=== PATIENT | female | born 1985 | race Caucasian/White ===

== ENCOUNTER 2018-10-30 08:59 | Inpatient (IN) | payer OTHER ==
[2018-10-30 09:50] VITALS: BMI 32.4
--- NOTE | 2018-10-30 13:25 | HP ---
CIWA Score Nausea/Vomitin-Mild Nausea/No Vomiting Muscle Tremors: 1-None Visible, but [place] Anxiety: 2 Agitation: 1-Slight > Activity Paroxysmal Sweats: 3 Orientation: 0-Oriented Tacttile Disturbances: 1-Very Mild Itch/Numbness Auditory Disturbances: 0-None Visual Disturbances: 0-None Headache: 1-Very Mild CIWA-Ar Total Score: 10 - Admission Criteria OASAS Guidelines: Admission for Medically Managed Detox: Requires at least one of the followin. CIWA greater than 12 2. Seizures within the past 24 hours 3. Delirium tremens within the past 24 hours 4. Hallucinations within the past 24 hours 5. Acute intervention needed for co occurring medical disorder 6. Acute intervention needed for co occurring psychiatric disorder 7. Severe withdrawal that cannot be handled at a lower level of care (continued vomiting, continued diarrhea, abnormal vital signs) requiring intravenous medication and/or fluids 8. Patient presents the following: Seizures, delirium tremens or hallucinations in the past 12 hours Admission Criteria Met: Admission criteria met Admission ROS S - [facility] Chief Complaint: I came to detox , i dont want to keep using drugs Allergies/Adverse Reactions: Allergies Allergy/AdvReac Type Severity Reaction Status Date / Time No Known Drug Allergies Allergy Verified 01/27/17 16:17 fish Allergy Severe Difficulty Uncoded 01/27/17 10:37 Breathing History of Present Illness: 33 y/o f pt with h/o polysubstance abuse/dependency since age 17.Pt has undergone multiple detoxs/ rehab and terminal supervisor programs . Now pt is seeking detox from benzos, alcohol . Pt is on OTP getting methadone 20mg /d but continue to use heroin 2 bags iv /day. Exam Limitations: No Limitations - Ebola screening Have you traveled outside of the country in the last 21 days: No Have you had contact with anyone from an Ebola affected area: No Do you have a fever: No - Review of Systems Constitutional: Night Sweats, Changes in sleep EENT: reports: Dental Problems (few missing teeth) Respiratory: reports: No Symptoms reported Cardiac: reports: No Symptoms Reported GI: reports: Constipated, Abdominal cramping : reports: Other (difficulty voiding) Musculoskeletal: reports: No Symptoms Reported Integumentary: reports: Rash (on abdomen) Neuro: reports: Headache (h/o migraines - last 2 months ago), Seizure Endocrine: reports: No Symptoms Reported Hematology: reports: No Symptoms Reported Psychiatric: reports: Agitated, Anxious, Depressed Other Systems: Reviewed and Negative Patient History - Patient Medical History Hx Anemia: No Hx Asthma: No Hx Chronic Obstructive Pulmonary Disease (COPD): No Hx Cancer: No Hx Cardiac Disorders: No Hx Congestive Heart Failure: No Hx Hypertension: Yes (catapres) Hx Hypercholesterolemia: No Hx Pacemaker: No HX Cerebrovascular Accident: No Hx Seizures: Yes (last 2011) Hx Dementia: No Hx Diabetes: No Hx Gastrointestinal Disorders: No Hx Liver Disease: No Hx Genitourinary Disorders: No Hx Sexually Transmitted Disorders: No Hx Renal Disease (ESRD): No Hx Thyroid Disease: No Hx Human Immunodeficiency Virus (HIV): No (negative test 6 months ago. ) Hx Hepatitis C: Yes (dx'ed 2017, no tx ) Hx Depression: Yes Hx Suicide Attempt: Yes (2007- pill OD with xanax , percocet ) Hx Bipolar Disorder: Yes Hx Schizophrenia: Yes (schizoeffecive d/o ) - Patient Surgical History Past Surgical History: No Hx Neurologic Surgery: No Hx Cataract Extraction: No Hx Cardiac Surgery: No Hx Lung Surgery: No Hx Breast Surgery: No Hx Breast Biopsy: No Hx Abdominal Surgery: No Hx Appendectomy: No Hx Cholecystectomy: No Hx Genitourinary Surgery: No Hx Section: No Hx Orthopedic Surgery: No Hx Hysterectomy: No Anesthesia Reaction: No - PPD History Documented Results: Negative w/o proof PPD to be Administered?: No - Reproductive History Patient is a Female of Child Bearing Age (11 -55 yrs old): Yes Last Menstrual Period: 10/30/18 LMP comment: previous lmp 08/2018 Patient : No - Smoking Cessation Smoking history: Current every day smoker Have you smoked in the past 12 months: Yes Aproximately how many cigarettes per day: 20 Hx Chewing Tobacco Use: No Initiated information on smoking cessation: Yes 'Breaking Loose' booklet given: 10/30/18 - Substance & Tx. History Hx Alcohol Use: Yes Hx Substance Use: Yes Substance Use Type: Alcohol, Tranquilizers Hx Substance Use Treatment: Yes (multiple @ [facility] OTP. ) - Substances abused Alprazolam (Xanax) Substance route: Oral Frequency: Daily Amount used: 2-2 mg/day Age of first use: 21 Date of last use: 10/24/18 Alcohol Substance route: Oral Frequency: Daily Amount used: [id number]/day or vodka 1 pt /day Age of first use: 16 Date of last use: 10/30/18 Benzodiazepine (Klonopin) Substance route: Oral Frequency: Daily Amount used: 2mg bid Age of first use: 21 Date of last use: 10/30/18 Family Disease History - Family Disease History Family History: Unable to Obtain Other Family History: no family members Admission Physical Exam [facility] - Vital Signs Vital Signs: Vital Signs - 24 hr 10/30/18 09:17 Temperature 97.9 F Pulse Rate 88 Respiratory 18 Rate Blood Pressure 142/84 33 y/o obese f pt in nad appearing tired , cooperative with exam . - Physical General Appearance: Yes: Obese, Sweating, Anxious HEENTM: Yes: EOMI, Normocephalic, JAMIE, Muffled/Hoarse Voice Respiratory: Yes: Chest Non-Tender, Lungs Clear, Normal Breath Sounds, No Respiratory Distress Neck: Yes: Supple, Trachea in good position Breast: Yes: Breast Exam Deferred Cardiology: Yes: Regular Rhythm, Regular Rate, S1, S2 Abdominal: Yes: Non Tender, Soft, Increased Bowel Sounds, Protuberent Genitourinary: Yes: Hesitency Back: Yes: Decreased Range of Motion Musculoskeletal: Yes: Back pain Neurological: Yes: worship leader II-XII NML intact, Fully Oriented, Alert, Depressed Affect Integumentary: Yes: Moist, Track [place] (left > rt), Other (multiple tattos) Lymphatic: Yes: Within Normal Limits - Diagnostic (1) Alcohol dependence with uncomplicated withdrawal Current Visit: Yes Status: Chronic (2) Nicotine dependence Current Visit: Yes Status: Chronic (3) Opioid dependence on agonist therapy Current Visit: Yes Status: Chronic (4) Schizoaffective disorder Current Visit: Yes Status: Chronic (5) Migraines Current Visit: No Status: Chronic Cleared for Admission [facility] - Detox or Rehab [facility] Level of Care: Medically Managed Detox Regimen/Protocol: Valium Breathalyzer - Breathalyzer Breathalyzer: 0 Urine Drug Screen - Test Device Lot number: [id number] Expiration date: 08/08/20 - Control Is test valid?: Yes - Results Drug screen NEGATIVE: No Urine drug screen results: THC-Marijuana, FEN-Fentanyl, MOP-Opiates, OXY- Oxycodone, MTD-Methadone Inpatient Rehab Admission - Rehab Decision to Admit Inpatient rehab admission?: No - Initial Determination Are CD services needed?: Yes Free of communicable disease: Yes Not in need of hospitalization: No - Rehab Admission Criteria Previous failed treatment: Yes Poor recovery environment: Yes Comorbidities: No Lacks judgement: Yes Patient is meeting Inpatient Rehab admission criteria:: Yes
[2018-10-30] MEDS ORDERED: IBUPROFEN 400 MG TABLET (FP) PO PRN (13:50)
[2018-10-30] MEDS ORDERED: NICOTINE POLACRILEX 4 MG GUM BUC PRN (13:50)
[2018-10-30] MEDS ORDERED: ACETAMINOPHEN 325 MG TABLET (FP) PO PRN ×2 (13:50)
[2018-10-30] MEDS ORDERED: MENTHOL/PHENOL 1 EACH UD MM PRN (13:50)
[2018-10-30] MEDS ORDERED: MAG HYDROX/AL HYDROX/SIMETH 30 ML UNIT-DOSE CUP PO PRN (13:50)
[2018-10-30] MEDS ORDERED: hydrOXYzine HCL 25 MG TABLET (FP) PO PRN (13:50)
[2018-10-30] MEDS ORDERED: diazePAM 5 MG TABLET PO PRN (13:50)
[2018-10-30] MEDS ORDERED: MAGNESIUM CITRATE 300 ML BOTTLE PO PRN (13:50)
[2018-10-30] MEDS ORDERED: BISMUTH SUBSALICYLATE 262 MG/15 ML BTL PO PRN (13:50)
[2018-10-30] MEDS ORDERED: ONDANSETRON *ODT* 4 MG TABLET SL PRN (13:50)
[2018-10-30] MEDS ORDERED: guaiFENesin 200 MG/10 ML 10 ML UNIT-DOSE CUPS PO PRN (13:50)
[2018-10-30] MEDS ORDERED: MAGNESIUM HYDROX 2400MG/30ML ORAL SUSPENSION 30 ML CUP PO PRN (13:50)
[2018-10-30] MEDS: diazePAM 5 MG TABLET PO SCH ×2 (15:10→22:39)
[2018-10-30] MEDS: MELATONIN 5 MG TABLETS PO PRN (22:39)
[2018-10-30] MEDS: THIAMINE HCL 100 MG TABLET (FP) PO SCH (22:39)
[2018-10-30] MEDS: CLOTRIMAZOLE/BETAMET DIPROP 15 GM TUBE TP SCH (22:41)
[2018-10-30] MEDS: cloNIDine HCL 0.1 MG TABLET PO SCH (23:30)
[2018-10-31] MEDS: METHADONE HCL 40 MG DISPERSABLE TABLET PO SCH (06:06)
[2018-10-31] MEDS: diazePAM 5 MG TABLET PO SCH ×3 (06:06→22:15)
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
[2018-10-31] MEDS: CLOTRIMAZOLE/BETAMET DIPROP 15 GM TUBE TP SCH ×2 (10:50→22:16)
[2018-10-31] MEDS: cloNIDine HCL 0.1 MG TABLET PO SCH ×2 (10:50→22:15)
[2018-10-31] MEDS: NICOTINE 21 MG/24 HOURS TOPICAL PATCH TD SCH (10:50)
[2018-10-31] MEDS: PRENATAL VITAMINS W/ FOLIC ACID TABLET (FP) PO SCH (10:50)
--- NOTE | 2018-10-31 11:47 | PN ---
S CIWA - CIWA Score Nausea/Vomitin-No Nausea/No Vomiting Muscle Tremors: 3 Anxiety: 3 Agitation: 3 Paroxysmal Sweats: 3 Orientation: 0-Oriented Tacttile Disturbances: 0-None Auditory Disturbances: 0-None Visual Disturbances: 0-None Headache: 0-None Present CIWA-Ar Total Score: 12 [facility] Progress Note (SOAP) Subjective: headache sweats shakes interrupted sleep tired restless agitation Objective: 10/31/18 11:46 Vital Signs Temperature 97.9 F 10/31/18 10:01 Pulse Rate 66 10/31/18 10:01 Respiratory Rate 16 10/31/18 10:01 Blood Pressure 111/70 10/31/18 10:01 O2 Sat by Pulse Oximetry (%) Laboratory Tests 10/30/18 13:10 POC Urine HCG, Qual Negative rest of labs pending aaox3 ambulating no acute distress Assessment: 10/31/18 11:47 withdrawal sx Plan: continue detox increase fluids motrin/tylenol prn
[2018-10-31 12:23] LABS: ALBUMIN 3.8 g/dl (3.4-5.0); BILIRUBIN,TOTAL 0.4 mg/dL (0.2-1); BLOOD UREA NITROGEN 9.9 mg/dL (7-18); CALCIUM 9.3 mg/dL (8.5-10.1); CREATININE 1.2 mg/dL (0.55-1.3); POTASSIUM 3.7 mmol/L (3.5-5.1); TOT PROT 7.8 g/dl (6.4-8.2)
[2018-10-31 12:25] LABS: BASO % 0.4 % (0-2.0); EOS % 3.9 % (0-4.5); HEMATOCRIT 43.5 % (32.4-45.2); HEMOGLOBIN 14.9 GM/dL (10.7-15.3); LYMPH % 41.5 % (8-40); MCH 30.7 pg (25.7-33.7); MCHC 34.1 g/dl (32.0-36.0); MEAN CELL VOLUME 89.9 fl (80-96); MONO % 6.5 % (3.8-10.2); NEUT % 47.7 % (42.8-82.8); PLATELET COUNT 223 K/MM3 (134-434); RBC 4.84 M/mm3 (3.60-5.2); RDW 13.8 % (11.6-15.6); WHITE BLOOD COUNT 6.3 K/mm3 (4.0-10.0)
[2018-10-31] MEDS ORDERED: SUVOREXANT 10 MG TABLET PO PRN (22:00)
[2018-10-31] MEDS ORDERED: PRAZOSIN HCL 1 MG CAPSULE PO SCH (22:00)
[2018-10-31] MEDS: QUEtiapine FUMARATE 400 MG TABLET PO SCH (22:14)
[2018-10-31] MEDS: THIAMINE HCL 100 MG TABLET (FP) PO SCH (22:15)
[2018-11-01] MEDS: METHADONE HCL 40 MG DISPERSABLE TABLET PO SCH (05:54)
[2018-11-01] MEDS: diazePAM 5 MG TABLET PO SCH ×2 (05:55→17:14)
[2018-11-01] MEDS: PRENATAL VITAMINS W/ FOLIC ACID TABLET (FP) PO SCH (10:20)
[2018-11-01] MEDS: cloNIDine HCL 0.1 MG TABLET PO SCH ×2 (10:20→22:14)
[2018-11-01] MEDS: NICOTINE 21 MG/24 HOURS TOPICAL PATCH TD SCH (10:22)
[2018-11-01] MEDS: CLOTRIMAZOLE/BETAMET DIPROP 15 GM TUBE TP SCH ×2 (10:22→22:20)
--- NOTE | 2018-11-01 12:52 | PN ---
S CIWA - CIWA Score Nausea/Vomitin-No Nausea/No Vomiting Muscle Tremors: 3 Anxiety: 2 Agitation: 2 Paroxysmal Sweats: 1-Minimal Palms Moist Orientation: 0-Oriented Tacttile Disturbances: 0-None Auditory Disturbances: 0-None Visual Disturbances: 0-None Headache: 0-None Present CIWA-Ar Total Score: 8 B[facility] Progress Note (SOAP) Subjective: sweats I want my methadone scheduled for 7am not 6am. the timing is too early for me Objective: 11/01/18 12:50 Vital Signs Temperature 97.7 F 11/01/18 09:24 Pulse Rate 87 11/01/18 09:24 Respiratory Rate 16 11/01/18 09:24 Blood Pressure 109/58 L 11/01/18 09:24 O2 Sat by Pulse Oximetry (%) Laboratory Tests 10/30/18 10/31/18 10/31/18 13:10 07:00 07:00 WBC RBC Hgb Hct MCV MCH MCHC RDW Plt Count MPV Absolute Neuts (auto) Neutrophils % Lymphocytes % Monocytes % Eosinophils % Basophils % Nucleated RBC % Sodium 138 Potassium 3.7 Chloride 104 Carbon Dioxide 28 Anion Gap 7 L BUN 9.9 Creatinine 1.2 Est GFR (CKD-EPI)AfAm 69.25 Est GFR (CKD-EPI)NonAf 59.75 Random Glucose 145 H Calcium 9.3 Total Bilirubin 0.4 AST 25 ALT 42 Alkaline Phosphatase 85 Total Protein 7.8 Albumin 3.8 POC Urine HCG, Qual Negative RPR Titer Nonreactive 10/31/18 07:00 WBC 6.3 RBC 4.84 Hgb 14.9 Hct 43.5 MCV 89.9 MCH 30.7 MCHC 34.1 RDW 13.8 Plt Count 223 MPV 11.0 Absolute Neuts (auto) 3.0 Neutrophils % 47.7 Lymphocytes % 41.5 H Monocytes % 6.5 Eosinophils % 3.9 Basophils % 0.4 Nucleated RBC % 0 Sodium Potassium Chloride Carbon Dioxide Anion Gap BUN Creatinine Est GFR (CKD-EPI)AfAm Est GFR (CKD-EPI)NonAf Random Glucose Calcium Total Bilirubin AST ALT Alkaline Phosphatase Total Protein Albumin POC Urine HCG, Qual RPR Titer labs noted aaox3 ambulating no acute distress Assessment: 11/01/18 12:51 mild withdrawal sx Plan: continue detox increase fluids methadone timing if for 7am as per pt request d/c in am
[2018-11-01] MEDS: METHOCARBAMOL 500 MG TABLET PO PRN (17:13)
[2018-11-01] MEDS: THIAMINE HCL 100 MG TABLET (FP) PO SCH (22:14)
[2018-11-01] MEDS: QUEtiapine FUMARATE 400 MG TABLET PO SCH (22:14)
[2018-11-01] MEDS: MELATONIN 5 MG TABLETS PO PRN (22:17)
[2018-11-02] MEDS ORDERED: diazePAM 5 MG TABLET PO ONE (06:00)
[2018-11-02] MEDS: METHOCARBAMOL 500 MG TABLET PO PRN (06:46)
[2018-11-02] MEDS ORDERED: METHADONE HCL 40 MG DISPERSABLE TABLET PO SCH (07:00)
--- NOTE | 2018-11-02 08:52 | DS ---
[facility] Detox Discharge Summary Admission Date: 10/30/18 Discharge Date: 11/02/18 - History Present History: Alcohol Dependence, Sedative Dependence - Physical Exam Results Vital Signs: Vital Signs Temperature 96.8 F L 11/02/18 06:44 Pulse Rate 88 11/02/18 06:44 Respiratory Rate 16 11/02/18 06:44 Blood Pressure 124/74 11/02/18 06:44 O2 Sat by Pulse Oximetry (%) Pertinent Admission Physical Exam Findings: pt arrived in withdrawal sx Laboratory Tests 10/30/18 10/31/18 10/31/18 13:10 07:00 07:00 WBC RBC Hgb Hct MCV MCH MCHC RDW Plt Count MPV Absolute Neuts (auto) Neutrophils % Lymphocytes % Monocytes % Eosinophils % Basophils % Nucleated RBC % Sodium 138 Potassium 3.7 Chloride 104 Carbon Dioxide 28 Anion Gap 7 L BUN 9.9 Creatinine 1.2 Est GFR (CKD-EPI)AfAm 69.25 Est GFR (CKD-EPI)NonAf 59.75 Random Glucose 145 H Calcium 9.3 Total Bilirubin 0.4 AST 25 ALT 42 Alkaline Phosphatase 85 Total Protein 7.8 Albumin 3.8 POC Urine HCG, Qual Negative RPR Titer Nonreactive 10/31/18 07:00 WBC 6.3 RBC 4.84 Hgb 14.9 Hct 43.5 MCV 89.9 MCH 30.7 MCHC 34.1 RDW 13.8 Plt Count 223 MPV 11.0 Absolute Neuts (auto) 3.0 Neutrophils % 47.7 Lymphocytes % 41.5 H Monocytes % 6.5 Eosinophils % 3.9 Basophils % 0.4 Nucleated RBC % 0 Sodium Potassium Chloride Carbon Dioxide Anion Gap BUN Creatinine Est GFR (CKD-EPI)AfAm Est GFR (CKD-EPI)NonAf Random Glucose Calcium Total Bilirubin AST ALT Alkaline Phosphatase Total Protein Albumin POC Urine HCG, Qual RPR Titer today pt is aaox3 ambulating no acute distress no s/s of withdrawals - Treatment Hospital Course: Detox Protocol Followed, Detoxed Safely, Responded well, Discharged Condition Good, Rehab Referral Accepted Patient has Accepted a [facility] - Medication Discharge Medications: Ambulatory Orders Methadone [Dolophine -] 120 mg PO DAILY 01/27/17 Quetiapine Fumarate [Seroquel -] 800 mg PO HS 01/27/17 cloNIDine HCL [Catapres -] 0.2 mg PO BID 01/27/17 Ziprasidone HCl [Geodon] 80 mg PO DAILY 10/30/18 - Diagnosis (1) Alcohol dependence with uncomplicated withdrawal Current Visit: Yes Status: Chronic (2) Sedative, hypnotic or anxiolytic dependence, uncomplicated Current Visit: Yes Status: Chronic (3) Substance induced mood disorder Current Visit: Yes Status: Acute (4) Substance-induced sleep disorder Current Visit: Yes Status: Acute (5) Bipolar disorder Current Visit: Yes Status: Chronic (6) HTN (hypertension) Current Visit: Yes Status: Chronic Qualifiers: Hypertension type: essential hypertension Qualified Code(s): I10 - Essential (primary) hypertension (7) Hepatitis-C Current Visit: Yes Status: Chronic (8) Nicotine dependence Current Visit: Yes Status: Chronic Qualifiers: Nicotine product type: cigarettes Substance use status: uncomplicated Qualified Code(s): F17.210 - Nicotine dependence, cigarettes, uncomplicated (9) Opioid dependence on agonist therapy Current Visit: Yes Status: Chronic (10) PTSD (post-traumatic stress disorder) Current Visit: Yes Status: Chronic (11) Schizoaffective disorder Current Visit: Yes Status: Chronic (12) Chronic pain of left ankle Current Visit: No Status: Chronic (13) Migraines Current Visit: No Status: Chronic - AMA Did Patient Leave Against Medical Advice: No (pt referred to [facility] inpatient rehab)
[2018-11-02] MEDS: cloNIDine HCL 0.1 MG TABLET PO SCH (09:17)
[2018-11-02] MEDS: PRENATAL VITAMINS W/ FOLIC ACID TABLET (FP) PO SCH (09:17)
[2018-11-02] MEDS: CLOTRIMAZOLE/BETAMET DIPROP 15 GM TUBE TP SCH (09:17)
[2018-11-02] MEDS: NICOTINE 21 MG/24 HOURS TOPICAL PATCH TD SCH (09:18)
[2018-11-02 09:37] VITALS: BP 153/76; PULSE 108; TEMP 97.7
== END 2018-11-02 12:15 | disposition home or self-care (01) | DRG 897 ==
LOC: YASAS 08:59 → Y6N 13:56
PROVIDERS: ADMIT Surgery; ATTEND Surgery
PROC: HZ2ZZZZ Detoxification Services for Substance Abuse Treatment (ICD-10-PCS; principal; 2018-10-30)
DX: F10.230 Alcohol dependence with withdrawal, uncomplicated (principal); F11.20 Opioid dependence, uncomplicated; F19.282 Other psychoactive substance dependence with psychoactive substance-induced sleep disorder; F13.230 Sedative, hypnotic or anxiolytic dependence with withdrawal, uncomplicated; F17.210 Nicotine dependence, cigarettes, uncomplicated; F19.24 Other psychoactive substance dependence with psychoactive substance-induced mood disorder; F31.9 Bipolar disorder, unspecified; F43.10 Post-traumatic stress disorder, unspecified; F25.9 Schizoaffective disorder, unspecified; I10 Essential (primary) hypertension; B18.2 Chronic viral hepatitis C; M25.572 Pain in left ankle and joints of left foot; G89.29 Other chronic pain; E66.9 Obesity, unspecified; Z68.32 Body mass index [BMI] 32.0-32.9, adult; Z86.69 Personal history of other diseases of the nervous system and sense organs; Z91.013 Allergy to seafood; Z91.5 Personal history of self-harm
CPT/HCPCS: 36415; 80053; 81025; 85025; 86593; J0735

== ENCOUNTER 2019-02-13 12:03 | Inpatient (IN) | payer OTHER ==
[2019-02-13 13:45] VITALS: BMI 30.9
--- NOTE | 2019-02-13 16:33 | HP ---
CIWA Score Nausea/Vomitin-No Nausea/No Vomiting Muscle Tremors: 4-Moderate,w/Arms Extend Anxiety: 3 Agitation: 1-Slight > Activity Paroxysmal Sweats: 2 Orientation: 0-Oriented Tacttile Disturbances: 0-None Auditory Disturbances: 0-None Visual Disturbances: 0-None Headache: 2-Mild CIWA-Ar Total Score: 12 - Admission Criteria OASAS Guidelines: Admission for Medically Managed Detox: Requires at least one of the followin. CIWA greater than 12 2. Seizures within the past 24 hours 3. Delirium tremens within the past 24 hours 4. Hallucinations within the past 24 hours 5. Acute intervention needed for co occurring medical disorder 6. Acute intervention needed for co occurring psychiatric disorder 7. Severe withdrawal that cannot be handled at a lower level of care (continued vomiting, continued diarrhea, abnormal vital signs) requiring intravenous medication and/or fluids 8. Admitting History and Physical - Admission Chief Complaint: alcohol abuse History Source: Patient Limitations to Obtaining History: No Limitations - Past Medical History Cardiovascular: Yes: HTN ...LMP: 10/30/18 Psych: Yes: Bipolar, Panic, Other (schizoaffective) - Past Surgical History Past Surgical History: Yes: None - Smoking History Smoking history: Current every day smoker Have you smoked in the past 12 months: Yes Aproximately how many cigarettes per day: 20 - Alcohol/Substance Use Hx Alcohol Use: Yes History of Substance Use: reports: Cocaine, Heroin, Marijuana, Prescription - Social History Usual Living Arrangement: Yes: Other (homeless) Admission [facility] Allergies/Adverse Reactions: Allergies Allergy/AdvReac Type Severity Reaction Status Date / Time No Known Drug Allergies Allergy Verified 02/13/19 13:20 fish Allergy Severe Difficulty Uncoded 02/13/19 13:20 Breathing History of Present Illness: 33 y.o. F PMH bipolar, schizophrenia, panic attacks, HTN. Patient is in methadone program at [address] EtOH: Daily use. Drinks beer, varies on the day. Has passed out from drinking, never fell and hit her head. Last drank 1 beer this morning. Has had 1 seizure many years ago from not drinking. Heroin: daily use, 2 bags. Injects, last use 2 bags this morning. Has been using since age 19. Was clean x 4 years, was in a residential program which helped her. Started using again once she moved back home. Xanax: daily use, 1 stick (2mg) per day. last used this morning. Crack cocaine: used 2 yrs ago mostly, recently had 1 hit but hasnt used consistently in about 1 year Marijuana: occasional Cigarettes: 1 pack/ day since age 17 PSH: none Social hx: homeless currently. Gets SSI. All: NKDA. Food: Fish. Meds: Seroquel, ambien, catapres, gabapentin. Her dr recently d/c'd klonopin 1 month ago Nurse reported patient BP 80/60; I rechecked BP manually, 110/90. Patient has hx of HTN and took her medications as prescribed this morning. Exam Limitations: No Limitations - Ebola screening Have you traveled outside of the country in the last 21 days: No Have you had contact with anyone from an Ebola affected area: No Do you have a fever: No - Review of Systems Constitutional: Diaphoresis, Weakness EENT: reports: No Symptoms Reported Respiratory: reports: No Symptoms reported Cardiac: reports: No Symptoms Reported GI: reports: Abdominal cramping : reports: No Symptoms Reported Musculoskeletal: reports: No Symptoms Reported Integumentary: reports: Bruising Neuro: reports: Headache, Tremors Endocrine: reports: No Symptoms Reported Hematology: reports: No Symptoms Reported Psychiatric: reports: Orientated x3, Anxious Patient History - Patient Medical History Hx Anemia: No Hx Asthma: No Hx Chronic Obstructive Pulmonary Disease (COPD): No Hx Cancer: No Hx Cardiac Disorders: No Hx Congestive Heart Failure: No Hx Hypertension: Yes (catapres) Hx Hypercholesterolemia: No Hx Pacemaker: No HX Cerebrovascular Accident: No Hx Seizures: Yes (last 2011) Hx Dementia: No Hx Diabetes: No Hx Gastrointestinal Disorders: No Hx Liver Disease: No Hx Genitourinary Disorders: No Hx Sexually Transmitted Disorders: No Hx Renal Disease (ESRD): No Hx Thyroid Disease: No Hx Human Immunodeficiency Virus (HIV): No (negative test 6 months ago. ) Hx Hepatitis C: Yes (dx'ed 2017, no tx ) Hx Depression: Yes Hx Suicide Attempt: Yes (2008- pill OD with xanax , percocet ) Hx Bipolar Disorder: Yes Hx Schizophrenia: Yes (schizoeffecive d/o ) - Patient Surgical History Past Surgical History: No Hx Neurologic Surgery: No Hx Cataract Extraction: No Hx Cardiac Surgery: No Hx Lung Surgery: No Hx Breast Surgery: No Hx Breast Biopsy: No Hx Abdominal Surgery: No Hx Appendectomy: No Hx Cholecystectomy: No Hx Genitourinary Surgery: No Hx Section: No Hx Orthopedic Surgery: No Hx Hysterectomy: No Anesthesia Reaction: No - Reproductive History Last Menstrual Period: 10/30/18 - Smoking Cessation Smoking history: Current every day smoker Have you smoked in the past 12 months: Yes Aproximately how many cigarettes per day: 20 Hx Chewing Tobacco Use: No Initiated information on smoking cessation: Yes 'Breaking Loose' booklet given: 02/13/19 - Substance & Tx. History Hx Alcohol Use: Yes Hx Substance Use: Yes Substance Use Type: Alcohol, Cocaine, Heroin, Marijuana, Opiates, Prescribed - Substances abused Alprazolam (Xanax) Substance route: Oral Frequency: Daily Amount used: 2 mg/day Age of first use: 32 Date of last use: 02/11/19 Alcohol Substance route: Oral Frequency: Daily Amount used: beer varying aounts daily Age of first use: 16 Date of last use: 02/13/19 Benzodiazepine (Klonopin) Substance route: Oral Frequency: Daily Amount used: 2mg bid Age of first use: 21 Date of last use: 10/30/18 Heroin Substance route: Injection Frequency: Daily Amount used: 2 BAGS Age of first use: 19 Date of last use: 02/13/19 Admission Physical Exam S - Vital Signs Vital Signs: Vital Signs - 24 hr 02/13/19 13:03 Temperature 97.6 F Pulse Rate 60 Respiratory 18 Rate Blood Pressure 80/60 L - Physical General Appearance: Yes: Mild Distress, Tremorous, Irritable, Anxious HEENTM: Yes: EOMI, Hearing grossly Normal, Normal ENT Inspection, Normocephalic , Normal Voice, JAMIE Respiratory: Yes: Lungs Clear, Normal Breath Sounds Neck: Yes: Within Normal Limits Cardiology: Yes: Regular Rhythm, Regular Rate, S1, S2 Abdominal: Yes: Normal Bowel Sounds, Non Tender, Soft Back: Yes: Normal Inspection Musculoskeletal: Yes: full range of Motion, Gait Steady Extremities: Yes: Normal Range of Motion, Non-Tender Neurological: Yes: rental salesperson II-XII NML intact, Fully Oriented, Alert, Normal Mood/ Affect Integumentary: Yes: Track [place]ridge (b/l UE's), Other (Patient has b/l UE healed scars from past self injurious behaviors) Lymphatic: Yes: Within Normal Limits - Diagnostic (1) Alcohol abuse Current Visit: Yes Status: Chronic (2) Bipolar disorder Current Visit: No Status: Chronic (3) HTN (hypertension) Current Visit: No Status: Chronic Qualifiers: Hypertension type: essential hypertension Qualified Code(s): I10 - Essential (primary) hypertension (4) Nicotine dependence Current Visit: No Status: Chronic Qualifiers: Nicotine product type: cigarettes Substance use status: uncomplicated Qualified Code(s): F17.210 - Nicotine dependence, cigarettes, uncomplicated (5) Schizoaffective disorder Current Visit: No Status: Chronic (6) Sedative, hypnotic or anxiolytic dependence, uncomplicated Current Visit: No Status: Chronic Cleared for Admission S - Detox or Rehab [facility] Level of Care: Medically Supervised Breathalyzer - Breathalyzer Breathalyzer: 0 POC Urine test - Result Urine Test Results: Negative - NO line present Urine Drug Screen - Test Device Lot number: [id number] Expiration date: 10/08/20 - Control Is test valid?: Yes - Results Drug screen NEGATIVE: No Urine drug screen results: MOP-Opiates, OXY-Oxycodone, MTD-Methadone, BZO- Benzodiazepines Inpatient Rehab Admission - Rehab Decision to Admit Inpatient rehab admission?: No
[2019-02-13] MEDS ORDERED: MELATONIN 5 MG TABLETS PO PRN (17:59)
[2019-02-13] MEDS ORDERED: MENTHOL/PHENOL 1 EACH UD MM PRN (17:59)
[2019-02-13] MEDS ORDERED: BISMUTH SUBSALICYLATE 524 MG/30 ML UD PO PRN (17:59)
[2019-02-13] MEDS ORDERED: MAGNESIUM CITRATE 300 ML BOTTLE PO PRN (17:59)
[2019-02-13] MEDS ORDERED: ACETAMINOPHEN 325 MG TABLET (FP) PO PRN ×2 (17:59)
[2019-02-13] MEDS ORDERED: hydrOXYzine PAMOATE 25 MG CAPSULE (FP) PO PRN (17:59)
[2019-02-13] MEDS ORDERED: IBUPROFEN 400 MG TABLET (FP) PO PRN (17:59)
[2019-02-13] MEDS ORDERED: MAGNESIUM HYDROX 2400MG/30ML ORAL SUSPENSION 30 ML CUP PO PRN (17:59)
--- NOTE | 2019-02-13 18:06 | PN ---
Teaching Attending Note Name of Resident: Meg Betts ATTENDING PHYSICIAN STATEMENT I saw and evaluated the patient. I reviewed the resident's note and discussed the case with the resident. I agree with the resident's findings and plan as documented. SUBJECTIVE:[age] y.o. Ffemale pt here requesting detox from benzo use, reports illicit use 2mg xanax / day since she no longer has rx , etoh - 1 beer/day in the mornings " for my anxiety " , denies blackouts, tremors, + seizure x once after completing residential rehab , denies use at that time . [facility] 120 mg, highest dose 150 mg in 2007 , latest dose today . states program is not aware of her etoh use . heroin 2 bags iv in UE cocaine - sporadic use . cannabis -occasional tobacco : 1 ppd PMH bipolar, schizophrenia, panic attacks, HTN. Patient is in methadone program at [facility] 120mg. PSH: none Social hx: homeless , SSI. OBJECTIVE: wnwd This report was requested by: Sherron Gupta | Reference #: [id number] Others' Prescriptions Patient Name: Clementine Mckee Date: 1985 Address: [address] [place] [address] Sex: Female Rx Written Rx Dispensed Drug Quantity Days Supply Prescriber Name 01/05/2019 01/05/2019 zolpidem tartrate 10 mg tablet 30 30 Blake Yanes (SOLID WASTE TECHNICIAN) 12/07/2018 12/07/2018 zolpidem tartrate 10 mg tablet 30 30 Pratima Jiang 10/11/2018 10/13/2018 zolpidem tartrate 10 mg tablet 30 30 Blake Yanes (SOLID WASTE TECHNICIAN) 09/14/2018 09/16/2018 zolpidem tartrate 10 mg tablet 30 30 TigenoBlake reyes (SOLID WASTE TECHNICIAN) 08/17/2018 08/22/2018 zolpidem tartrate 10 mg tablet 30 30 Blake Yanes (SOLID WASTE TECHNICIAN) 07/21/2018 07/22/2018 zolpidem tartrate 10 mg tablet 30 30 TigBlake kumar (SOLID WASTE TECHNICIAN) 06/21/2018 06/21/2018 clonazepam 0.5 mg tablet 30 30 TigBlake kumar (SOLID WASTE TECHNICIAN) 05/24/2018 05/24/2018 clonazepam 0.5 mg tablet 60 30 JoaquínBlake (SOLID WASTE TECHNICIAN) 05/24/2018 05/24/2018 zolpidem tartrate 10 mg tablet 30 30 JoaquínBlake (SOLID WASTE TECHNICIAN) 04/17/2018 04/25/2018 clonazepam 0.5 mg tablet 60 30 Ana MmamieamyBlake (SOLID WASTE TECHNICIAN) 03/21/2018 03/31/2018 zolpidem tartrate 10 mg tablet 30 30 Ana MmamieamyBlake (SOLID WASTE TECHNICIAN) 03/21/2018 03/27/2018 clonazepam 0.5 mg tablet 30 15 Ana MmamieamyBlake (SOLID WASTE TECHNICIAN) 02/27/2018 03/01/2018 zolpidem tartrate 10 mg tablet 30 30 JoaquínBlake (SOLID WASTE TECHNICIAN) 02/27/2018 02/27/2018 clonazepam 0.5 mg tablet 60 30 Ana MmameiamyBlake (SOLID WASTE TECHNICIAN) Vital Signs - 24 hr 02/13/19 13:03 Temperature 97.6 F Pulse Rate 60 Respiratory 18 Rate Blood Pressure 80/60 L ASSESSMENT AND PLAN: Opiate dependence on agonist therapy Sedative dependence - Valium detox Alcohol use, episodic nicotine dependence- smoking cessation counseling
[2019-02-13] MEDS: diazePAM 5 MG TABLET PO PRN (18:56)
[2019-02-13] MEDS: diazePAM 5 MG TABLET PO SCH (22:44)
[2019-02-13] MEDS: METHOCARBAMOL 500 MG TABLET PO PRN (22:44)
[2019-02-13] MEDS: THIAMINE HCL 100 MG TABLET (FP) PO SCH (22:45)
[2019-02-14] MEDS: NICOTINE 14 MG/24 HOURS TOPICAL PATCH TD SCH ×2 (00:46→10:09)
[2019-02-14] MEDS: diazePAM 5 MG TABLET PO SCH ×3 (05:31→22:22)
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
[2019-02-14] MEDS: METHADONE HCL 40 MG DISPERSABLE TABLET PO SCH (10:09)
[2019-02-14] MEDS: PRENATAL VITAMINS W/ FOLIC ACID TABLET (FP) PO SCH (10:09)
[2019-02-14] MEDS: cloNIDine HCL 0.1 MG TABLET PO SCH ×2 (15:09→22:22)
[2019-02-14] MEDS: GABAPENTIN 300 MG CAPSULE (FP) PO SCH ×2 (15:09→22:22)
--- NOTE | 2019-02-14 15:38 | PN ---
[facility] CIWA - CIWA Score Nausea/Vomitin Muscle Tremors: 2 Anxiety: 2 Agitation: 2 Paroxysmal Sweats: No Perspiration Orientation: 0-Oriented Tacttile Disturbances: 1-Very Mild Itch/Numbness Auditory Disturbances: 0-None Visual Disturbances: 0-None Headache: 1-Very Mild CIWA-Ar Total Score: 10 [facility] Progress Note (SOAP) Subjective: alert,irritable,anxious,interrupted sleep,pain in the body Objective: 02/14/19 15:36 Vital Signs Temperature 97.3 F L 02/14/19 13:37 Pulse Rate 84 02/14/19 13:37 Respiratory Rate 18 02/14/19 13:37 Blood Pressure 129/77 02/14/19 13:37 O2 Sat by Pulse Oximetry (%) Laboratory Last Values POC Urine HCG, Qual Negative 02/13/19 15:05 02/14/19 15:37 labs pending Assessment: 02/14/19 15:37 withdrawal symptom Plan: continue detox patient would like valium regimen
[2019-02-14] MEDS ORDERED: SUVOREXANT 10 MG TABLET PO PRN (22:00)
[2019-02-14] MEDS: QUEtiapine FUMARATE 400 MG TABLET PO SCH (22:22)
[2019-02-14] MEDS: THIAMINE HCL 100 MG TABLET (FP) PO SCH (22:22)
[2019-02-14] MEDS: ONDANSETRON *ODT* 4 MG TABLET SL PRN (23:22)
[2019-02-15] MEDS: METHADONE HCL 40 MG DISPERSABLE TABLET PO SCH (06:12)
[2019-02-15] MEDS: diazePAM 5 MG TABLET PO SCH ×2 (06:13→17:28)
[2019-02-15] MEDS: GABAPENTIN 300 MG CAPSULE (FP) PO SCH ×3 (06:13→21:39)
[2019-02-15] MEDS ORDERED: NAPHAZOLINE 0.1% OPHTHALMIC SOLUTION 15 ML BOTTLE OD PRN (07:43)
[2019-02-15 09:44] LABS: HEMATOCRIT 43.2 % (32.4-45.2); HEMOGLOBIN 14.8 GM/dL (10.7-15.3); MCH 31.5 pg (25.7-33.7); MCHC 34.3 g/dl (32.0-36.0); MEAN CELL VOLUME 91.9 fl (80-96); MEAN PLT VOLUME 9.2 fl (7.5-11.1); PLATELET COUNT 242 K/MM3 (134-434); RBC 4.71 M/mm3 (3.60-5.2); RDW 13.6 % (11.6-15.6)
[2019-02-15 09:58] LABS: ALBUMIN 4.1 g/dl (3.4-5.0); BILIRUBIN,TOTAL 0.3 mg/dL (0.2-1); BLOOD UREA NITROGEN 11.3 mg/dL (7-18); CREATININE 1.1 mg/dL (0.55-1.3); POTASSIUM 4.2 mmol/L (3.5-5.1); TOT PROT 8.1 g/dl (6.4-8.2)
[2019-02-15] MEDS: PRENATAL VITAMINS W/ FOLIC ACID TABLET (FP) PO SCH (10:37)
[2019-02-15] MEDS: cloNIDine HCL 0.1 MG TABLET PO SCH ×2 (10:37→21:39)
[2019-02-15] MEDS: NICOTINE 14 MG/24 HOURS TOPICAL PATCH TD SCH (10:37)
[2019-02-15] MEDS: diazePAM 5 MG TABLET PO PRN ×2 (10:41→20:30)
--- NOTE | 2019-02-15 11:01 | PN ---
[facility] Progress Note Note: Patient approached marine underwriter and requests to be ordered Elavil 100 mg/hs. This is confirmed by [phone] [facility] at [address] [place] [address]. As per pharmacy staff, script for 30 days supply of Elavil 100 mg/hs was filled on 01/11/19 paty refills for same medication was due on 02/14/19
[2019-02-15] MEDS: TETRAHYDROZOLINE HCL EYE DROPS OS PRN ×2 (11:33→17:29)
--- NOTE | 2019-02-15 12:34 | PN ---
[facility] CIWA - CIWA Score Nausea/Vomitin-No Nausea/No Vomiting Muscle Tremors: 3 Anxiety: 2 Agitation: 2 Paroxysmal Sweats: 2 Orientation: 0-Oriented Tacttile Disturbances: 0-None Auditory Disturbances: 0-None Visual Disturbances: 0-None Headache: 0-None Present CIWA-Ar Total Score: 9 [facility] Progress Note (SOAP) Subjective: dry eyes body aches interrupted sleep agitation Objective: 02/15/19 12:33 Vital Signs Temperature 97.7 F 02/15/19 10:34 Pulse Rate 95 H 02/15/19 10:34 Respiratory Rate 18 02/15/19 10:34 Blood Pressure 118/95 02/15/19 10:34 O2 Sat by Pulse Oximetry (%) Laboratory Tests 02/13/19 02/15/19 02/15/19 15:05 08:00 08:00 WBC RBC Hgb Hct MCV MCH MCHC RDW Plt Count MPV Sodium 135 L Potassium 4.2 Chloride 100 Carbon Dioxide 28 Anion Gap 8 BUN 11.3 Creatinine 1.1 Est GFR (CKD-EPI)AfAm 76.93 Est GFR (CKD-EPI)NonAf 66.38 Random Glucose 224 H Calcium 10.0 Total Bilirubin 0.3 AST 21 ALT 32 Alkaline Phosphatase 75 Total Protein 8.1 Albumin 4.1 POC Urine HCG, Qual Negative RPR Titer Nonreactive 02/15/19 08:00 WBC 8.0 RBC 4.71 Hgb 14.8 Hct 43.2 MCV 91.9 MCH 31.5 MCHC 34.3 RDW 13.6 Plt Count 242 MPV 9.2 D Sodium Potassium Chloride Carbon Dioxide Anion Gap BUN Creatinine Est GFR (CKD-EPI)AfAm Est GFR (CKD-EPI)NonAf Random Glucose Calcium Total Bilirubin AST ALT Alkaline Phosphatase Total Protein Albumin POC Urine HCG, Qual RPR Titer labs noted aaox3 ambulating no acute distress Assessment: 02/15/19 12:33 withdrawal sx Plan: continue detox increase fluids visine prn
[2019-02-15] MEDS: ONDANSETRON *ODT* 4 MG TABLET SL PRN (12:51)
[2019-02-15] MEDS: QUEtiapine FUMARATE 400 MG TABLET PO SCH (21:39)
[2019-02-15] MEDS: THIAMINE HCL 100 MG TABLET (FP) PO SCH (21:39)
[2019-02-15] MEDS: AMITRIPTYLINE HCL 100 MG TABLET PO SCH (21:39)
[2019-02-16] MEDS: METHADONE HCL 40 MG DISPERSABLE TABLET PO SCH (05:55)
[2019-02-16] MEDS: GABAPENTIN 300 MG CAPSULE (FP) PO SCH ×3 (05:55→21:39)
[2019-02-16] MEDS ORDERED: diazePAM 5 MG TABLET PO ONE (06:00)
[2019-02-16] MEDS: cloNIDine HCL 0.1 MG TABLET PO SCH ×3 (09:43→21:40)
[2019-02-16] MEDS: PRENATAL VITAMINS W/ FOLIC ACID TABLET (FP) PO SCH (09:43)
[2019-02-16] MEDS: NICOTINE 14 MG/24 HOURS TOPICAL PATCH TD SCH (09:43)
[2019-02-16] MEDS: NICOTINE POLACRILEX 2 MG GUM BUC PRN ×2 (09:44→18:26)
--- NOTE | 2019-02-16 09:51 | PN ---
[facility] CIWA - CIWA Score Nausea/Vomitin-No Nausea/No Vomiting Muscle Tremors: 1-None Visible, but [place] Anxiety: 1-Mildly Anxious Agitation: 1-Slight > Activity Paroxysmal Sweats: No Perspiration Orientation: 0-Oriented Tacttile Disturbances: 1-Very Mild Itch/Numbness Auditory Disturbances: 0-None Visual Disturbances: 0-None Headache: 1-Very Mild CIWA-Ar Total Score: 5 [facility] Progress Note (SOAP) Subjective: alert,irritable,anxious Objective: 02/16/19 09:50 Vital Signs Temperature 96.7 F L 02/16/19 09:18 Pulse Rate 92 H 02/16/19 09:18 Respiratory Rate 18 02/16/19 09:18 Blood Pressure 125/52 L 02/16/19 09:18 O2 Sat by Pulse Oximetry (%) Assessment: 02/16/19 09:50 detox completed Plan: [facility] level of care continuation
--- NOTE | 2019-02-16 13:35 | HP ---
[facility] Rehab Assess/Revision - Vital signs Vital Signs: Vital Signs Period Temp Pulse Resp BP Sys/Gannon Pulse Ox Last 24 Hr 96.7 F-98.0 F 70-92 18-20 84-156/48-86 Inpatient Rehab Admission - Rehab Decision to Admit Inpatient rehab admission?: Yes - Initial Determination Are CD services needed?: Yes Free of communicable disease: Yes Not in need of hospitalization: Yes - Rehab Admission Criteria Previous failed treatment: Yes Poor recovery environment: Yes Comorbidities: Yes Lacks judgement: No Patient is meeting Inpatient Rehab admission criteria:: Yes
--- NOTE | 2019-02-16 18:08 | PN ---
Psychiatric Progress Note Vital Signs: Vital Signs Period Temp Pulse Resp BP Sys/Gannon Pulse Ox Last 24 Hr 96.7 F-97.3 F 71-92 18-20 89-156/48-86 Date of Session: 02/16/19 Chief Complaint:: " I have anxiety and wake up throughout the night." HPI: Patient admitted to for treatment of alcohol, opioid and benzodiazepine dependence. Patient currently c/o anxiety throughout the day and difficulty sleeping through the night. ROS: Patient is coherent, alert + oriented X3. Current Medications: Active Medications Generic Name Dose Route Start Last Admin Trade Name Freq PRN Reason Stop Dose Admin Acetaminophen 650 mg 02/13/19 17:59 Tylenol - PO Q6H PRN PAIN LEVEL 4 - 6 Acetaminophen 650 mg 02/13/19 17:59 Tylenol - PO Q6H PRN FEVER Al Hydroxide/Mg Hydroxide 30 ml 02/13/19 17:59 Mylanta Oral Suspension - PO Q6H PRN DYSPEPSIA Amitriptyline HCl 100 mg 02/15/19 22:00 02/15/19 21:39 Elavil - PO 100 mg HS JOSIE Administration Amitriptyline HCl 25 mg 02/17/19 10:00 Elavil - PO DAILY@1000,1600 JOSIE Bismuth Subsalicylate 524 mg 02/13/19 17:59 Pepto-Bismol - PO Q1H PRN DIARRHEA Clonidine 0.2 mg 02/16/19 10:00 02/16/19 10:44 Catapres - PO Not Given BID JOSIE Eucalyptus/Menthol/Phenol/Sorbitol 1 each 02/13/19 17:59 Cepastat Lozenge - MM 02/19/19 17:59 Q4H PRN SORE THROAT Gabapentin 300 mg 02/14/19 14:00 02/16/19 14:53 Neurontin - PO 300 mg TID JOSIE Administration Hydroxyzine Pamoate 25 mg 02/13/19 17:59 Vistaril - PO 02/19/19 17:59 Q6H PRN For Anxiety Ibuprofen 400 mg 02/13/19 17:59 Motrin - PO Q6H PRN PAIN LEVEL 1 - 3 Magnesium Citrate 300 ml 02/13/19 17:59 Citroma - PO Q48H PRN CONSTIPATION Magnesium Hydroxide 30 ml 02/13/19 17:59 Milk Of Magnesia - PO PRN PRN CONSTIPATION Methadone HCl 120 mg 02/14/19 08:45 02/16/19 05:55 Dolophine - PO 02/21/19 08:44 120 mg DAILY@0600 JOSIE Administration Methocarbamol 500 mg 02/13/19 17:59 02/13/19 22:44 Robaxin - PO 02/19/19 17:59 500 mg Q6H PRN Administration MUSCLE SPASMS Nicotine 14 mg 02/13/19 19:00 02/16/19 09:43 Nicoderm Patch - TD 14 mg DAILY JOSIE Administration Nicotine Polacrilex 2 mg 02/13/19 17:59 02/16/19 09:44 Nicorette Gum - BUC 2 mg Q2H PRN Administration NICOTINE REPLACEMENT RX Ondansetron HCl 8 mg 02/14/19 23:10 02/15/19 12:51 Zofran Odt - SL 8 mg Q6H PRN Administration NAUSEA AND/OR VOMITING Multivit/Folic Acid/Iron 1 tab 02/14/19 10:00 02/16/19 09:43 Vitamins (Sjr) - PO Not Given DAILY JOSIE Quetiapine Fumarate 800 mg 02/14/19 22:00 02/15/19 21:39 Seroquel - PO 800 mg HS JOSIE Administration Suvorexant 10 mg 02/14/19 22:00 Belsomra PO 02/17/19 21:59 HS PRN INSOMNIA Tetrahydrozoline HCl 1 drop 02/15/19 10:37 02/15/19 17:29 Visine - OS 1 drop QID PRN Administration DRY EYES Thiamine HCl 100 mg 02/13/19 22:00 02/15/19 21:39 Vitamin B1 - PO 100 mg HS JOSIE Administration Medication(s) Change(s): Yes. Current Side Effect: No Lab tests ordered: No Lab tests reviewed: Yes Provider note:: Patient seen by Dr. Byrne. Dr. Byrne's note read and appreciated. Patient with a history of schizoaffective and is currently treated with Seroquel 800mg HS + Gabapentin 300mg TID + Elavil 100mg HS. States that she is prescribed klonopin 2mg BID by her psychiatrist although did not receive a script last month. States that she would be satisified with valium but was informed that benzodiazepines will not be prescribed in Rehab. Patient given a one time dose of valium 5mg on 02/16/19 @0600. Patient informed commercial loan underwriter that vistaril is not effective and is requesting if additional doses of elavil can be prescribed as it is more effective then increasing the gabapentin dose. Medications reviewed. Will d/c Vistaril 25mg Q6H and Belsomra 10mg HS. Will order Elavil 25mg @1000,1600 + Belsomra 15mg HS. Patient informed that she will not be receiving a prescription of the additional elavil doses given to her at 1000 +1600. Benefits and side effects discussed. Verbal consent given. Total face to face time:: 25 Mental Status Exam - Mental Status Exam Alert and Oriented to: Time, Place, Person Cognitive Function: Good Patient Appearance: Well Groomed Mood: Euthymic Affect: Mood Congruent Patient Behavior: Appropriate, Cooperative Speech Pattern: Clear, Appropriate Voice Loudness: Normal Thought Process: Goal Oriented Thought Disorder: Not Present Hallucinations: Denies Suicidal Ideation: Denies Homicidal Ideation: Denies Insight/Judgement: Poor Sleep: Poorly Appetite: Fair Muscle strength/Tone: Normal Gait/Station: Normal Psychiatric Treatment Plan - Problem List (1) Alcohol use disorder Current Visit: Yes (2) Sedative, hypnotic or anxiolytic dependence, uncomplicated Current Visit: Yes (3) Opioid dependence on agonist therapy Current Visit: Yes (4) Schizoaffective disorder Current Visit: Yes (5) Substance-induced sleep disorder Current Visit: Yes
[2019-02-16] MEDS: QUEtiapine FUMARATE 400 MG TABLET PO SCH (21:38)
[2019-02-16] MEDS: AMITRIPTYLINE HCL 100 MG TABLET PO SCH (21:38)
[2019-02-16] MEDS: THIAMINE HCL 100 MG TABLET (FP) PO SCH (21:39)
[2019-02-16] MEDS ORDERED: SUVOREXANT 15 MG TABLET PO PRN (22:00)
[2019-02-17] MEDS: GABAPENTIN 300 MG CAPSULE (FP) PO SCH ×3 (06:44→21:21)
[2019-02-17] MEDS: METHADONE HCL 40 MG DISPERSABLE TABLET PO SCH (06:44)
[2019-02-17] MEDS ORDERED: PT OWN MED DRAWER 7, Y5N ONE ×2 (09:06→21:24)
[2019-02-17] MEDS: NICOTINE 14 MG/24 HOURS TOPICAL PATCH TD SCH (10:20)
[2019-02-17] MEDS: AMITRIPTYLINE HCL 25 MG TABLET (FP) PO SCH ×2 (10:21→17:54)
[2019-02-17] MEDS: cloNIDine HCL 0.1 MG TABLET PO SCH ×2 (10:21→21:21)
[2019-02-17] MEDS: PRENATAL VITAMINS W/ FOLIC ACID TABLET (FP) PO SCH (10:21)
[2019-02-17] MEDS: THIAMINE HCL 100 MG TABLET (FP) PO SCH (21:21)
[2019-02-17] MEDS: METHOCARBAMOL 500 MG TABLET PO PRN (21:21)
[2019-02-17] MEDS: QUEtiapine FUMARATE 400 MG TABLET PO SCH (21:22)
[2019-02-17] MEDS: AMITRIPTYLINE HCL 100 MG TABLET PO SCH (21:24)
[2019-02-18] MEDS: METHADONE HCL 40 MG DISPERSABLE TABLET PO SCH (06:22)
[2019-02-18] MEDS: GABAPENTIN 300 MG CAPSULE (FP) PO SCH ×3 (06:22→21:29)
[2019-02-18] MEDS: NICOTINE 14 MG/24 HOURS TOPICAL PATCH TD SCH (09:57)
[2019-02-18] MEDS: PRENATAL VITAMINS W/ FOLIC ACID TABLET (FP) PO SCH (09:57)
[2019-02-18] MEDS: cloNIDine HCL 0.1 MG TABLET PO SCH ×2 (09:58→21:29)
[2019-02-18] MEDS: AMITRIPTYLINE HCL 25 MG TABLET (FP) PO SCH ×2 (09:58→17:45)
[2019-02-18 10:25] LABS: ALBUMIN 4.2 g/dl (3.4-5.0); BILIRUBIN,TOTAL 0.3 mg/dL (0.2-1); BLOOD UREA NITROGEN 12.8 mg/dL (7-18); HEMOGLOBIN 14.4 GM/dL (10.7-15.3); MCH 31.4 pg (25.7-33.7); MCHC 34.3 g/dl (32.0-36.0); MEAN CELL VOLUME 91.7 fl (80-96); MEAN PLT VOLUME 9.8 fl (7.5-11.1); PLATELET COUNT 196 K/MM3 (134-434); POTASSIUM 4.3 mmol/L (3.5-5.1); RBC 4.58 M/mm3 (3.60-5.2); RDW 13.8 % (11.6-15.6); WHITE BLOOD COUNT 6.3 K/mm3 (4.0-10.0)
[2019-02-18 14:15] LABS: URINE APPEARANCE CLEAR; URINE BILIRUBIN NEGATIVE (NEGATIVE); URINE COLOR YELLOW; URINE GLUCOSE (UA) NEGATIVE (NEGATIVE); URINE KETONE NEGATIVE (NEGATIVE); URINE LEUK ESTERASE NEGATIVE (NEGATIVE); URINE NITRITE NEGATIVE (NEGATIVE); URINE PROTEIN NEGATIVE (NEGATIVE)
[2019-02-18] MEDS: THIAMINE HCL 100 MG TABLET (FP) PO SCH (21:29)
[2019-02-18] MEDS: AMITRIPTYLINE HCL 100 MG TABLET PO SCH (21:30)
[2019-02-18] MEDS ORDERED: PT OWN MED DRAWER 7, Y5N ONE (21:30)
[2019-02-18] MEDS: QUEtiapine FUMARATE 400 MG TABLET PO SCH (21:30)
[2019-02-19] MEDS: GABAPENTIN 300 MG CAPSULE (FP) PO SCH ×3 (06:37→21:31)
[2019-02-19] MEDS: METHADONE HCL 40 MG DISPERSABLE TABLET PO SCH (06:38)
[2019-02-19] MEDS: NICOTINE POLACRILEX 2 MG GUM BUC PRN (06:55)
[2019-02-19] MEDS: cloNIDine HCL 0.1 MG TABLET PO SCH ×2 (09:52→21:31)
[2019-02-19] MEDS: AMITRIPTYLINE HCL 25 MG TABLET (FP) PO SCH ×2 (09:53→16:59)
[2019-02-19] MEDS: NICOTINE 14 MG/24 HOURS TOPICAL PATCH TD SCH (09:53)
[2019-02-19] MEDS: PRENATAL VITAMINS W/ FOLIC ACID TABLET (FP) PO SCH (09:53)
--- NOTE | 2019-02-19 12:27 | PN ---
[facility] Progress Note Note: Nurse reports pt c/o "follicular redness/scab infection midline scalp". pt is a 33 y/o female admitted to rehab for BRIAN. 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 Vital Signs - 24 hr 02/18/19 02/19/19 02/19/19 20:40 00:30 03:30 Temperature Pulse Rate 101 H Respiratory 16 16 Rate Blood Pressure 120/81 02/19/19 02/19/19 07:25 10:00 Temperature 97.9 F Pulse Rate 99 H 80 Respiratory 18 Rate Blood Pressure 118/72 138/76 Laboratory Tests 02/13/19 02/15/19 02/15/19 15:05 08:00 08:00 WBC RBC Hgb Hct MCV MCH MCHC RDW Plt Count MPV Sodium 135 L Potassium 4.2 Chloride 100 Carbon Dioxide 28 Anion Gap 8 BUN 11.3 Creatinine 1.1 Est GFR (CKD-EPI)AfAm 76.93 Est GFR (CKD-EPI)NonAf 66.38 Random Glucose 224 H Calcium 10.0 Total Bilirubin 0.3 AST 21 ALT 32 Alkaline Phosphatase 75 Total Protein 8.1 Albumin 4.1 Urine Color Urine Appearance Urine pH Ur Specific [place] Urine Protein Urine Glucose (UA) Urine Ketones Urine Blood Urine Nitrite Urine Bilirubin Urine Urobilinogen Ur Leukocyte Esterase POC Urine HCG, Qual Negative RPR Titer Nonreactive 02/15/19 02/18/19 02/18/19 08:00 07:40 07:40 WBC 8.0 6.3 RBC 4.71 4.58 Hgb 14.8 14.4 Hct 43.2 42.0 MCV 91.9 91.7 MCH 31.5 31.4 MCHC 34.3 34.3 RDW 13.6 13.8 Plt Count 242 196 MPV 9.2 D 9.8 Sodium 136 Potassium 4.3 Chloride 98 Carbon Dioxide 31 Anion Gap 6 L BUN 12.8 Creatinine 1.0 Est GFR (CKD-EPI)AfAm 86.33 Est GFR (CKD-EPI)NonAf 74.49 Random Glucose 103 Calcium 10.0 Total Bilirubin 0.3 AST 29 ALT 42 Alkaline Phosphatase 74 Total Protein 8.0 Albumin 4.2 Urine Color Urine Appearance Urine pH Ur Specific [place] Urine Protein Urine Glucose (UA) Urine Ketones Urine Blood Urine Nitrite Urine Bilirubin Urine Urobilinogen Ur Leukocyte Esterase POC Urine HCG, Qual RPR Titer 02/18/19 09:00 WBC RBC Hgb Hct MCV MCH MCHC RDW Plt Count MPV Sodium Potassium Chloride Carbon Dioxide Anion Gap BUN Creatinine Est GFR (CKD-EPI)AfAm Est GFR (CKD-EPI)NonAf Random Glucose Calcium Total Bilirubin AST ALT Alkaline Phosphatase Total Protein Albumin Urine Color Yellow Urine Appearance Clear Urine pH 7.0 Ur Specific [place] 1.011 Urine Protein Negative Urine Glucose (UA) Negative Urine Ketones Negative Urine Blood Negative Urine Nitrite Negative Urine Bilirubin Negative Urine Urobilinogen 1.0 Ur Leukocyte Esterase Negative POC Urine HCG, Qual RPR Titer Head:Normocephalic, Small area of red scratched abrasion on back of neck above hairline. A/P Head Lesion/abrasion Bacitracin ointment appy as directed. D/W pt may consider loosening braid.
[2019-02-19] MEDS: BACITRACIN 15 GM TUBE TOPICAL OINTMENT TP SCH ×2 (13:30→21:32)
[2019-02-19] MEDS: ONDANSETRON *ODT* 4 MG TABLET SL PRN (14:57)
[2019-02-19] MEDS ORDERED: PT OWN MED DRAWER 7, Y5N ONE (21:33)
[2019-02-19] MEDS: QUEtiapine FUMARATE 400 MG TABLET PO SCH (21:33)
[2019-02-19] MEDS: THIAMINE HCL 100 MG TABLET (FP) PO SCH (21:34)
[2019-02-19] MEDS: AMITRIPTYLINE HCL 100 MG TABLET PO SCH (22:03)
[2019-02-20] MEDS: METHADONE HCL 40 MG DISPERSABLE TABLET PO SCH (06:27)
[2019-02-20] MEDS: GABAPENTIN 300 MG CAPSULE (FP) PO SCH ×3 (06:28→21:37)
[2019-02-20] MEDS: PRENATAL VITAMINS W/ FOLIC ACID TABLET (FP) PO SCH (09:55)
[2019-02-20] MEDS: AMITRIPTYLINE HCL 25 MG TABLET (FP) PO SCH ×2 (09:55→17:12)
[2019-02-20] MEDS: cloNIDine HCL 0.1 MG TABLET PO SCH ×2 (09:55→21:37)
[2019-02-20] MEDS: BACITRACIN 15 GM TUBE TOPICAL OINTMENT TP SCH ×2 (09:55→21:39)
[2019-02-20] MEDS: NICOTINE 14 MG/24 HOURS TOPICAL PATCH TD SCH (09:55)
[2019-02-20] MEDS: NICOTINE POLACRILEX 2 MG GUM BUC PRN (09:56)
[2019-02-20] MEDS ORDERED: PT OWN MED DRAWER 7, Y5N ONE ×2 (19:39→21:39)
[2019-02-20] MEDS: QUEtiapine FUMARATE 400 MG TABLET PO SCH (21:37)
[2019-02-20] MEDS: THIAMINE HCL 100 MG TABLET (FP) PO SCH (21:37)
[2019-02-20] MEDS: AMITRIPTYLINE HCL 100 MG TABLET PO SCH (21:38)
[2019-02-21] MEDS: METHADONE HCL 40 MG DISPERSABLE TABLET PO SCH (06:29)
[2019-02-21] MEDS: GABAPENTIN 300 MG CAPSULE (FP) PO SCH ×3 (06:30→21:30)
[2019-02-21] MEDS: AMITRIPTYLINE HCL 25 MG TABLET (FP) PO SCH ×2 (09:39→16:45)
[2019-02-21] MEDS: PRENATAL VITAMINS W/ FOLIC ACID TABLET (FP) PO SCH (09:39)
[2019-02-21] MEDS: BACITRACIN 15 GM TUBE TOPICAL OINTMENT TP SCH ×2 (09:39→21:30)
[2019-02-21] MEDS: cloNIDine HCL 0.1 MG TABLET PO SCH ×2 (09:39→21:30)
[2019-02-21] MEDS: NICOTINE 14 MG/24 HOURS TOPICAL PATCH TD SCH (09:40)
--- NOTE | 2019-02-21 17:40 | PN ---
Psychiatric Progress Note Vital Signs: Vital Signs Period Temp Pulse Resp BP Sys/Gannon Pulse Ox Last 24 Hr 97.2 F 99-116 18-18 130-136/71-90 Date of Session: 02/21/19 Chief Complaint:: " I wanted to talk to someone." HPI: Day 9 of rehabilitative care at [address] for this 33 y/o femal addressing BRIAN issues (heroin, nicotine, alcohol, benzodiazepine) co-morbid with Schizoaffective Disorder + PTSD. Unremarkable hospital course. Patient indicates to this rewriter that " sometimes I feel sad ". She reports that " my medications are working but from time to time I like to talk to a therapist." ROS: Unremarkable. Patient is ambulatory. Cognitively intact. No specific somatic complaints. Current Medications: Active Medications Generic Name Dose Route Start Last Admin Trade Name Freq PRN Reason Stop Dose Admin Acetaminophen 650 mg 02/13/19 17:59 Tylenol - PO Q6H PRN PAIN LEVEL 4 - 6 Acetaminophen 650 mg 02/13/19 17:59 Tylenol - PO Q6H PRN FEVER Al Hydroxide/Mg Hydroxide 30 ml 02/13/19 17:59 Mylanta Oral Suspension - PO Q6H PRN DYSPEPSIA Amitriptyline HCl 100 mg 02/15/19 22:00 02/20/19 21:38 Elavil - PO 100 mg HS JOSIE Administration Amitriptyline HCl 25 mg 02/17/19 10:00 02/21/19 09:39 Elavil - PO 25 mg BID@1000,1600 JOSIE Administration Bacitracin 1 applic 02/19/19 12:30 02/21/19 09:39 Bacitracin - TP Not Given BID JOSIE Bismuth Subsalicylate 524 mg 02/13/19 17:59 Pepto-Bismol - PO Q1H PRN DIARRHEA Clonidine 0.2 mg 02/16/19 10:00 02/21/19 09:39 Catapres - PO 0.2 mg BID JOSIE Administration Gabapentin 300 mg 02/14/19 14:00 02/21/19 13:48 Neurontin - PO 300 mg TID JOSIE Administration Ibuprofen 400 mg 02/13/19 17:59 Motrin - PO Q6H PRN PAIN LEVEL 1 - 3 Magnesium Citrate 300 ml 02/13/19 17:59 Citroma - PO Q48H PRN CONSTIPATION Magnesium Hydroxide 30 ml 02/13/19 17:59 Milk Of Magnesia - PO PRN PRN CONSTIPATION Methadone HCl 120 mg 02/22/19 06:00 Dolophine - PO 02/28/19 05:59 DAILY@0600 JOSIE Nicotine 14 mg 02/13/19 19:00 02/21/19 09:40 Nicoderm Patch - TD 14 mg DAILY JOSIE Administration Nicotine Polacrilex 2 mg 02/13/19 17:59 02/20/19 09:56 Nicorette Gum - BUC 2 mg Q2H PRN Administration NICOTINE REPLACEMENT RX Ondansetron HCl 8 mg 02/14/19 23:10 02/19/19 14:57 Zofran Odt - SL 8 mg Q6H PRN Administration NAUSEA AND/OR VOMITING Multivit/Folic Acid/Iron 1 tab 02/14/19 10:00 02/21/19 09:39 Vitamins (Sjr) - PO Not Given DAILY JOSIE Quetiapine Fumarate 800 mg 02/14/19 22:00 02/20/19 21:37 Seroquel - PO 800 mg HS JOSIE Administration Tetrahydrozoline HCl 1 drop 02/15/19 10:37 02/15/19 17:29 Visine - OS 1 drop QID PRN Administration DRY EYES Thiamine HCl 100 mg 02/13/19 22:00 02/20/19 21:37 Vitamin B1 - PO 100 mg HS JOSIE Administration Medication(s) Change(s): Medications revisited. Noted seroquel, elavil, gabapentin and MMTP = 120 mg/day. Side effects/benefits of these molecules are discussed with the patient. Ms Mckee states that she has been on this regimen for years. " They really help me a lot. " No report of adverse effects. Medications were confirmed via survey of external pharmacy activity. Current Side Effect: No Lab tests ordered: No Lab tests reviewed: Yes Provider note:: Chart reviewed. Previous medical progress notes + psychiatric consult reports (Dr Byrne + MADI Siddiqui) : read and appreciated. Patient is interviewed with consulting business developer, associate director of nursing Ana Figueroa (with patient's permission). Ms Mckee reports feeling fine except for mild, transient dysphoric symptoms. No suicidal ideation, intent or plan. Future-oriented : patient is looking forward to going for long-term rehabilitation after completion of this program. Pleasant and friendly. Appears motivated for change. Good historian. Stable mental status. See MSE report. Stable hospital course. EKG recommended. Medical staff contacted (by nurse in charge). Psychiatric Treatment Plan - Problem List (1) Alcohol dependence Current Visit: Yes Comment: . (2) Opioid dependence on agonist therapy Current Visit: Yes Comment: . (3) Sedative, hypnotic or anxiolytic dependence, uncomplicated Current Visit: Yes Comment: . (4) Nicotine dependence Current Visit: Yes Qualifiers: Nicotine product type: cigarettes Substance use status: uncomplicated Qualified Code(s): F17.210 - Nicotine dependence, cigarettes, uncomplicated Comment: . (5) Substance induced mood disorder Current Visit: Yes Comment: . (6) Schizoaffective disorder Current Visit: Yes Comment: . (7) Insomnia Current Visit: Yes Comment: .
[2019-02-21] MEDS: AMITRIPTYLINE HCL 100 MG TABLET PO SCH (21:30)
[2019-02-21] MEDS: THIAMINE HCL 100 MG TABLET (FP) PO SCH (21:30)
[2019-02-21] MEDS: QUEtiapine FUMARATE 400 MG TABLET PO SCH (21:32)
[2019-02-22] MEDS: METHADONE HCL 40 MG DISPERSABLE TABLET PO SCH (06:18)
[2019-02-22] MEDS: GABAPENTIN 300 MG CAPSULE (FP) PO SCH ×3 (06:19→21:13)
[2019-02-22] MEDS ORDERED: PT OWN MED DRAWER 7, Y5N ONE (08:18)
[2019-02-22] MEDS: NICOTINE 14 MG/24 HOURS TOPICAL PATCH TD SCH (09:31)
[2019-02-22] MEDS: BACITRACIN 15 GM TUBE TOPICAL OINTMENT TP SCH ×2 (09:31→21:14)
[2019-02-22] MEDS: cloNIDine HCL 0.1 MG TABLET PO SCH ×2 (09:31→21:13)
[2019-02-22] MEDS: AMITRIPTYLINE HCL 25 MG TABLET (FP) PO SCH ×2 (09:31→16:57)
[2019-02-22] MEDS: PRENATAL VITAMINS W/ FOLIC ACID TABLET (FP) PO SCH (09:31)
[2019-02-22] MEDS: NICOTINE POLACRILEX 2 MG GUM BUC PRN ×2 (09:33→21:15)
--- NOTE | 2019-02-22 12:42 | EKG ---
Test Reason : Blood Pressure : / mmHG Vent. Rate : 090 BPM Atrial Rate : 090 BPM P-R Int : 132 ms QRS Dur : 090 ms QT Int : 396 ms P-R-T Axes : 033 017 036 degrees QTc Int : 484 ms NORMAL SINUS RHYTHM PROLONGED QT ABNORMAL ECG NO PREVIOUS ECGS AVAILABLE Confirmed by WAQAR NIXON MD ([id number]) on 02/22/2019 12:41:42 PM Referred By: Confirmed By:WAQAR NIXON MD
--- NOTE | 2019-02-22 14:36 | PREP.REFER ---
HIV PrEP/PEP - PrEP HIV Risk Assessment When was your last HIV test?: 2 months prior to admission HIV Test offered: Refused Are you concerned about any sexual encounters past 6 months?: No Have you had a STI in the last 6 months?: No Have you shared needles or other equipment?: No Are you interested in daily medication to help prevent HIV?: No Recommendation: None at this time Comment: patient states that she is a lesbian and does not have sex with men, so she is not at risk.
[2019-02-22] MEDS: THIAMINE HCL 100 MG TABLET (FP) PO SCH (21:12)
[2019-02-22] MEDS: QUEtiapine FUMARATE 400 MG TABLET PO SCH (21:14)
[2019-02-22] MEDS: AMITRIPTYLINE HCL 100 MG TABLET PO SCH (22:05)
[2019-02-23] MEDS: METHADONE HCL 40 MG DISPERSABLE TABLET PO SCH (06:33)
[2019-02-23] MEDS: GABAPENTIN 300 MG CAPSULE (FP) PO SCH ×3 (06:33→21:12)
[2019-02-23] MEDS: AMITRIPTYLINE HCL 25 MG TABLET (FP) PO SCH ×2 (09:50→17:41)
[2019-02-23] MEDS: cloNIDine HCL 0.1 MG TABLET PO SCH ×2 (09:50→21:12)
[2019-02-23] MEDS: PRENATAL VITAMINS W/ FOLIC ACID TABLET (FP) PO SCH (09:50)
[2019-02-23] MEDS: NICOTINE 14 MG/24 HOURS TOPICAL PATCH TD SCH (09:51)
[2019-02-23] MEDS: BACITRACIN 15 GM TUBE TOPICAL OINTMENT TP SCH ×2 (09:51→21:14)
[2019-02-23] MEDS ORDERED: COLLOIDAL OATMEAL 1 BAR EACH TP PRN (10:43)
[2019-02-23] MEDS ORDERED: HYDROCORTISONE 1% TOPICAL CREAM 30 GM TUBE TP PRN (10:43)
--- NOTE | 2019-02-23 10:51 | PN ---
S Progress Note Note: Pt c/o "hot flashes", and itchy skin/rash around lower abdomen. Reports hx of dandruff and wants dandruff shampoo. Vital Signs - 24 hr 02/22/19 02/23/19 02/23/19 21:49 00:30 03:30 Temperature Pulse Rate 96 H Respiratory 17 18 Rate Blood Pressure 136/81 02/23/19 07:26 Temperature 97.4 F L Pulse Rate 99 H Respiratory 18 Rate Blood Pressure 118/83 Skin: red clothing(PJ) sharma and a few papular rashes around lower abdomen at belt level and back of neck. Sweaty and fanning herself with her hand. A/P Dandruff Itchy Dermatitis Selsun shampoo 2.5% apply as directed x 7 days Hydrocotisone cream 1% qid prn for itchy rash x7 days Increase po fluids
[2019-02-23] MEDS: SELENIUM SULFIDE 2.5% LOTION 4 OZ. TP SCH (14:30)
[2019-02-23] MEDS ORDERED: PT OWN MED DRAWER 7, Y5N ONE ×2 (21:12→21:14)
[2019-02-23] MEDS: AMITRIPTYLINE HCL 100 MG TABLET PO SCH (21:12)
[2019-02-23] MEDS: THIAMINE HCL 100 MG TABLET (FP) PO SCH (21:12)
[2019-02-23] MEDS: QUEtiapine FUMARATE 400 MG TABLET PO SCH (21:14)
[2019-02-24] MEDS: METHADONE HCL 40 MG DISPERSABLE TABLET PO SCH (06:30)
[2019-02-24] MEDS: GABAPENTIN 300 MG CAPSULE (FP) PO SCH ×3 (06:31→21:17)
[2019-02-24] MEDS ORDERED: PT OWN MED DRAWER 7, Y5N ONE ×2 (08:50→19:42)
[2019-02-24] MEDS: BACITRACIN 15 GM TUBE TOPICAL OINTMENT TP SCH ×2 (10:02→21:18)
[2019-02-24] MEDS: AMITRIPTYLINE HCL 25 MG TABLET (FP) PO SCH ×2 (10:02→16:39)
[2019-02-24] MEDS: NICOTINE 14 MG/24 HOURS TOPICAL PATCH TD SCH (10:02)
[2019-02-24] MEDS: PRENATAL VITAMINS W/ FOLIC ACID TABLET (FP) PO SCH (10:02)
[2019-02-24] MEDS: cloNIDine HCL 0.1 MG TABLET PO SCH ×2 (10:02→21:17)
[2019-02-24] MEDS: NICOTINE POLACRILEX 2 MG GUM BUC PRN (10:04)
[2019-02-24] MEDS: SELENIUM SULFIDE 2.5% LOTION 4 OZ. TP SCH (10:05)
[2019-02-24] MEDS: QUEtiapine FUMARATE 400 MG TABLET PO SCH (21:17)
[2019-02-24] MEDS: AMITRIPTYLINE HCL 100 MG TABLET PO SCH (21:17)
[2019-02-24] MEDS: THIAMINE HCL 100 MG TABLET (FP) PO SCH (21:17)
[2019-02-25] MEDS: METHADONE HCL 40 MG DISPERSABLE TABLET PO SCH (06:22)
[2019-02-25] MEDS: GABAPENTIN 300 MG CAPSULE (FP) PO SCH ×3 (06:23→21:31)
[2019-02-25] MEDS ORDERED: PT OWN MED DRAWER 7, Y5N ONE ×2 (08:14→15:57)
[2019-02-25] MEDS: cloNIDine HCL 0.1 MG TABLET PO SCH ×2 (09:50→21:31)
[2019-02-25] MEDS: AMITRIPTYLINE HCL 25 MG TABLET (FP) PO SCH ×2 (09:50→16:43)
[2019-02-25] MEDS: BACITRACIN 15 GM TUBE TOPICAL OINTMENT TP SCH ×2 (09:51→21:32)
[2019-02-25] MEDS: NICOTINE 14 MG/24 HOURS TOPICAL PATCH TD SCH (09:51)
[2019-02-25] MEDS: PRENATAL VITAMINS W/ FOLIC ACID TABLET (FP) PO SCH (09:52)
[2019-02-25] MEDS: SELENIUM SULFIDE 2.5% LOTION 4 OZ. TP SCH (09:52)
[2019-02-25] MEDS: NICOTINE POLACRILEX 2 MG GUM BUC PRN ×2 (09:52→21:33)
[2019-02-25] MEDS: THIAMINE HCL 100 MG TABLET (FP) PO SCH (21:30)
[2019-02-25] MEDS: QUEtiapine FUMARATE 400 MG TABLET PO SCH (21:31)
[2019-02-25] MEDS: AMITRIPTYLINE HCL 100 MG TABLET PO SCH (21:32)
[2019-02-26] MEDS: METHADONE HCL 40 MG DISPERSABLE TABLET PO SCH (06:30)
[2019-02-26] MEDS: GABAPENTIN 300 MG CAPSULE (FP) PO SCH ×3 (06:30→21:32)
[2019-02-26] MEDS ORDERED: PT OWN MED DRAWER 7, Y5N ONE ×2 (08:50→21:34)
[2019-02-26] MEDS: cloNIDine HCL 0.1 MG TABLET PO SCH ×2 (09:57→21:32)
[2019-02-26] MEDS: BACITRACIN 15 GM TUBE TOPICAL OINTMENT TP SCH ×2 (09:57→21:35)
[2019-02-26] MEDS: SELENIUM SULFIDE 2.5% LOTION 4 OZ. TP SCH (09:57)
[2019-02-26] MEDS: PRENATAL VITAMINS W/ FOLIC ACID TABLET (FP) PO SCH (09:57)
[2019-02-26] MEDS: AMITRIPTYLINE HCL 25 MG TABLET (FP) PO SCH ×2 (09:58→16:40)
[2019-02-26] MEDS: NICOTINE 14 MG/24 HOURS TOPICAL PATCH TD SCH (09:58)
[2019-02-26] MEDS: NICOTINE POLACRILEX 2 MG GUM BUC PRN (09:59)
[2019-02-26] MEDS: THIAMINE HCL 100 MG TABLET (FP) PO SCH (21:31)
[2019-02-26] MEDS: QUEtiapine FUMARATE 400 MG TABLET PO SCH (21:34)
[2019-02-26] MEDS: AMITRIPTYLINE HCL 100 MG TABLET PO SCH (21:35)
[2019-02-27] MEDS: GABAPENTIN 300 MG CAPSULE (FP) PO SCH ×3 (06:30→21:31)
[2019-02-27] MEDS: METHADONE HCL 40 MG DISPERSABLE TABLET PO SCH (06:30)
[2019-02-27] MEDS ORDERED: PT OWN MED DRAWER 7, Y5N ONE (08:56)
[2019-02-27] MEDS: BACITRACIN 15 GM TUBE TOPICAL OINTMENT TP SCH ×2 (09:37→21:32)
[2019-02-27] MEDS: AMITRIPTYLINE HCL 25 MG TABLET (FP) PO SCH ×2 (09:38→17:22)
[2019-02-27] MEDS: NICOTINE 14 MG/24 HOURS TOPICAL PATCH TD SCH (09:38)
[2019-02-27] MEDS: cloNIDine HCL 0.1 MG TABLET PO SCH ×2 (09:38→21:30)
[2019-02-27] MEDS: PRENATAL VITAMINS W/ FOLIC ACID TABLET (FP) PO SCH (09:39)
[2019-02-27] MEDS: SELENIUM SULFIDE 2.5% LOTION 4 OZ. TP SCH (09:39)
[2019-02-27] MEDS: NICOTINE POLACRILEX 2 MG GUM BUC PRN (09:40)
[2019-02-27] MEDS: metroNIDAZOLE 250 MG TABLET PO SCH ×2 (13:00→21:31)
[2019-02-27] MEDS: MAG HYDROX/AL HYDROX/SIMETH 30 ML UNIT-DOSE CUP PO PRN (17:22)
[2019-02-27] MEDS: THIAMINE HCL 100 MG TABLET (FP) PO SCH (21:30)
[2019-02-27] MEDS: AMITRIPTYLINE HCL 100 MG TABLET PO SCH (21:32)
[2019-02-27] MEDS: QUEtiapine FUMARATE 400 MG TABLET PO SCH (21:56)
[2019-02-28] MEDS: GABAPENTIN 300 MG CAPSULE (FP) PO SCH ×3 (06:20→21:23)
[2019-02-28] MEDS: METHADONE HCL 40 MG DISPERSABLE TABLET PO SCH (06:21)
[2019-02-28] MEDS: AMITRIPTYLINE HCL 25 MG TABLET (FP) PO SCH ×2 (10:02→17:07)
[2019-02-28] MEDS: cloNIDine HCL 0.1 MG TABLET PO SCH ×2 (10:02→21:23)
[2019-02-28] MEDS: metroNIDAZOLE 250 MG TABLET PO SCH ×2 (10:02→21:23)
[2019-02-28] MEDS: NICOTINE 14 MG/24 HOURS TOPICAL PATCH TD SCH (10:03)
[2019-02-28] MEDS: NICOTINE POLACRILEX 2 MG GUM BUC PRN (10:03)
[2019-02-28] MEDS: PRENATAL VITAMINS W/ FOLIC ACID TABLET (FP) PO SCH (10:04)
[2019-02-28] MEDS: BACITRACIN 15 GM TUBE TOPICAL OINTMENT TP SCH ×2 (10:04→21:25)
[2019-02-28] MEDS: SELENIUM SULFIDE 2.5% LOTION 4 OZ. TP SCH (10:04)
[2019-02-28] MEDS: QUEtiapine FUMARATE 400 MG TABLET PO SCH (21:23)
[2019-02-28] MEDS: AMITRIPTYLINE HCL 100 MG TABLET PO SCH (21:23)
[2019-02-28] MEDS: THIAMINE HCL 100 MG TABLET (FP) PO SCH (21:24)
[2019-03-01] MEDS: METHADONE HCL 40 MG DISPERSABLE TABLET PO SCH (06:37)
[2019-03-01] MEDS: GABAPENTIN 300 MG CAPSULE (FP) PO SCH ×3 (06:37→21:14)
[2019-03-01] MEDS ORDERED: PT OWN MED DRAWER 7, Y5N ONE ×2 (08:31→20:01)
[2019-03-01] MEDS: cloNIDine HCL 0.1 MG TABLET PO SCH ×2 (09:34→21:14)
[2019-03-01] MEDS: BACITRACIN 15 GM TUBE TOPICAL OINTMENT TP SCH ×2 (09:34→21:15)
[2019-03-01] MEDS: PRENATAL VITAMINS W/ FOLIC ACID TABLET (FP) PO SCH (09:35)
[2019-03-01] MEDS: AMITRIPTYLINE HCL 25 MG TABLET (FP) PO SCH ×2 (09:35→16:55)
[2019-03-01] MEDS: NICOTINE 14 MG/24 HOURS TOPICAL PATCH TD SCH (09:35)
[2019-03-01] MEDS: metroNIDAZOLE 250 MG TABLET PO SCH ×2 (09:35→21:14)
[2019-03-01] MEDS: SELENIUM SULFIDE 2.5% LOTION 4 OZ. TP SCH (09:37)
[2019-03-01] MEDS: NICOTINE POLACRILEX 2 MG GUM BUC PRN ×2 (09:37→21:15)
[2019-03-01] MEDS: QUEtiapine FUMARATE 400 MG TABLET PO SCH (21:15)
[2019-03-01] MEDS: AMITRIPTYLINE HCL 100 MG TABLET PO SCH (21:15)
[2019-03-01] MEDS: THIAMINE HCL 100 MG TABLET (FP) PO SCH (21:15)
[2019-03-02] MEDS: METHADONE HCL 40 MG DISPERSABLE TABLET PO SCH (06:27)
[2019-03-02] MEDS: GABAPENTIN 300 MG CAPSULE (FP) PO SCH ×3 (06:28→21:17)
[2019-03-02] MEDS ORDERED: PT OWN MED DRAWER 7, Y5N ONE (08:32)
[2019-03-02] MEDS: BACITRACIN 15 GM TUBE TOPICAL OINTMENT TP SCH ×2 (09:56→21:18)
[2019-03-02] MEDS: cloNIDine HCL 0.1 MG TABLET PO SCH ×2 (09:57→21:17)
[2019-03-02] MEDS: PRENATAL VITAMINS W/ FOLIC ACID TABLET (FP) PO SCH (09:57)
[2019-03-02] MEDS: AMITRIPTYLINE HCL 25 MG TABLET (FP) PO SCH ×2 (09:57→17:38)
[2019-03-02] MEDS: metroNIDAZOLE 250 MG TABLET PO SCH ×2 (09:57→21:17)
[2019-03-02] MEDS: SELENIUM SULFIDE 2.5% LOTION 4 OZ. TP SCH (09:58)
[2019-03-02] MEDS: NICOTINE 14 MG/24 HOURS TOPICAL PATCH TD SCH (09:58)
[2019-03-02] MEDS: NICOTINE POLACRILEX 2 MG GUM BUC PRN (09:59)
[2019-03-02] MEDS: THIAMINE HCL 100 MG TABLET (FP) PO SCH (21:17)
[2019-03-02] MEDS: AMITRIPTYLINE HCL 100 MG TABLET PO SCH (21:18)
[2019-03-02] MEDS: QUEtiapine FUMARATE 400 MG TABLET PO SCH (21:19)
[2019-03-03] MEDS: GABAPENTIN 300 MG CAPSULE (FP) PO SCH ×3 (06:43→21:33)
[2019-03-03] MEDS: METHADONE HCL 40 MG DISPERSABLE TABLET PO SCH (06:43)
[2019-03-03] MEDS: metroNIDAZOLE 250 MG TABLET PO SCH ×2 (09:59→21:33)
[2019-03-03] MEDS: AMITRIPTYLINE HCL 25 MG TABLET (FP) PO SCH ×2 (10:00→16:21)
[2019-03-03] MEDS: NICOTINE 14 MG/24 HOURS TOPICAL PATCH TD SCH (10:00)
[2019-03-03] MEDS: cloNIDine HCL 0.1 MG TABLET PO SCH ×2 (10:00→21:33)
[2019-03-03] MEDS: BACITRACIN 15 GM TUBE TOPICAL OINTMENT TP SCH ×2 (10:00→21:35)
[2019-03-03] MEDS: NICOTINE POLACRILEX 2 MG GUM BUC PRN (10:01)
[2019-03-03] MEDS: PRENATAL VITAMINS W/ FOLIC ACID TABLET (FP) PO SCH (10:02)
[2019-03-03] MEDS: THIAMINE HCL 100 MG TABLET (FP) PO SCH (21:32)
[2019-03-03] MEDS ORDERED: PT OWN MED DRAWER 7, Y5N ONE (21:34)
[2019-03-03] MEDS: AMITRIPTYLINE HCL 100 MG TABLET PO SCH (21:35)
[2019-03-03] MEDS: QUEtiapine FUMARATE 400 MG TABLET PO SCH (21:36)
[2019-03-04] MEDS: METHADONE HCL 40 MG DISPERSABLE TABLET PO SCH (06:42)
[2019-03-04] MEDS: GABAPENTIN 300 MG CAPSULE (FP) PO SCH ×3 (06:42→21:47)
[2019-03-04] MEDS: BACITRACIN 15 GM TUBE TOPICAL OINTMENT TP SCH ×2 (10:00→21:49)
[2019-03-04] MEDS: NICOTINE POLACRILEX 2 MG GUM BUC PRN (10:01)
[2019-03-04] MEDS: metroNIDAZOLE 250 MG TABLET PO SCH ×2 (10:01→21:47)
[2019-03-04] MEDS: NICOTINE 14 MG/24 HOURS TOPICAL PATCH TD SCH (10:01)
[2019-03-04] MEDS: cloNIDine HCL 0.1 MG TABLET PO SCH ×2 (10:01→21:47)
[2019-03-04] MEDS: AMITRIPTYLINE HCL 25 MG TABLET (FP) PO SCH ×2 (10:01→17:34)
[2019-03-04] MEDS: PRENATAL VITAMINS W/ FOLIC ACID TABLET (FP) PO SCH (10:03)
[2019-03-04] MEDS ORDERED: PT OWN MED DRAWER 7, Y5N ONE (17:31)
[2019-03-04] MEDS: THIAMINE HCL 100 MG TABLET (FP) PO SCH (21:47)
[2019-03-04] MEDS: AMITRIPTYLINE HCL 100 MG TABLET PO SCH (21:49)
[2019-03-04] MEDS: QUEtiapine FUMARATE 400 MG TABLET PO SCH (21:50)
[2019-03-05] MEDS ORDERED: METHADONE HCL 10 MG TABLET PO SCH (06:00)
[2019-03-05] MEDS: METHADONE HCL 40 MG DISPERSABLE TABLET PO SCH (06:17)
[2019-03-05] MEDS: GABAPENTIN 300 MG CAPSULE (FP) PO SCH ×3 (06:18→21:16)
[2019-03-05] MEDS ORDERED: PT OWN MED DRAWER 7, Y5N ONE ×2 (08:30→20:08)
[2019-03-05] MEDS: AMITRIPTYLINE HCL 25 MG TABLET (FP) PO SCH ×2 (10:01→15:49)
[2019-03-05] MEDS: cloNIDine HCL 0.1 MG TABLET PO SCH ×2 (10:01→21:16)
[2019-03-05] MEDS: metroNIDAZOLE 250 MG TABLET PO SCH ×2 (10:01→21:16)
[2019-03-05] MEDS: NICOTINE 14 MG/24 HOURS TOPICAL PATCH TD SCH (10:01)
[2019-03-05] MEDS: BACITRACIN 15 GM TUBE TOPICAL OINTMENT TP SCH ×2 (10:03→21:18)
[2019-03-05] MEDS: NICOTINE POLACRILEX 2 MG GUM BUC PRN (10:03)
[2019-03-05] MEDS: PRENATAL VITAMINS W/ FOLIC ACID TABLET (FP) PO SCH (10:03)
[2019-03-05] MEDS ORDERED: P-EPHED 60MG/TRIPROLIDI 2.5MG TABLET PO PRN (13:32)
[2019-03-05] MEDS: MAG HYDROX/AL HYDROX/SIMETH 30 ML UNIT-DOSE CUP PO PRN (16:58)
[2019-03-05] MEDS: QUEtiapine FUMARATE 400 MG TABLET PO SCH (21:16)
[2019-03-05] MEDS: AMITRIPTYLINE HCL 100 MG TABLET PO SCH (21:17)
[2019-03-05] MEDS: THIAMINE HCL 100 MG TABLET (FP) PO SCH (21:17)
[2019-03-06] MEDS: METHADONE HCL 40 MG DISPERSABLE TABLET PO SCH (06:25)
[2019-03-06] MEDS: GABAPENTIN 300 MG CAPSULE (FP) PO SCH ×3 (06:25→21:28)
[2019-03-06] MEDS: cloNIDine HCL 0.1 MG TABLET PO SCH ×2 (10:19→21:29)
[2019-03-06] MEDS: NICOTINE 14 MG/24 HOURS TOPICAL PATCH TD SCH (10:19)
[2019-03-06] MEDS: metroNIDAZOLE 250 MG TABLET PO SCH (10:19)
[2019-03-06] MEDS: PRENATAL VITAMINS W/ FOLIC ACID TABLET (FP) PO SCH (10:19)
[2019-03-06] MEDS: NICOTINE POLACRILEX 2 MG GUM BUC PRN (10:20)
[2019-03-06] MEDS: AMITRIPTYLINE HCL 25 MG TABLET (FP) PO SCH ×2 (10:20→17:26)
[2019-03-06] MEDS: BACITRACIN 15 GM TUBE TOPICAL OINTMENT TP SCH ×2 (10:21→21:30)
[2019-03-06] MEDS ORDERED: PT OWN MED DRAWER 7, Y5N ONE (18:46)
[2019-03-06] MEDS: THIAMINE HCL 100 MG TABLET (FP) PO SCH (21:28)
[2019-03-06] MEDS: QUEtiapine FUMARATE 400 MG TABLET PO SCH (21:29)
[2019-03-06] MEDS: AMITRIPTYLINE HCL 100 MG TABLET PO SCH (21:29)
[2019-03-07] MEDS: METHADONE HCL 40 MG DISPERSABLE TABLET PO SCH (06:32)
[2019-03-07] MEDS: GABAPENTIN 300 MG CAPSULE (FP) PO SCH ×3 (06:33→21:12)
[2019-03-07] MEDS: NICOTINE 14 MG/24 HOURS TOPICAL PATCH TD SCH (10:01)
[2019-03-07] MEDS: PRENATAL VITAMINS W/ FOLIC ACID TABLET (FP) PO SCH (10:02)
[2019-03-07] MEDS: AMITRIPTYLINE HCL 25 MG TABLET (FP) PO SCH ×2 (10:02→15:50)
[2019-03-07] MEDS: BACITRACIN 15 GM TUBE TOPICAL OINTMENT TP SCH ×2 (10:02→21:55)
[2019-03-07] MEDS: cloNIDine HCL 0.1 MG TABLET PO SCH ×2 (10:02→21:14)
[2019-03-07] MEDS: QUEtiapine FUMARATE 400 MG TABLET PO SCH (21:16)
[2019-03-07] MEDS: AMITRIPTYLINE HCL 100 MG TABLET PO SCH (21:16)
[2019-03-07] MEDS: NICOTINE POLACRILEX 2 MG GUM BUC PRN (21:18)
[2019-03-07] MEDS: THIAMINE HCL 100 MG TABLET (FP) PO SCH (21:56)
[2019-03-08] MEDS: METHADONE HCL 40 MG DISPERSABLE TABLET PO SCH (06:37)
[2019-03-08] MEDS: GABAPENTIN 300 MG CAPSULE (FP) PO SCH ×3 (06:38→21:26)
[2019-03-08] MEDS: PRENATAL VITAMINS W/ FOLIC ACID TABLET (FP) PO SCH (10:03)
[2019-03-08] MEDS: cloNIDine HCL 0.1 MG TABLET PO SCH ×2 (10:03→21:26)
[2019-03-08] MEDS: NICOTINE 14 MG/24 HOURS TOPICAL PATCH TD SCH (10:03)
[2019-03-08] MEDS: BACITRACIN 15 GM TUBE TOPICAL OINTMENT TP SCH ×2 (10:03→21:29)
[2019-03-08] MEDS: AMITRIPTYLINE HCL 25 MG TABLET (FP) PO SCH ×2 (10:03→16:54)
[2019-03-08] MEDS: NICOTINE POLACRILEX 2 MG GUM BUC PRN ×2 (10:05→16:55)
[2019-03-08] MEDS ORDERED: PT OWN MED DRAWER 7, Y5N ONE ×2 (20:24→21:29)
[2019-03-08] MEDS: THIAMINE HCL 100 MG TABLET (FP) PO SCH (21:26)
[2019-03-08] MEDS: QUEtiapine FUMARATE 400 MG TABLET PO SCH (21:27)
[2019-03-08] MEDS: AMITRIPTYLINE HCL 100 MG TABLET PO SCH (21:27)
[2019-03-09] MEDS: METHADONE HCL 40 MG DISPERSABLE TABLET PO SCH (06:00)
[2019-03-09] MEDS: GABAPENTIN 300 MG CAPSULE (FP) PO SCH ×3 (06:00→21:16)
[2019-03-09] MEDS ORDERED: PT OWN MED DRAWER 7, Y5N ONE (08:59)
[2019-03-09] MEDS: NICOTINE POLACRILEX 2 MG GUM BUC PRN ×2 (09:38→21:18)
[2019-03-09] MEDS: NICOTINE 14 MG/24 HOURS TOPICAL PATCH TD SCH (09:38)
[2019-03-09] MEDS: AMITRIPTYLINE HCL 25 MG TABLET (FP) PO SCH ×2 (09:38→16:58)
[2019-03-09] MEDS: PRENATAL VITAMINS W/ FOLIC ACID TABLET (FP) PO SCH (09:38)
[2019-03-09] MEDS: BACITRACIN 15 GM TUBE TOPICAL OINTMENT TP SCH ×2 (09:39→21:16)
[2019-03-09] MEDS: cloNIDine HCL 0.1 MG TABLET PO SCH ×2 (09:39→21:16)
[2019-03-09] MEDS: AMITRIPTYLINE HCL 100 MG TABLET PO SCH (21:16)
[2019-03-09] MEDS: THIAMINE HCL 100 MG TABLET (FP) PO SCH (21:17)
[2019-03-09] MEDS: QUEtiapine FUMARATE 400 MG TABLET PO SCH (21:17)
[2019-03-10] MEDS: METHADONE HCL 40 MG DISPERSABLE TABLET PO SCH (06:44)
[2019-03-10] MEDS: GABAPENTIN 300 MG CAPSULE (FP) PO SCH ×3 (06:45→21:08)
[2019-03-10] MEDS: ONDANSETRON *ODT* 4 MG TABLET SL PRN (07:23)
[2019-03-10] MEDS ORDERED: PT OWN MED DRAWER 7, Y5N ONE (08:38)
[2019-03-10] MEDS: cloNIDine HCL 0.1 MG TABLET PO SCH ×2 (09:42→21:08)
[2019-03-10] MEDS: AMITRIPTYLINE HCL 25 MG TABLET (FP) PO SCH ×2 (09:42→16:56)
[2019-03-10] MEDS: NICOTINE 14 MG/24 HOURS TOPICAL PATCH TD SCH (09:42)
[2019-03-10] MEDS: PRENATAL VITAMINS W/ FOLIC ACID TABLET (FP) PO SCH (09:44)
[2019-03-10] MEDS: BACITRACIN 15 GM TUBE TOPICAL OINTMENT TP SCH ×2 (09:44→21:10)
[2019-03-10] MEDS: NICOTINE POLACRILEX 2 MG GUM BUC PRN (09:44)
[2019-03-10] MEDS: QUEtiapine FUMARATE 400 MG TABLET PO SCH (21:08)
[2019-03-10] MEDS: AMITRIPTYLINE HCL 100 MG TABLET PO SCH (21:09)
[2019-03-10] MEDS: THIAMINE HCL 100 MG TABLET (FP) PO SCH (21:09)
[2019-03-11] MEDS: GABAPENTIN 300 MG CAPSULE (FP) PO SCH ×3 (06:41→21:54)
[2019-03-11] MEDS: METHADONE HCL 40 MG DISPERSABLE TABLET PO SCH (06:41)
[2019-03-11] MEDS ORDERED: PT OWN MED DRAWER 7, Y5N ONE ×2 (08:32→20:08)
[2019-03-11] MEDS: cloNIDine HCL 0.1 MG TABLET PO SCH ×2 (09:47→21:54)
[2019-03-11] MEDS: NICOTINE 14 MG/24 HOURS TOPICAL PATCH TD SCH (09:48)
[2019-03-11] MEDS: BACITRACIN 15 GM TUBE TOPICAL OINTMENT TP SCH ×2 (09:49→21:54)
[2019-03-11] MEDS: AMITRIPTYLINE HCL 25 MG TABLET (FP) PO SCH ×2 (09:49→16:03)
[2019-03-11] MEDS: NICOTINE POLACRILEX 2 MG GUM BUC PRN (09:50)
[2019-03-11] MEDS: PRENATAL VITAMINS W/ FOLIC ACID TABLET (FP) PO SCH (09:50)
[2019-03-11] MEDS: AMITRIPTYLINE HCL 100 MG TABLET PO SCH (21:54)
[2019-03-11] MEDS: THIAMINE HCL 100 MG TABLET (FP) PO SCH (21:54)
[2019-03-11] MEDS: QUEtiapine FUMARATE 400 MG TABLET PO SCH (21:54)
[2019-03-11] MEDS: MAG HYDROX/AL HYDROX/SIMETH 30 ML UNIT-DOSE CUP PO PRN (23:02)
[2019-03-12] MEDS: METHADONE HCL 40 MG DISPERSABLE TABLET PO SCH (06:41)
[2019-03-12] MEDS: GABAPENTIN 300 MG CAPSULE (FP) PO SCH ×3 (06:41→21:06)
[2019-03-12] MEDS: NICOTINE 14 MG/24 HOURS TOPICAL PATCH TD SCH (10:01)
[2019-03-12] MEDS: cloNIDine HCL 0.1 MG TABLET PO SCH ×2 (10:01→21:06)
[2019-03-12] MEDS: NICOTINE POLACRILEX 2 MG GUM BUC PRN (10:01)
[2019-03-12] MEDS: AMITRIPTYLINE HCL 25 MG TABLET (FP) PO SCH ×2 (10:01→16:02)
[2019-03-12] MEDS: PRENATAL VITAMINS W/ FOLIC ACID TABLET (FP) PO SCH (10:01)
[2019-03-12] MEDS ORDERED: PT OWN MED DRAWER 7, Y5N ONE ×3 (10:02→21:08)
[2019-03-12] MEDS: BACITRACIN 15 GM TUBE TOPICAL OINTMENT TP SCH ×2 (10:03→21:06)
[2019-03-12] MEDS: QUEtiapine FUMARATE 400 MG TABLET PO SCH (21:06)
[2019-03-12] MEDS: AMITRIPTYLINE HCL 100 MG TABLET PO SCH (21:06)
[2019-03-12] MEDS: THIAMINE HCL 100 MG TABLET (FP) PO SCH (21:06)
[2019-03-13] MEDS: GABAPENTIN 300 MG CAPSULE (FP) PO SCH ×3 (06:39→21:52)
[2019-03-13] MEDS: METHADONE HCL 40 MG DISPERSABLE TABLET PO SCH (06:39)
[2019-03-13] MEDS ORDERED: PT OWN MED DRAWER 7, Y5N ONE (08:21)
[2019-03-13] MEDS: NICOTINE POLACRILEX 2 MG GUM BUC PRN (09:56)
[2019-03-13] MEDS: cloNIDine HCL 0.1 MG TABLET PO SCH ×2 (09:56→21:52)
[2019-03-13] MEDS: AMITRIPTYLINE HCL 25 MG TABLET (FP) PO SCH ×2 (09:56→15:30)
[2019-03-13] MEDS: PRENATAL VITAMINS W/ FOLIC ACID TABLET (FP) PO SCH (09:56)
[2019-03-13] MEDS: BACITRACIN 15 GM TUBE TOPICAL OINTMENT TP SCH ×2 (09:56→21:53)
[2019-03-13] MEDS: NICOTINE 14 MG/24 HOURS TOPICAL PATCH TD SCH (09:56)
--- NOTE | 2019-03-13 12:09 | DS ---
[facility] Rehab Discharge Summary - [facility] Rehab Discharge Summary Admission Date: 02/13/19 Discharge Date: 03/14/19 - History Additional Comments: Pt is a 33 y/o female with a hx of BRIAN admitted to rehab and scheduled to discharge on 03/14/19. Pt has a primary care provider Dr. Blake Yanes for medical management. Pertinent Past History: HTN Hep C Migraines Bipolar Disorder - Discharge Physical Exam Vital Signs: Vital Signs Temperature 97.6 F 03/13/19 07:18 Pulse Rate 109 H 03/13/19 09:17 Respiratory Rate 18 03/13/19 07:18 Blood Pressure 119/72 03/13/19 09:17 O2 Sat by Pulse Oximetry (%) Alert o x 3 nad oob ambulating with steady gait cardiac:s1 s2,rrr lungs:cta,gomez. abdomen:soft,+bs,nt,nd extremities/skin:no edema,full ROM/weight bearing;skin intact Pertinent Admission Physical Exam Findings: Laboratory Tests 02/13/19 02/15/19 02/15/19 15:05 08:00 08:00 WBC RBC Hgb Hct MCV MCH MCHC RDW Plt Count MPV Sodium 135 L Potassium 4.2 Chloride 100 Carbon Dioxide 28 Anion Gap 8 BUN 11.3 Creatinine 1.1 Est GFR (CKD-EPI)AfAm 76.93 Est GFR (CKD-EPI)NonAf 66.38 Random Glucose 224 H Calcium 10.0 Total Bilirubin 0.3 AST 21 ALT 32 Alkaline Phosphatase 75 Total Protein 8.1 Albumin 4.1 Urine Color Urine Appearance Urine pH Ur Specific [place] Urine Protein Urine Glucose (UA) Urine Ketones Urine Blood Urine Nitrite Urine Bilirubin Urine Urobilinogen Ur Leukocyte Esterase POC Urine HCG, Qual Negative Amitriptyline Nortriptyline RPR Titer Nonreactive 02/15/19 02/18/19 02/18/19 08:00 07:40 07:40 WBC 8.0 6.3 RBC 4.71 4.58 Hgb 14.8 14.4 Hct 43.2 42.0 MCV 91.9 91.7 MCH 31.5 31.4 MCHC 34.3 34.3 RDW 13.6 13.8 Plt Count 242 196 MPV 9.2 D 9.8 Sodium 136 Potassium 4.3 Chloride 98 Carbon Dioxide 31 Anion Gap 6 L BUN 12.8 Creatinine 1.0 Est GFR (CKD-EPI)AfAm 86.33 Est GFR (CKD-EPI)NonAf 74.49 Random Glucose 103 Calcium 10.0 Total Bilirubin 0.3 AST 29 ALT 42 Alkaline Phosphatase 74 Total Protein 8.0 Albumin 4.2 Urine Color Urine Appearance Urine pH Ur Specific [place] Urine Protein Urine Glucose (UA) Urine Ketones Urine Blood Urine Nitrite Urine Bilirubin Urine Urobilinogen Ur Leukocyte Esterase POC Urine HCG, Qual Amitriptyline Nortriptyline RPR Titer 02/18/19 02/24/19 09:00 09:45 WBC RBC Hgb Hct MCV MCH MCHC RDW Plt Count MPV Sodium Potassium Chloride Carbon Dioxide Anion Gap BUN Creatinine Est GFR (CKD-EPI)AfAm Est GFR (CKD-EPI)NonAf Random Glucose Calcium Total Bilirubin AST ALT Alkaline Phosphatase Total Protein Albumin Urine Color Yellow Urine Appearance Clear Urine pH 7.0 Ur Specific [place] 1.011 Urine Protein Negative Urine Glucose (UA) Negative Urine Ketones Negative Urine Blood Negative Urine Nitrite Negative Urine Bilirubin Negative Urine Urobilinogen 1.0 Ur Leukocyte Esterase Negative POC Urine HCG, Qual Amitriptyline 58 Nortriptyline 146 RPR Titer - Treatment Discharge Condition: Discharge condition good Hospital Course: rehabilitated safely cd aftercare referral accepted - Medication Discharge Medications: Ambulatory Orders Methadone [Dolophine -] 120 mg PO DAILY 01/27/17 cloNIDine HCL [Catapres -] 0.2 mg PO BID 01/27/17 Clonidine HCl 0.3 mg PO BID 02/13/19 Gabapentin 300 mg PO QID 02/13/19 Amitriptyline HCl [Elavil -] 25 mg PO BID@1000,1600 #60 tablet 03/13/19 Amitriptyline HCl [Elavil -] 100 mg PO HS #30 tablet 03/13/19 Gabapentin [Neurontin -] 300 mg PO TID #90 capsule 03/13/19 Quetiapine Fumarate [Seroquel -] 800 mg PO HS #60 tablet 03/13/19 - Medication-Assisted Treatment (MAT) Medication-Assisted Treatment (MAT): No - Discharge Instructions Diet, activity, other medical instructions: Diet:aliyah Activity:oob ad joanna Other medical instructions:follow up with CD aftercare referral as recommended and scheduled. Follow up with primary care provider within 1 week after discharge. - Diagnosis (1) Alcohol dependence Current Visit: Yes Status: Chronic Qualifiers: Substance use status: uncomplicated Qualified Code(s): F10.20 - Alcohol dependence, uncomplicated (2) Nicotine dependence Current Visit: Yes Status: Chronic Qualifiers: Nicotine product type: cigarettes Substance use status: uncomplicated Qualified Code(s): F17.210 - Nicotine dependence, cigarettes, uncomplicated (3) Chronic pain of left ankle Current Visit: Yes Status: Chronic (4) HTN (hypertension) Current Visit: Yes Status: Chronic Qualifiers: Hypertension type: essential hypertension Qualified Code(s): I10 - Essential (primary) hypertension (5) Hepatitis-C Current Visit: Yes Status: Chronic Qualifiers: Viral hepatitis chronicity: unspecified (6) Migraines Current Visit: No Status: Chronic - Follow-up Referral Minutes to complete discharge: 20 - AMA Did Patient Leave Against Medical Advice: No Additional Comments: Pt has refill from her primary care doctor as confirmed from her home pharmacy by this software writer. Pt has been instructed to picker feeder his Clonidine Rx refill from her pharmacy after discharge.
--- NOTE | 2019-03-13 15:06 | PN ---
[facility] Progress Note Note: Patient is scheduled for discharge tomorrow. Scripts for 30 days supply of medications(Seroquel 800 mg/hs, Gabapentin 300 mg/tid, Elavil 25 mg/bid & 100 mg /hs) will be electronically transmitted to [facility] at [address] [place] [id number]
[2019-03-13] MEDS: THIAMINE HCL 100 MG TABLET (FP) PO SCH (21:51)
[2019-03-13] MEDS: QUEtiapine FUMARATE 400 MG TABLET PO SCH (21:52)
[2019-03-13] MEDS: AMITRIPTYLINE HCL 100 MG TABLET PO SCH (21:52)
[2019-03-14] MEDS: METHADONE HCL 40 MG DISPERSABLE TABLET PO SCH (06:46)
[2019-03-14] MEDS: GABAPENTIN 300 MG CAPSULE (FP) PO SCH (06:46)
[2019-03-14 07:49] VITALS: TEMP 97.4
[2019-03-14 09:03] VITALS: BP 125/84; PULSE 114
[2019-03-14] MEDS: NICOTINE 14 MG/24 HOURS TOPICAL PATCH TD SCH (09:05)
[2019-03-14] MEDS: PRENATAL VITAMINS W/ FOLIC ACID TABLET (FP) PO SCH (09:05)
[2019-03-14] MEDS: cloNIDine HCL 0.1 MG TABLET PO SCH (09:05)
[2019-03-14] MEDS: BACITRACIN 15 GM TUBE TOPICAL OINTMENT TP SCH (09:05)
[2019-03-14] MEDS: AMITRIPTYLINE HCL 25 MG TABLET (FP) PO SCH (09:05)
== END 2019-03-14 09:10 | disposition home or self-care (01) | DRG 895 ==
LOC: YASAS 12:03 → Y6N 18:22 → Y3N 02-15 11:46 → Y3E 02-16 12:33
PROVIDERS: ADMIT Allergy & Immunology; ATTEND Neuromusculoskeletal Medicine & OMM
PROC: HZ2ZZZZ Detoxification Services for Substance Abuse Treatment (ICD-10-PCS; 2019-02-13)
PROC: HZ42ZZZ Group Counseling for Substance Abuse Treatment, Cognitive-Behavioral (ICD-10-PCS; principal; 2019-02-16)
DX: F10.20 Alcohol dependence, uncomplicated (principal); F11.20 Opioid dependence, uncomplicated; F13.20 Sedative, hypnotic or anxiolytic dependence, uncomplicated; F19.282 Other psychoactive substance dependence with psychoactive substance-induced sleep disorder; F17.210 Nicotine dependence, cigarettes, uncomplicated; F25.9 Schizoaffective disorder, unspecified; F19.24 Other psychoactive substance dependence with psychoactive substance-induced mood disorder; F43.10 Post-traumatic stress disorder, unspecified; F41.0 Panic disorder [episodic paroxysmal anxiety]; F31.9 Bipolar disorder, unspecified; G47.00 Insomnia, unspecified; I10 Essential (primary) hypertension; L30.9 Dermatitis, unspecified; L21.0 Seborrhea capitis; L98.8 Other specified disorders of the skin and subcutaneous tissue; B18.2 Chronic viral hepatitis C; Z86.69 Personal history of other diseases of the nervous system and sense organs; Z91.5 Personal history of self-harm; Z91.013 Allergy to seafood
CPT/HCPCS: 36415; 80053; 81003; 81025; 85027; 86593; 93005; 93010; G0480; J0735; Q0162

== ENCOUNTER 2019-12-19 10:26 | Inpatient (IN) | payer OTHER ==
--- NOTE | 2019-12-19 11:26 | BHS.RME ---
Substance Use & Tx History - Substance Use History Alcohol Substance amount: 2 beers Frequency of use: Daily Substance route: Oral Date of Last Use: 12/18/19 Heroin Substance amount: 1 bundle Frequency of use: Daily Substance route: Injection (ex: intravenous or skin popping) Date of Last Use: 12/19/19 Xanax Substance amount: 2 mg 1 tab Frequency of use: Daily Substance route: Oral Date of Last Use: 12/17/19 Klonopin Substance amount: 1 mg - 2tabs Date of Last Use: 12/18/19 CIWA Nausea/Vomitin-Mild Nausea/No Vomiting Muscle Tremors: 2 Anxiety: 2 Agitation: 2 Paroxysmal Sweats: 2 Orientation: 0-Oriented Tacttile Disturbances: 0-None Auditory Disturbances: 0-None Visual Disturbances: 0-None Headache: 1-Very Mild CIWA-Ar Total Score: 10
--- NOTE | 2019-12-19 13:12 | HP ---
CIWA Score Nausea/Vomitin-Mild Nausea/No Vomiting Muscle Tremors: 2 Anxiety: 2 Agitation: 2 Paroxysmal Sweats: 2 Orientation: 0-Oriented Tacttile Disturbances: 0-None Auditory Disturbances: 0-None Visual Disturbances: 0-None Headache: 1-Very Mild CIWA-Ar Total Score: 10 - Admission Criteria OASAS Guidelines: Admission for Medically Managed Detox: Requires at least one of the followin. CIWA greater than 12 2. Seizures within the past 24 hours 3. Delirium tremens within the past 24 hours 4. Hallucinations within the past 24 hours 5. Acute intervention needed for co occurring medical disorder 6. Acute intervention needed for co occurring psychiatric disorder 7. Severe withdrawal that cannot be handled at a lower level of care (continued vomiting, continued diarrhea, abnormal vital signs) requiring intravenous medication and/or fluids 8. Patient has prior hx of seizure, poor living conditions and is at high risk of relapse. Patient may not be in full withdrawal of heroin. Admitting History and Physical - Admission History of Present Illness: 34 y.o. F PMHx HTN, seizures presenting to [facility] for detox. Patient was examined in the room in no acute distress. Patient drug use consists of heroin 10 bags a day, 5 overdoses most recent 2 years ago, alcohol 2 beers a day, Xanax 2mg a day klonopin 1mg a day( benzos last taken 3 days ago), 1 pack of cigarettes a day. Substance Use History Alcohol Substance amount: 2 beers Frequency of use: Daily Substance route: Oral Date of Last Use: 12/18/19 Heroin Substance amount: 1 bundle Frequency of use: Daily Substance route: Injection (ex: intravenous or skin popping) Date of Last Use: 12/19/19 Xanax Substance amount: 2 mg 1 tab Frequency of use: Daily Substance route: Oral Date of Last Use: 12/17/19 Klonopin Substance amount: 1 mg - 2tabs Date of Last Use: 12/18/19 History Source: Patient Limitations to Obtaining History: No Limitations - Past Medical History SILK SPOOLER: Yes: Seizure Cardiovascular: Yes: HTN Pulmonary: No: Asthma Gastrointestinal: No: GERD Hepatobiliary: No: Hepatitis C ...LMP: 10/30/18 Psych: Yes: Bipolar, Panic, Other (schizoaffective) - Past Surgical History Past Surgical History: Yes: None - Smoking History Smoking history: Current every day smoker Have you smoked in the past 12 months: Yes Aproximately how many cigarettes per day: 20 - Alcohol/Substance Use Hx Alcohol Use: Yes History of Substance Use: reports: Cocaine, Heroin, Marijuana, Prescription - Social History Usual Living Arrangement: Yes: Alone ADL: Independent Occupation: unemployed History of Recent Travel: No [facility] Allergies/Adverse Reactions: Allergies Allergy/AdvReac Type Severity Reaction Status Date / Time Fish Containing Products Allergy Severe Difficulty Verified 08/28/19 10:28 Breathing No Known Drug Allergies Allergy Verified 08/29/19 10:18 fish Allergy Severe Difficulty Uncoded 08/28/19 10:28 Breathing History of Present Illness: 34 y.o. F PMHx HTN, seizures presenting to [facility] for detox. Patient was examined in the room in no acute distress. Patient drug use consists of heroin 10 bags a day, 5 overdoses most recent 2 years ago, alcohol 2 beers a day, Xanax 2mg a day klonopin 1mg a day (last benzo use 3 days ago), 1 pack of cigarettes a day. Substance Use History Alcohol Substance amount: 2 beers Frequency of use: Daily Substance route: Oral Date of Last Use: 12/18/19 Heroin Substance amount: 1 bundle Frequency of use: Daily Substance route: Injection (ex: intravenous or skin popping) Date of Last Use: 12/19/19 Xanax Substance amount: 2 mg 1 tab Frequency of use: Daily Substance route: Oral Date of Last Use: 12/17/19 Klonopin Substance amount: 1 mg - 2tabs Date of Last Use: 12/18/19 Exam Limitations: No Limitations - Ebola screening Have you traveled outside of the country in the last 21 days: No Have you had contact with anyone from an Ebola affected area: No Have you been sick,other than usual withdrawal symptoms: No Do you have a fever: No - Review of Systems Constitutional: No Symptoms Reported EENT: denies: Blurred Vision, Double Vision Respiratory: denies: Cough, Shortness of Breath Cardiac: denies: Chest Pain, Lightheadedness GI: denies: Constipated, Diarrhea, Nausea, Vomiting : reports: Burning, Dysuria Musculoskeletal: denies: Muscle Pain, Muscle Weakness Integumentary: denies: Bruising Neuro: reports: Numbness (R lateral LE). denies: Headache Hematology: denies: Easy Bleeding Psychiatric: reports: No Sypmtoms Reported, Judgement Intact, Mood/Affect Appropiate, Orientated x3 Patient History - Patient Medical History Hx Anemia: No Hx Asthma: No Hx Chronic Obstructive Pulmonary Disease (COPD): No Hx Cancer: No Hx Cardiac Disorders: No Hx Congestive Heart Failure: No Hx Hypertension: No Hx Hypercholesterolemia: No Hx Pacemaker: No HX Cerebrovascular Accident: No Hx Seizures: No Hx Dementia: No Hx Diabetes: No Hx Gastrointestinal Disorders: No Hx Liver Disease: No Hx Genitourinary Disorders: No Hx Sexually Transmitted Disorders: No Hx Renal Disease (ESRD): No Hx Thyroid Disease: No Hx Human Immunodeficiency Virus (HIV): No (negative test 6 months ago. ) Hx Hepatitis C: Yes (dx'ed 2017, no tx ) Hx Depression: Yes Hx Suicide Attempt: Yes Hx Bipolar Disorder: Yes Hx Schizophrenia: No - Patient Surgical History Past Surgical History: No Hx Neurologic Surgery: No Hx Cataract Extraction: No Hx Cardiac Surgery: No Hx Lung Surgery: No Hx Breast Surgery: No Hx Breast Biopsy: No Hx Abdominal Surgery: No Hx Appendectomy: No Hx Cholecystectomy: No Hx Genitourinary Surgery: No Hx Section: No Hx Orthopedic Surgery: No Hx Hysterectomy: No Anesthesia Reaction: No - PPD History Previous Implant?: Yes Documented Results: Negative w/proof Date: 08/30/19 Results: 0 mm - Reproductive History Last Menstrual Period: 10/30/18 - Smoking Cessation Smoking history: Current every day smoker Have you smoked in the past 12 months: Yes Aproximately how many cigarettes per day: 20 Hx Chewing Tobacco Use: No Initiated information on smoking cessation: Yes 'Breaking Loose' booklet given: 12/19/19 Admission Physical Exam S - Physical General Appearance: Yes: Within Normal Limits, No Apparent Distress, Nourished, Appropriately Dressed Respiratory: Yes: Within Normal Limits, Chest Non-Tender, Lungs Clear, Normal Breath Sounds, No Respiratory Distress, No Accessory Muscle Use Cardiology: Yes: Within Normal Limits, Regular Rhythm, Regular Rate Abdominal: Yes: Within Normal Limits, Normal Bowel Sounds, Non Tender, Flat, Soft Back: Yes: Within Normal Limits, Normal Inspection. No: CVA Tenderness Musculoskeletal: Yes: Within Normal Limits, full range of Motion, Gait Steady Extremities: Yes: Within Normal Limits, Normal Inspection, Non-Tender Neurological: Yes: Within Normal Limits, Fully Oriented, Alert, Normal Mood/Affect, Normal Response, Numbness (L LE) Integumentary: Yes: Within Normal Limits, Normal Color, Warm - Diagnostic (1) Alcohol dependence with uncomplicated withdrawal Current Visit: No Status: Acute (2) Elevated alanine aminotransferase (ALT) level Current Visit: No Status: Acute (3) Elevated aspartate aminotransferase level Current Visit: No Status: Acute (4) Sedative, hypnotic or anxiolytic dependence, uncomplicated Current Visit: No Status: Acute Comment: . (5) Substance induced mood disorder Current Visit: No Status: Acute Comment: . (6) Alcohol abuse Current Visit: No Status: Chronic (7) Alcohol dependence Current Visit: No Status: Chronic Qualifiers: Substance use status: uncomplicated Qualified Code(s): F10.20 - Alcohol dependence, uncomplicated Comment: . (8) Bipolar disorder Current Visit: No Status: Chronic (9) HTN (hypertension) Current Visit: No Status: Chronic Qualifiers: Hypertension type: essential hypertension Qualified Code(s): I10 - Essential (primary) hypertension (10) Migraines Current Visit: No Status: Chronic (11) Nicotine dependence Current Visit: No Status: Chronic Qualifiers: Nicotine product type: cigarettes Substance use status: uncomplicated Qualified Code(s): F17.210 - Nicotine dependence, cigarettes, uncomplicated Comment: . (12) PTSD (post-traumatic stress disorder) Current Visit: No Status: Chronic Comment: . (13) Sedative dependence Current Visit: No Status: Chronic Cleared for Admission S - Detox or Rehab [facility] Level of Care: Medically Managed Detox Regimen/Protocol: Methadone Breathalyzer - Breathalyzer Breathalyzer: 0 Vital Signs - Vital Signs Vital signs refused: No Temperature: 96.8 F Pulse Rate: 66 Respiratory Rate: 18 Blood Pressure: 70/47 BP Location: Left Arm Blood Pressure position: Sitting - Height Height: 1.63 m - Weight Weight: 75.296 kg - BMI Body Mass Index (BMI): 28.5 Urine Drug Screen - Test Device Lot number: [id number] Expiration date: 07/17/21 - Control Is test valid?: Yes - Results Drug screen NEGATIVE: No Urine drug screen results: FEN-Fentanyl, MOP-Opiates, MTD-Methadone Inpatient Rehab Admission - Rehab Decision to Admit Inpatient rehab admission?: No
[2019-12-19 13:19] VITALS: BMI 28.5
[2019-12-19] MEDS ORDERED: cloNIDine HCL 0.1 MG TABLET PO PRN (13:19)
[2019-12-19] MEDS ORDERED: ACETAMINOPHEN 325 MG TABLET (FP) PO PRN (13:19)
[2019-12-19] MEDS ORDERED: ONDANSETRON *ODT* 4 MG TABLET SL PRN (13:19)
[2019-12-19] MEDS ORDERED: MAGNESIUM HYDROX 2400MG/30ML ORAL SUSPENSION 30 ML CUP PO PRN (13:19)
[2019-12-19] MEDS ORDERED: MAGNESIUM CITRATE 300 ML BOTTLE PO PRN (13:19)
[2019-12-19] MEDS ORDERED: MENTHOL/PHENOL 1 EACH UD MM PRN (13:19)
[2019-12-19] MEDS ORDERED: IBUPROFEN 400 MG TABLET (FP) PO PRN (13:19)
[2019-12-19] MEDS ORDERED: MAG HYDROX/AL HYDROX/SIMETH 30 ML UNIT-DOSE CUP PO PRN (13:19)
[2019-12-19] MEDS ORDERED: BISMUTH SUBSALICYLATE 524 MG/30 ML UD PO PRN (13:19)
[2019-12-19] MEDS ORDERED: METHADONE HCL 10 MG TABLET (FOR DETOX USE ONLY) PO ONE (13:45)
[2019-12-19] MEDS: hydrOXYzine PAMOATE 25 MG CAPSULE (FP) PO SCH ×3 (14:40→22:17)
--- NOTE | 2019-12-19 14:43 | PN ---
Teaching Attending Note Name of Resident: Nimesh Grace ATTENDING PHYSICIAN STATEMENT I saw and evaluated the patient. I reviewed the resident's note and discussed the case with the resident. I agree with the resident's findings and plan as documented. SUBJECTIVE: OBJECTIVE: ASSESSMENT AND PLAN: 1. Sedative use disorder, meets criteria for admission due to poor recovery environment, high risk relapse Plan 1. Valium detox protocol 2. continue methadone maintenence
--- NOTE | 2019-12-19 15:53 | PN ---
S Progress Note Note: Psychiatric nurse practitoner note: Patient reports feeling too tired to speak today. Psychiatric consultation deferred for tomorrow.
[2019-12-19 17:42] LABS: HEMATOCRIT 37.4 % (32.4-45.2); HEMOGLOBIN 12.5 GM/dL (10.7-15.3); MCH 30.9 pg (25.7-33.7); MCHC 33.4 g/dl (32.0-36.0); MEAN CELL VOLUME 92.7 fl (80-96); MEAN PLT VOLUME 9.1 fl (7.5-11.1); PLATELET COUNT 233 K/MM3 (134-434); RBC 4.04 M/mm3 (3.60-5.2); RDW 13.6 % (11.6-15.6); WHITE BLOOD COUNT 7.8 K/mm3 (4.0-10.0)
[2019-12-19 17:54] LABS: ALBUMIN 3.7 g/dl (3.4-5.0); BILIRUBIN,TOTAL 0.3 mg/dL (0.2-1); BLOOD UREA NITROGEN 15.8 mg/dL (7-18); CALCIUM 8.8 mg/dL (8.5-10.1); CREATININE 1.8 mg/dL (0.55-1.3); POTASSIUM 4.4 mmol/L (3.5-5.1); TOT PROT 7.8 g/dl (6.4-8.2)
[2019-12-19] MEDS: diazePAM 5 MG TABLET PO SCH ×2 (18:22→22:17)
[2019-12-19] MEDS: THIAMINE HCL 100 MG TABLET (FP) PO SCH (22:17)
[2019-12-19] MEDS: MELATONIN 5 MG TABLETS PO SCH (22:17)
[2019-12-19] MEDS: METHOCARBAMOL 500 MG TABLET PO PRN (22:18)
[2019-12-20] MEDS ORDERED: METHADONE HCL 5 MG TABLET ONE (04:23)
[2019-12-20] MEDS ORDERED: METHADONE HCL 40 MG DISPERSABLE TABLET ONE (04:23)
[2019-12-20] MEDS ORDERED: METHADONE HCL 10 MG TABLET PO SCH (06:00)
[2019-12-20] MEDS: METHADONE 120 MG, METHADONE 5 MG PO SCH (06:24)
[2019-12-20] MEDS: diazePAM 5 MG TABLET PO SCH ×4 (06:25→22:15)
[2019-12-20] MEDS: hydrOXYzine PAMOATE 25 MG CAPSULE (FP) PO SCH ×5 (06:25→22:14)
[2019-12-20] MEDS ORDERED: METHADONE (DETOX) 20 MG, METHADONE (DETOX) 5 MG PO ONE (10:00)
[2019-12-20] MEDS: SULFAMETHOXAZOLE/TRIMETHOPRIM 800MG/160MG D.S. TABLET PO SCH ×2 (10:10→22:15)
[2019-12-20] MEDS: NICOTINE 7 MG/24 HOURS TOPICAL PATCH TD SCH (10:10)
[2019-12-20] MEDS: PRENATAL VITAMINS W/ FOLIC ACID TABLET (FP) PO SCH (10:10)
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
--- NOTE | 2019-12-20 14:14 | PN ---
[facility] CIWA - CIWA Score Nausea/Vomitin-No Nausea/No Vomiting Muscle Tremors: 3 Anxiety: 3 Agitation: 3 Paroxysmal Sweats: 3 Orientation: 0-Oriented Tacttile Disturbances: 0-None Auditory Disturbances: 0-None Visual Disturbances: 0-None Headache: 0-None Present CIWA-Ar Total Score: 12 S Progress Note (SOAP) Subjective: foul smelling order and burning when i use the bathroom to urinate sweats shakes my neuropathy is acting up interrupted sleep agitation Objective: 12/20/19 14:13 Vital Signs Temperature 96.4 F L 12/20/19 10:44 Pulse Rate 88 12/20/19 10:44 Respiratory Rate 16 12/20/19 10:44 Blood Pressure 119/57 L 12/20/19 10:44 O2 Sat by Pulse Oximetry (%) 100 12/20/19 10:44 Laboratory Tests 12/19/19 12/19/19 12/19/19 11:46 12:50 12:50 WBC 7.8 RBC 4.04 Hgb 12.5 Hct 37.4 MCV 92.7 MCH 30.9 MCHC 33.4 RDW 13.6 Plt Count 233 D MPV 9.1 Sodium Potassium Chloride Carbon Dioxide Anion Gap BUN Creatinine Est GFR (CKD-EPI)AfAm Est GFR (CKD-EPI)NonAf Random Glucose Calcium Total Bilirubin AST ALT Alkaline Phosphatase Total Protein Albumin POC Urine HCG, Qual Negative Syphilis Serology COVID-19 (NAHID) HIV Ag/Ab Combo Qual Negative 12/19/19 12/19/19 12/19/19 12:50 12:50 14:00 WBC RBC Hgb Hct MCV MCH MCHC RDW Plt Count MPV Sodium 137 Potassium 4.4 Chloride 104 Carbon Dioxide 26 Anion Gap 7 L BUN 15.8 Creatinine 1.8 H Est GFR (CKD-EPI)AfAm 42.12 Est GFR (CKD-EPI)NonAf 36.34 Random Glucose 90 Calcium 8.8 Total Bilirubin 0.3 AST 57 H ALT 84 H Alkaline Phosphatase 96 Total Protein 7.8 Albumin 3.7 POC Urine HCG, Qual Syphilis Serology Non-reactive COVID-19 (NAHID) Not detected HIV Ag/Ab Combo Qual labs noted aaox3 ambulating no acute distress u/a ordered Assessment: 12/20/19 14:13 withdrawals Plan: continue detox increase fluids u/a ordered bactrim ds bid x 7 days gabapentin ordered
[2019-12-20] MEDS: diazePAM 5 MG TABLET PO PRN (14:43)
[2019-12-20] MEDS: QUEtiapine FUMARATE 400 MG TABLET PO SCH (22:14)
[2019-12-20] MEDS: THIAMINE HCL 100 MG TABLET (FP) PO SCH (22:14)
[2019-12-20] MEDS: GABAPENTIN 300 MG CAPSULE PO SCH (22:14)
[2019-12-20] MEDS: AMITRIPTYLINE HCL 25 MG TABLET PO SCH (22:14)
[2019-12-20] MEDS: MELATONIN 5 MG TABLETS PO SCH (22:15)
[2019-12-20] MEDS: SUVOREXANT 10 MG TABLET PO PRN (22:15)
[2019-12-21] MEDS ORDERED: METHADONE HCL 40 MG DISPERSABLE TABLET ONE (04:45)
[2019-12-21] MEDS ORDERED: METHADONE HCL 5 MG TABLET ONE (04:46)
[2019-12-21] MEDS: GABAPENTIN 300 MG CAPSULE PO SCH ×3 (06:28→22:35)
[2019-12-21] MEDS: diazePAM 5 MG TABLET PO SCH ×3 (06:28→22:35)
[2019-12-21] MEDS: METHADONE 120 MG, METHADONE 5 MG PO SCH (06:28)
[2019-12-21] MEDS: hydrOXYzine PAMOATE 25 MG CAPSULE (FP) PO SCH ×4 (06:28→17:15)
[2019-12-21] MEDS ORDERED: METHADONE HCL 10 MG TABLET (FOR DETOX USE ONLY) PO ONE (10:00)
[2019-12-21] MEDS: NICOTINE 7 MG/24 HOURS TOPICAL PATCH TD SCH (10:41)
[2019-12-21] MEDS: SULFAMETHOXAZOLE/TRIMETHOPRIM 800MG/160MG D.S. TABLET PO SCH ×2 (10:42→22:35)
[2019-12-21] MEDS: PRENATAL VITAMINS W/ FOLIC ACID TABLET (FP) PO SCH (10:42)
--- NOTE | 2019-12-21 11:42 | PN ---
S CIWA - CIWA Score Nausea/Vomitin-No Nausea/No Vomiting Muscle Tremors: 2 Anxiety: 2 Agitation: 2 Paroxysmal Sweats: 2 Orientation: 0-Oriented Tacttile Disturbances: 0-None Auditory Disturbances: 0-None Visual Disturbances: 0-None Headache: 0-None Present CIWA-Ar Total Score: 8 BHS Progress Note (SOAP) Subjective: sweats shakes interrupted sleep anxiety Objective: 12/21/19 11:42 Vital Signs Temperature 97.8 F 12/21/19 09:31 Pulse Rate 108 H 12/21/19 09:31 Respiratory Rate 18 12/21/19 09:31 Blood Pressure 131/74 12/21/19 09:31 O2 Sat by Pulse Oximetry (%) 99 12/21/19 09:31 Laboratory Tests 12/19/19 12/19/19 12/19/19 11:46 12:50 12:50 WBC 7.8 RBC 4.04 Hgb 12.5 Hct 37.4 MCV 92.7 MCH 30.9 MCHC 33.4 RDW 13.6 Plt Count 233 D MPV 9.1 Sodium Potassium Chloride Carbon Dioxide Anion Gap BUN Creatinine Est GFR (CKD-EPI)AfAm Est GFR (CKD-EPI)NonAf Random Glucose Calcium Total Bilirubin AST ALT Alkaline Phosphatase Total Protein Albumin POC Urine HCG, Qual Negative Syphilis Serology COVID-19 (NAHID) HIV Ag/Ab Combo Qual Negative 12/19/19 12/19/19 12/19/19 12:50 12:50 14:00 WBC RBC Hgb Hct MCV MCH MCHC RDW Plt Count MPV Sodium 137 Potassium 4.4 Chloride 104 Carbon Dioxide 26 Anion Gap 7 L BUN 15.8 Creatinine 1.8 H Est GFR (CKD-EPI)AfAm 42.12 Est GFR (CKD-EPI)NonAf 36.34 Random Glucose 90 Calcium 8.8 Total Bilirubin 0.3 AST 57 H ALT 84 H Alkaline Phosphatase 96 Total Protein 7.8 Albumin 3.7 POC Urine HCG, Qual Syphilis Serology Non-reactive COVID-19 (NAHID) Not detected HIV Ag/Ab Combo Qual labs noted aaox3 ambulating no acute distress Assessment: 12/21/19 11:42 withdrawals Plan: continue detox
[2019-12-21] MEDS: NICOTINE POLACRILEX 2 MG GUM BUC PRN (15:35)
[2019-12-21] MEDS: AMITRIPTYLINE HCL 25 MG TABLET PO SCH (22:35)
[2019-12-21] MEDS: QUEtiapine FUMARATE 400 MG TABLET PO SCH (22:35)
[2019-12-21] MEDS: THIAMINE HCL 100 MG TABLET (FP) PO SCH (22:35)
[2019-12-21] MEDS: SUVOREXANT 10 MG TABLET PO PRN (22:36)
[2019-12-22] MEDS: hydrOXYzine PAMOATE 25 MG CAPSULE (FP) PO SCH ×6 (00:18→22:02)
[2019-12-22] MEDS: MELATONIN 5 MG TABLETS PO SCH ×2 (00:18→22:02)
[2019-12-22] MEDS ORDERED: METHADONE HCL 40 MG DISPERSABLE TABLET ONE (05:43)
[2019-12-22] MEDS ORDERED: METHADONE HCL 5 MG TABLET ONE (05:44)
[2019-12-22] MEDS: METHADONE 120 MG, METHADONE 5 MG PO SCH (06:56)
[2019-12-22] MEDS: GABAPENTIN 300 MG CAPSULE PO SCH ×3 (06:56→22:02)
[2019-12-22] MEDS: diazePAM 5 MG TABLET PO SCH ×2 (06:56→17:17)
[2019-12-22] MEDS ORDERED: METHADONE (DETOX) 10 MG, METHADONE (DETOX) 5 MG PO ONE (10:00)
[2019-12-22] MEDS: NICOTINE 7 MG/24 HOURS TOPICAL PATCH TD SCH (10:11)
[2019-12-22] MEDS: SULFAMETHOXAZOLE/TRIMETHOPRIM 800MG/160MG D.S. TABLET PO SCH ×2 (10:11→22:02)
[2019-12-22] MEDS: PRENATAL VITAMINS W/ FOLIC ACID TABLET (FP) PO SCH (10:11)
[2019-12-22] MEDS: diazePAM 5 MG TABLET PO PRN (10:12)
[2019-12-22] MEDS: NICOTINE POLACRILEX 2 MG GUM BUC PRN (10:16)
[2019-12-22] MEDS: METHOCARBAMOL 500 MG TABLET PO PRN (14:38)
--- NOTE | 2019-12-22 16:19 | PN ---
S CIWA - CIWA Score Nausea/Vomitin-No Nausea/No Vomiting Muscle Tremors: 3 Anxiety: 3 Agitation: 1-Slight > Activity Paroxysmal Sweats: 3 Orientation: 0-Oriented Tacttile Disturbances: 0-None Auditory Disturbances: 1-Very Mild Visual Disturbances: 0-None Headache: 0-None Present CIWA-Ar Total Score: 11 BHS Progress Note (SOAP) Subjective: Tremors, Sweating, Anxious, Fatigue. Objective: Patient A & O X 3; In No Acute Distress. 12/22/19 16:20 Vital Signs Temperature 98.6 F 12/22/19 12:28 Pulse Rate 95 H 12/22/19 12:28 Respiratory Rate 18 12/22/19 12:28 Blood Pressure 114/59 L 12/22/19 12:28 O2 Sat by Pulse Oximetry (%) 97 12/22/19 12:28 Laboratory Tests 12/19/19 12/19/19 12/19/19 11:46 12:50 12:50 WBC 7.8 RBC 4.04 Hgb 12.5 Hct 37.4 MCV 92.7 MCH 30.9 MCHC 33.4 RDW 13.6 Plt Count 233 D MPV 9.1 Sodium Potassium Chloride Carbon Dioxide Anion Gap BUN Creatinine Est GFR (CKD-EPI)AfAm Est GFR (CKD-EPI)NonAf Random Glucose Calcium Total Bilirubin AST ALT Alkaline Phosphatase Total Protein Albumin POC Urine HCG, Qual Negative Syphilis Serology COVID-19 (NAHID) HIV Ag/Ab Combo Qual Negative 12/19/19 12/19/19 12/19/19 12:50 12:50 14:00 WBC RBC Hgb Hct MCV MCH MCHC RDW Plt Count MPV Sodium 137 Potassium 4.4 Chloride 104 Carbon Dioxide 26 Anion Gap 7 L BUN 15.8 Creatinine 1.8 H Est GFR (CKD-EPI)AfAm 42.12 Est GFR (CKD-EPI)NonAf 36.34 Random Glucose 90 Calcium 8.8 Total Bilirubin 0.3 AST 57 H ALT 84 H Alkaline Phosphatase 96 Total Protein 7.8 Albumin 3.7 POC Urine HCG, Qual Syphilis Serology Non-reactive COVID-19 (NAHID) Not detected HIV Ag/Ab Combo Qual Lab Results noted. Patient denies known history of Renal Disorder. She does reports history of "bad kidney infection" in past. 12/22/19 16:22 Assessment: 12/22/19 16:21 WITHDRAWAL SYMPTOMS. AZOTEMIA ELEVATED AST LEVEL ELEVATED ALT LEVEL Plan: Continue Detox. Patient advised to follow-up with ASSISTANT LOAN PROCESSOR after Discharge from Detox for general medical assessment and for abnormal renal lab results noted on detox admission laboratory assessment. Patient verbalized understanding of recommendation. Copies of results of all labs drawn while admitted for detox given to patient at time of discharge from detox unit.
[2019-12-22] MEDS: QUEtiapine FUMARATE 400 MG TABLET PO SCH (22:02)
[2019-12-22] MEDS: AMITRIPTYLINE HCL 25 MG TABLET PO SCH (22:02)
[2019-12-22] MEDS: THIAMINE HCL 100 MG TABLET (FP) PO SCH (22:02)
[2019-12-22] MEDS: SUVOREXANT 10 MG TABLET PO PRN (22:03)
[2019-12-23] MEDS ORDERED: METHADONE HCL 40 MG DISPERSABLE TABLET ONE (04:53)
[2019-12-23] MEDS ORDERED: METHADONE HCL 5 MG TABLET ONE (04:54)
[2019-12-23] MEDS ORDERED: diazePAM 5 MG TABLET PO ONE ×2 (06:00→20:00)
[2019-12-23] MEDS: diazePAM 5 MG TABLET PO SCH ×2 (07:22→17:39)
[2019-12-23] MEDS: METHADONE 120 MG, METHADONE 5 MG PO SCH (07:22)
[2019-12-23] MEDS: GABAPENTIN 300 MG CAPSULE PO SCH ×3 (07:22→22:15)
[2019-12-23] MEDS: hydrOXYzine PAMOATE 25 MG CAPSULE (FP) PO SCH ×5 (07:27→22:15)
[2019-12-23] MEDS ORDERED: METHADONE HCL 10 MG TABLET (FOR DETOX USE ONLY) PO ONE (10:00)
[2019-12-23] MEDS: SULFAMETHOXAZOLE/TRIMETHOPRIM 800MG/160MG D.S. TABLET PO SCH ×2 (10:17→22:15)
[2019-12-23] MEDS: PRENATAL VITAMINS W/ FOLIC ACID TABLET (FP) PO SCH (10:17)
[2019-12-23] MEDS: NICOTINE 7 MG/24 HOURS TOPICAL PATCH TD SCH (10:19)
[2019-12-23] MEDS: NICOTINE POLACRILEX 2 MG GUM BUC PRN ×2 (10:21→18:57)
[2019-12-23] MEDS: BACITRACIN 0.9 GM PACKET TP SCH ×2 (14:13→22:15)
--- NOTE | 2019-12-23 19:43 | PN ---
S CIWA - CIWA Score Nausea/Vomitin-No Nausea/No Vomiting Muscle Tremors: 2 Anxiety: 1-Mildly Anxious Agitation: 1-Slight > Activity Paroxysmal Sweats: 2 Orientation: 0-Oriented Tacttile Disturbances: 0-None Auditory Disturbances: 0-None Visual Disturbances: 0-None Headache: 0-None Present CIWA-Ar Total Score: 6 BHS Progress Note (SOAP) Subjective: Sweating, interrupted sleep Objective: 12/23/19 19:39 Last Vital Signs Temp Pulse Resp BP Pulse Ox 97.3 F L 120 H 20 135/75 94 L 12/23/19 09:15 12/23/19 09:15 12/23/19 09:15 12/23/19 09:15 12/23/19 06:19 Laboratory Tests 12/19/19 12/19/19 12/19/19 11:46 12:50 12:50 WBC 7.8 RBC 4.04 Hgb 12.5 Hct 37.4 MCV 92.7 MCH 30.9 MCHC 33.4 RDW 13.6 Plt Count 233 D MPV 9.1 Sodium Potassium Chloride Carbon Dioxide Anion Gap BUN Creatinine Est GFR (CKD-EPI)AfAm Est GFR (CKD-EPI)NonAf Random Glucose Calcium Total Bilirubin AST ALT Alkaline Phosphatase Total Protein Albumin POC Urine HCG, Qual Negative Syphilis Serology COVID-19 (NAHID) HIV Ag/Ab Combo Qual Negative 12/19/19 12/19/19 12/19/19 12:50 12:50 14:00 WBC RBC Hgb Hct MCV MCH MCHC RDW Plt Count MPV Sodium 137 Potassium 4.4 Chloride 104 Carbon Dioxide 26 Anion Gap 7 L BUN 15.8 Creatinine 1.8 H Est GFR (CKD-EPI)AfAm 42.12 Est GFR (CKD-EPI)NonAf 36.34 Random Glucose 90 Calcium 8.8 Total Bilirubin 0.3 AST 57 H ALT 84 H Alkaline Phosphatase 96 Total Protein 7.8 Albumin 3.7 POC Urine HCG, Qual Syphilis Serology Non-reactive COVID-19 (NAHID) Not detected HIV Ag/Ab Combo Qual Labs reviewed: serum creatinine 1.8 (high), GFR low, AST/ALT high Assessment: 12/23/19 19:41 Withdrawal sxs Noted with SULEIMAN vs CKD, transaminitis Plan: Continue detox Encourage PO water intake Needs follow up on repeated labs in order to make discharge decision SULEIMAN: encourage to drink more water, repeat electrolytes panel Transaminitis: repeat AST, ALT
[2019-12-23] MEDS: AMITRIPTYLINE HCL 25 MG TABLET PO SCH (22:14)
[2019-12-23] MEDS: THIAMINE HCL 100 MG TABLET (FP) PO SCH (22:15)
[2019-12-23] MEDS: QUEtiapine FUMARATE 400 MG TABLET PO SCH (22:15)
[2019-12-23] MEDS: MELATONIN 5 MG TABLETS PO SCH (22:16)
[2019-12-24] MEDS ORDERED: METHADONE HCL 5 MG TABLET ONE (04:07)
[2019-12-24] MEDS ORDERED: METHADONE HCL 40 MG DISPERSABLE TABLET ONE (04:07)
[2019-12-24] MEDS ORDERED: diazePAM 5 MG TABLET PO ONE (06:00)
[2019-12-24] MEDS ORDERED: METHADONE HCL 5 MG TABLET (FOR DETOX USE ONLY) PO ONE (06:00)
[2019-12-24] MEDS: hydrOXYzine PAMOATE 25 MG CAPSULE (FP) PO SCH ×5 (06:39→21:39)
[2019-12-24] MEDS: GABAPENTIN 300 MG CAPSULE PO SCH ×3 (06:39→21:39)
[2019-12-24] MEDS: METHADONE 120 MG, METHADONE 5 MG PO SCH (06:39)
[2019-12-24] MEDS ORDERED: cloNIDine HCL 0.1 MG TABLET PO ONE (09:02)
--- NOTE | 2019-12-24 09:11 | DS ---
[facility] Detox Discharge Summary Admission Date: 12/19/19 Discharge Date: 12/24/19 - History Present History: Alcohol Dependence - Physical Exam Results Vital Signs: Vital Signs Temperature 97.9 F 12/24/19 05:47 Pulse Rate 18 L 12/24/19 05:47 Respiratory Rate 12/24/19 05:47 Blood Pressure 141/84 12/24/19 05:47 O2 Sat by Pulse Oximetry (%) 97 12/24/19 05:47 Pertinent Admission Physical Exam Findings: Vital Signs Temperature 97.9 F 12/24/19 05:47 Pulse Rate 18 L 12/24/19 05:47 Respiratory Rate 12/24/19 05:47 Blood Pressure 141/84 12/24/19 05:47 O2 Sat by Pulse Oximetry (%) 97 12/24/19 05:47 Laboratory Tests 12/19/19 12/19/19 12/19/19 11:46 12:50 12:50 WBC 7.8 RBC 4.04 Hgb 12.5 Hct 37.4 MCV 92.7 MCH 30.9 MCHC 33.4 RDW 13.6 Plt Count 233 D MPV 9.1 Sodium Potassium Chloride Carbon Dioxide Anion Gap BUN Creatinine Est GFR (CKD-EPI)AfAm Est GFR (CKD-EPI)NonAf Random Glucose Calcium Total Bilirubin AST ALT Alkaline Phosphatase Total Protein Albumin POC Urine HCG, Qual Negative Syphilis Serology COVID-19 (NAHID) HIV Ag/Ab Combo Qual Negative 12/19/19 12/19/19 12/19/19 12:50 12:50 14:00 WBC RBC Hgb Hct MCV MCH MCHC RDW Plt Count MPV Sodium 137 Potassium 4.4 Chloride 104 Carbon Dioxide 26 Anion Gap 7 L BUN 15.8 Creatinine 1.8 H Est GFR (CKD-EPI)AfAm 42.12 Est GFR (CKD-EPI)NonAf 36.34 Random Glucose 90 Calcium 8.8 Total Bilirubin 0.3 AST 57 H ALT 84 H Alkaline Phosphatase 96 Total Protein 7.8 Albumin 3.7 POC Urine HCG, Qual Syphilis Serology Non-reactive COVID-19 (NAHID) Not detected HIV Ag/Ab Combo Qual aaox3 ambulating no acute distress lungs CTA - Treatment Hospital Course: Detox Protocol Followed, Detoxed Safely, Responded well, Discharged Condition Good, Rehab Referral Accepted - Medication Discharge Medications: Ambulatory Orders Methadone [Dolophine -] 125 mg PO DAILY 01/27/17 cloNIDine HCL [Catapres -] 0.2 mg PO BID 01/27/17 Clonidine HCl [Catapres] 0.3 mg PO BID 08/28/19 Amitriptyline HCl [Elavil -] 25 mg PO HS #30 tablet 09/24/19 Gabapentin [Neurontin -] 300 mg PO TID #90 capsule 09/24/19 Quetiapine Fumarate [Seroquel -] 800 mg PO HS #60 tab 09/24/19 - Diagnosis (1) Alcohol dependence with uncomplicated withdrawal Current Visit: Yes Status: Chronic (2) Azotemia Current Visit: Yes Status: Acute (3) Elevated alanine aminotransferase (ALT) level Current Visit: Yes Status: Acute (4) Elevated aspartate aminotransferase level Current Visit: Yes Status: Acute (5) Sedative, hypnotic or anxiolytic dependence, uncomplicated Current Visit: Yes Status: Acute (6) Substance-induced sleep disorder Current Visit: Yes Status: Acute (7) Bipolar disorder Current Visit: Yes Status: Chronic (8) Opioid dependence on agonist therapy Current Visit: Yes Status: Chronic (9) PTSD (post-traumatic stress disorder) Current Visit: Yes Status: Chronic (10) Schizoaffective disorder Current Visit: Yes Status: Suspected (11) Hypnagogic hallucinations Current Visit: No Status: Acute (12) Substance induced mood disorder Current Visit: No Status: Acute (13) Alcohol abuse Current Visit: No Status: Chronic (14) Alcohol dependence Current Visit: Yes Status: Chronic Qualifiers: Substance use status: uncomplicated Qualified Code(s): F10.20 - Alcohol dependence, uncomplicated (15) Bipolar disorder Current Visit: No Status: Chronic (16) Chronic pain of left ankle Current Visit: No Status: Chronic (17) HTN (hypertension) Current Visit: No Status: Chronic Qualifiers: Hypertension type: essential hypertension Qualified Code(s): I10 - Essential (primary) hypertension (18) Hepatitis-C Current Visit: No Status: Chronic Qualifiers: Viral hepatitis chronicity: unspecified (19) Insomnia Current Visit: No Status: Chronic (20) Migraines Current Visit: No Status: Chronic (21) Nicotine dependence Current Visit: No Status: Chronic Qualifiers: Nicotine product type: cigarettes Substance use status: uncomplicated Qualified Code(s): F17.210 - Nicotine dependence, cigarettes, uncomplicated (22) Sedative dependence Current Visit: No Status: Chronic - AMA Did Patient Leave Against Medical Advice: No
[2019-12-24] MEDS: BACITRACIN 0.9 GM PACKET TP SCH ×2 (09:51→21:39)
[2019-12-24] MEDS: SULFAMETHOXAZOLE/TRIMETHOPRIM 800MG/160MG D.S. TABLET PO SCH ×2 (09:52→21:39)
[2019-12-24 11:02] LABS: BLOOD UREA NITROGEN 18.9 mg/dL (7-18); CALCIUM 9.8 mg/dL (8.5-10.1); POTASSIUM 4.2 mmol/L (3.5-5.1)
[2019-12-24] MEDS: PRENATAL VITAMINS W/ FOLIC ACID TABLET (FP) PO SCH (11:30)
[2019-12-24] MEDS: NICOTINE 7 MG/24 HOURS TOPICAL PATCH TD SCH (11:30)
[2019-12-24 11:41] LABS: SGOT/AST 41 U/L (15-37); SGPT/ALT 54 U/L (13-61)
[2019-12-24] MEDS ORDERED: PT OWN MED DRAWER 7, Y5N ONE (21:37)
[2019-12-24] MEDS: cloNIDine HCL 0.1 MG TABLET PO SCH (21:39)
[2019-12-24] MEDS: THIAMINE HCL 100 MG TABLET (FP) PO SCH (21:39)
[2019-12-24] MEDS: AMITRIPTYLINE HCL 25 MG TABLET PO SCH (21:39)
[2019-12-24] MEDS: METHOCARBAMOL 500 MG TABLET PO PRN (21:39)
[2019-12-24] MEDS: MELATONIN 5 MG TABLETS PO SCH (21:40)
[2019-12-24] MEDS: QUEtiapine FUMARATE 400 MG TABLET PO SCH (22:13)
[2019-12-25] MEDS ORDERED: METHADONE HCL 40 MG DISPERSABLE TABLET ONE (03:11)
[2019-12-25] MEDS ORDERED: METHADONE HCL 5 MG TABLET ONE (03:11)
[2019-12-25] MEDS: hydrOXYzine PAMOATE 25 MG CAPSULE (FP) PO SCH ×2 (06:53→10:05)
[2019-12-25] MEDS: METHADONE 120 MG, METHADONE 5 MG PO SCH (06:53)
[2019-12-25] MEDS: GABAPENTIN 300 MG CAPSULE PO SCH ×3 (06:53→21:31)
[2019-12-25] MEDS: cloNIDine HCL 0.1 MG TABLET PO SCH ×2 (10:04→21:30)
[2019-12-25] MEDS: SULFAMETHOXAZOLE/TRIMETHOPRIM 800MG/160MG D.S. TABLET PO SCH ×2 (10:04→21:30)
[2019-12-25] MEDS: PRENATAL VITAMINS W/ FOLIC ACID TABLET (FP) PO SCH (10:05)
[2019-12-25] MEDS: NICOTINE 7 MG/24 HOURS TOPICAL PATCH TD SCH (10:05)
[2019-12-25] MEDS: BACITRACIN 0.9 GM PACKET TP SCH ×2 (10:05→21:32)
[2019-12-25] MEDS: NICOTINE POLACRILEX 2 MG GUM BUC PRN (10:09)
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
[2019-12-25 14:57] LABS: EPI CELLS >36 /uL (0-25.1); HYALINE CASTS 4 /uL (0-3.1); PH,URINE 6.5 (5.0-8.0); URINE APPEARANCE CLOUDY; URINE BACTERIA >9,000 /uL (0-1359); URINE BILIRUBIN NEGATIVE (NEGATIVE); URINE COLOR YELLOW; URINE GLUCOSE (UA) NEGATIVE (NEGATIVE); URINE KETONE NEGATIVE (NEGATIVE); URINE LEUK ESTERASE TRACE (NEGATIVE); URINE NITRITE POSITIVE (NEGATIVE); URINE PROTEIN NEGATIVE (NEGATIVE); URINE RBC 8 /uL (0-23.9); URINE UROBILINOGEN 0.2 mg/dL (0.2-1.0); URINE WBC 78 /uL (0-25.8)
[2019-12-25] MEDS: QUEtiapine FUMARATE 400 MG TABLET PO SCH (21:30)
[2019-12-25] MEDS: AMITRIPTYLINE HCL 25 MG TABLET PO SCH (21:31)
[2019-12-25] MEDS: MELATONIN 5 MG TABLETS PO SCH (21:31)
[2019-12-25] MEDS: SUVOREXANT 15 MG TABLET PO PRN (21:32)
[2019-12-25] MEDS: THIAMINE HCL 100 MG TABLET (FP) PO SCH (21:32)
[2019-12-26] MEDS ORDERED: METHADONE HCL 5 MG TABLET ONE (03:13)
[2019-12-26] MEDS ORDERED: METHADONE HCL 40 MG DISPERSABLE TABLET ONE (03:14)
[2019-12-26] MEDS: GABAPENTIN 300 MG CAPSULE PO SCH ×3 (06:26→21:24)
[2019-12-26] MEDS: METHADONE 120 MG, METHADONE 5 MG PO SCH (06:26)
[2019-12-26] MEDS: SULFAMETHOXAZOLE/TRIMETHOPRIM 800MG/160MG D.S. TABLET PO SCH ×2 (10:01→21:24)
[2019-12-26] MEDS: NICOTINE 7 MG/24 HOURS TOPICAL PATCH TD SCH (10:01)
[2019-12-26] MEDS: cloNIDine HCL 0.1 MG TABLET PO SCH ×2 (10:01→21:24)
[2019-12-26] MEDS: PRENATAL VITAMINS W/ FOLIC ACID TABLET (FP) PO SCH (10:01)
[2019-12-26] MEDS: BACITRACIN 0.9 GM PACKET TP SCH ×2 (10:02→21:25)
[2019-12-26] MEDS: NICOTINE POLACRILEX 2 MG GUM BUC PRN (10:03)
[2019-12-26] MEDS ORDERED: PT OWN MED DRAWER 7, Y5N ONE (19:13)
[2019-12-26] MEDS: AMITRIPTYLINE HCL 25 MG TABLET PO SCH (21:24)
[2019-12-26] MEDS: THIAMINE HCL 100 MG TABLET (FP) PO SCH (21:24)
[2019-12-26] MEDS: QUEtiapine FUMARATE 400 MG TABLET PO SCH (21:24)
[2019-12-26] MEDS: MELATONIN 5 MG TABLETS PO SCH (21:25)
[2019-12-27] MEDS ORDERED: METHADONE HCL 10 MG TABLET PO SCH (06:00)
[2019-12-27] MEDS ORDERED: METHADONE HCL 40 MG DISPERSABLE TABLET ONE (06:10)
[2019-12-27] MEDS ORDERED: METHADONE HCL 5 MG TABLET ONE (06:10)
[2019-12-27] MEDS: METHADONE 120 MG, METHADONE 5 MG PO SCH (06:12)
[2019-12-27] MEDS: GABAPENTIN 300 MG CAPSULE PO SCH ×3 (06:13→21:18)
[2019-12-27] MEDS: NICOTINE POLACRILEX 2 MG GUM BUC PRN ×2 (07:12→10:06)
[2019-12-27] MEDS: PRENATAL VITAMINS W/ FOLIC ACID TABLET (FP) PO SCH (10:05)
[2019-12-27] MEDS: NICOTINE 7 MG/24 HOURS TOPICAL PATCH TD SCH (10:05)
[2019-12-27] MEDS: cloNIDine HCL 0.1 MG TABLET PO SCH ×2 (10:05→21:15)
[2019-12-27] MEDS ORDERED: PT OWN MED DRAWER 7, Y5N ONE (10:05)
[2019-12-27] MEDS: BACITRACIN 0.9 GM PACKET TP SCH ×2 (10:05→21:36)
--- NOTE | 2019-12-27 10:57 | PN ---
S Progress Note (SOAP) Subjective: Pt c/o right ankle pain stating "I fell one month ago but did not go to the hospital. I have fallen several times on the outside. I want you to do Xray to check my ankle". Objective: 12/27/19 10:53 Vital Signs - 24 hr 12/26/19 12/26/19 12/26/19 14:43 20:35 21:37 Temperature Pulse Rate 71 Respiratory Rate Blood Pressure 162/98 O2 Sat by Pulse 98 100 Oximetry (%) 12/27/19 12/27/19 06:10 09:37 Temperature 96.9 F L Pulse Rate 53 L 102 H Respiratory 20 Rate Blood Pressure 113/78 131/73 O2 Sat by Pulse 100 Oximetry (%) Alert o x 3 nad oob ambulating with steady gait Extremities:skin intact gomez. no redness/swelling; Right ankle with no obvious swelling noted, visually comparable to left ankle. Active ROM all gomez. ankle joints Assessment: 12/27/19 10:55 S/P Fall (pt verbal hx of fall a month ago before admission here) Plan: AIRAM Bandage apply prn to right ankle. winsome Elder apply BId to right ankle.
[2019-12-27] MEDS: THIAMINE HCL 100 MG TABLET (FP) PO SCH (21:15)
[2019-12-27] MEDS: SUVOREXANT 15 MG TABLET PO PRN (21:16)
[2019-12-27] MEDS: QUEtiapine FUMARATE 400 MG TABLET PO SCH (21:16)
[2019-12-27] MEDS: AMITRIPTYLINE HCL 25 MG TABLET PO SCH (21:16)
[2019-12-27] MEDS: MELATONIN 5 MG TABLETS PO SCH (21:18)
[2019-12-28] MEDS ORDERED: METHADONE HCL 5 MG TABLET ONE (05:17)
[2019-12-28] MEDS ORDERED: METHADONE HCL 40 MG DISPERSABLE TABLET ONE (05:18)
[2019-12-28] MEDS: METHADONE 120 MG, METHADONE 5 MG PO SCH (06:38)
[2019-12-28] MEDS: GABAPENTIN 300 MG CAPSULE PO SCH ×3 (06:39→21:30)
[2019-12-28] MEDS: NICOTINE 7 MG/24 HOURS TOPICAL PATCH TD SCH (09:48)
[2019-12-28] MEDS: cloNIDine HCL 0.1 MG TABLET PO SCH ×2 (09:48→21:30)
[2019-12-28] MEDS: BACITRACIN 0.9 GM PACKET TP SCH ×2 (09:48→21:32)
[2019-12-28] MEDS: ACETAMINOPHEN 325 MG TABLET (FP) PO PRN ×2 (09:49→21:29)
[2019-12-28] MEDS: PRENATAL VITAMINS W/ FOLIC ACID TABLET (FP) PO SCH (09:49)
[2019-12-28] MEDS: NICOTINE POLACRILEX 2 MG GUM BUC PRN (09:51)
[2019-12-28] MEDS: QUEtiapine FUMARATE 400 MG TABLET PO SCH (21:30)
[2019-12-28] MEDS: AMITRIPTYLINE HCL 25 MG TABLET PO SCH (21:30)
[2019-12-28] MEDS: THIAMINE HCL 100 MG TABLET (FP) PO SCH (21:31)
[2019-12-28] MEDS: MELATONIN 5 MG TABLETS PO SCH (21:32)
[2019-12-28] MEDS: SUVOREXANT 15 MG TABLET PO PRN (22:20)
[2019-12-29] MEDS ORDERED: METHADONE HCL 40 MG DISPERSABLE TABLET ONE (03:20)
[2019-12-29] MEDS ORDERED: METHADONE HCL 5 MG TABLET ONE (03:20)
[2019-12-29] MEDS: METHADONE 120 MG, METHADONE 5 MG PO SCH (06:42)
[2019-12-29] MEDS: ACETAMINOPHEN 325 MG TABLET (FP) PO PRN ×2 (06:43→14:09)
[2019-12-29] MEDS: GABAPENTIN 300 MG CAPSULE PO SCH ×3 (06:43→21:03)
[2019-12-29] MEDS: NICOTINE 7 MG/24 HOURS TOPICAL PATCH TD SCH (10:28)
[2019-12-29] MEDS: BACITRACIN 0.9 GM PACKET TP SCH ×2 (10:29→21:02)
[2019-12-29] MEDS: cloNIDine HCL 0.1 MG TABLET PO SCH ×2 (10:29→21:02)
[2019-12-29] MEDS: NICOTINE POLACRILEX 2 MG GUM BUC PRN ×2 (10:30→19:26)
[2019-12-29] MEDS: PRENATAL VITAMINS W/ FOLIC ACID TABLET (FP) PO SCH (10:31)
[2019-12-29 17:45] LABS: EPI CELLS 4 /uL (0-25.1); HYALINE CASTS 4 /uL (0-3.1); URINE APPEARANCE CLOUDY; URINE BACTERIA >9,000 /uL (0-1359); URINE BILIRUBIN NEGATIVE (NEGATIVE); URINE COLOR YELLOW; URINE GLUCOSE (UA) NEGATIVE (NEGATIVE); URINE KETONE NEGATIVE (NEGATIVE); URINE LEUK ESTERASE 2+ (NEGATIVE); URINE NITRITE POSITIVE (NEGATIVE); URINE PROTEIN NEGATIVE (NEGATIVE); URINE RBC 34 /uL (0-23.9); URINE WBC 845 /uL (0-25.8)
[2019-12-29] MEDS ORDERED: PT OWN MED DRAWER 7, Y5N ONE (20:53)
[2019-12-29] MEDS: QUEtiapine FUMARATE 400 MG TABLET PO SCH (21:01)
[2019-12-29] MEDS: AMITRIPTYLINE HCL 25 MG TABLET PO SCH (21:02)
[2019-12-29] MEDS: THIAMINE HCL 100 MG TABLET (FP) PO SCH (21:02)
[2019-12-29] MEDS: MELATONIN 5 MG TABLETS PO SCH (21:03)
[2019-12-29] MEDS: SUVOREXANT 15 MG TABLET PO PRN (21:03)
--- NOTE | 2019-12-29 22:28 | PN ---
[facility] Progress Note Note: Abnormal Lab Results 12/29/19 17:03 Urine Blood 1+ H Urine Nitrite Positive H Ur Leukocyte Esterase 2+ H Vital Signs - 24 hr 12/29/19 12/29/19 12/29/19 06:25 08:30 14:30 Temperature 101.4 F H 98.2 F Pulse Rate 108 H 107 H Respiratory 16 18 Rate Blood Pressure 138/83 137/80 O2 Sat by Pulse 100 99 Oximetry (%) 12/29/19 12/29/19 21:29 21:46 Temperature 102.3 F H Pulse Rate 62 Respiratory 18 Rate Blood Pressure 140/82 O2 Sat by Pulse 96 Oximetry (%) P Bactrim bid x 5 days
[2019-12-29] MEDS: SULFAMETHOXAZOLE/TRIMETHOPRIM 800MG/160MG D.S. TABLET PO SCH (22:59)
[2019-12-30] MEDS ORDERED: METHADONE HCL 5 MG TABLET ONE (03:09)
[2019-12-30] MEDS ORDERED: METHADONE HCL 40 MG DISPERSABLE TABLET ONE (03:10)
[2019-12-30] MEDS: METHADONE 120 MG, METHADONE 5 MG PO SCH (06:41)
[2019-12-30] MEDS: GABAPENTIN 300 MG CAPSULE PO SCH ×3 (06:42→21:25)
[2019-12-30] MEDS: ACETAMINOPHEN 325 MG TABLET (FP) PO PRN ×2 (07:02→18:46)
[2019-12-30] MEDS: NICOTINE 7 MG/24 HOURS TOPICAL PATCH TD SCH (09:21)
[2019-12-30] MEDS: PRENATAL VITAMINS W/ FOLIC ACID TABLET (FP) PO SCH (09:21)
[2019-12-30] MEDS: SULFAMETHOXAZOLE/TRIMETHOPRIM 800MG/160MG D.S. TABLET PO SCH ×2 (09:21→21:25)
[2019-12-30] MEDS: cloNIDine HCL 0.1 MG TABLET PO SCH ×2 (09:21→21:25)
[2019-12-30] MEDS: BACITRACIN 0.9 GM PACKET TP SCH ×2 (09:22→21:29)
[2019-12-30] MEDS: NICOTINE POLACRILEX 2 MG GUM BUC PRN ×2 (09:23→21:29)
[2019-12-30] MEDS ORDERED: PT OWN MED DRAWER 7, Y5N ONE (20:23)
[2019-12-30] MEDS: AMITRIPTYLINE HCL 25 MG TABLET PO SCH (21:25)
[2019-12-30] MEDS: QUEtiapine FUMARATE 400 MG TABLET PO SCH (21:26)
[2019-12-30] MEDS: SUVOREXANT 15 MG TABLET PO PRN (21:28)
[2019-12-30] MEDS: MELATONIN 5 MG TABLETS PO SCH (21:28)
[2019-12-30] MEDS: THIAMINE HCL 100 MG TABLET (FP) PO SCH (21:29)
[2019-12-31] MEDS ORDERED: METHADONE HCL 40 MG DISPERSABLE TABLET ONE (03:20)
[2019-12-31] MEDS ORDERED: METHADONE HCL 5 MG TABLET ONE (03:20)
[2019-12-31] MEDS: GABAPENTIN 300 MG CAPSULE PO SCH ×3 (06:37→21:24)
[2019-12-31] MEDS: ACETAMINOPHEN 325 MG TABLET (FP) PO PRN ×3 (06:37→21:55)
[2019-12-31] MEDS: METHADONE 120 MG, METHADONE 5 MG PO SCH (06:38)
[2019-12-31] MEDS: PRENATAL VITAMINS W/ FOLIC ACID TABLET (FP) PO SCH (10:07)
[2019-12-31] MEDS: BACITRACIN 0.9 GM PACKET TP SCH ×2 (10:07→21:24)
[2019-12-31] MEDS: cloNIDine HCL 0.1 MG TABLET PO SCH ×2 (10:07→21:21)
[2019-12-31] MEDS: NICOTINE 7 MG/24 HOURS TOPICAL PATCH TD SCH (10:07)
[2019-12-31] MEDS: SULFAMETHOXAZOLE/TRIMETHOPRIM 800MG/160MG D.S. TABLET PO SCH ×2 (10:07→21:21)
[2019-12-31] MEDS: NICOTINE POLACRILEX 2 MG GUM BUC PRN (10:10)
[2019-12-31] MEDS ORDERED: PT OWN MED DRAWER 7, Y5N ONE (19:04)
[2019-12-31] MEDS: AMITRIPTYLINE HCL 25 MG TABLET PO SCH (21:21)
[2019-12-31] MEDS: QUEtiapine FUMARATE 400 MG TABLET PO SCH (21:21)
[2019-12-31] MEDS: THIAMINE HCL 100 MG TABLET (FP) PO SCH (21:21)
[2019-12-31] MEDS: SUVOREXANT 15 MG TABLET PO PRN (21:23)
[2019-12-31] MEDS: MELATONIN 5 MG TABLETS PO SCH (21:24)
[2020-01-01] MEDS ORDERED: METHADONE HCL 5 MG TABLET ONE (05:11)
[2020-01-01] MEDS ORDERED: METHADONE HCL 40 MG DISPERSABLE TABLET ONE (05:11)
[2020-01-01] MEDS: METHADONE 120 MG, METHADONE 5 MG PO SCH (07:03)
[2020-01-01] MEDS: GABAPENTIN 300 MG CAPSULE PO SCH ×3 (07:03→21:34)
[2020-01-01] MEDS: NICOTINE 7 MG/24 HOURS TOPICAL PATCH TD SCH (10:02)
[2020-01-01] MEDS: SULFAMETHOXAZOLE/TRIMETHOPRIM 800MG/160MG D.S. TABLET PO SCH (10:02)
[2020-01-01] MEDS: cloNIDine HCL 0.1 MG TABLET PO SCH ×2 (10:02→21:34)
[2020-01-01] MEDS: PRENATAL VITAMINS W/ FOLIC ACID TABLET (FP) PO SCH (10:03)
[2020-01-01] MEDS: BACITRACIN 0.9 GM PACKET TP SCH ×2 (10:03→21:35)
--- NOTE | 2020-01-01 11:58 | PN ---
[facility] Progress Note Note: Microbiology 12/29/19 17:03 Result Review. Urine - Urine Clean Catch Urine Culture - Preliminary Escherichia Coli Esbl Reconciliation Specialist Non Lactose Fermenting Gnb#2 Vital Signs - 24 hr 12/31/19 12/31/19 12/31/19 14:18 15:49 20:36 Temperature 100.4 F H 98.2 F Pulse Rate 111 H Respiratory 18 Rate Blood Pressure 127/77 O2 Sat by Pulse 98 98 Oximetry (%) 12/31/19 12/31/19 01/01/20 21:10 22:37 06:28 Temperature 100.4 F H 98.6 F 98.6 F Pulse Rate 110 H Respiratory 20 Rate Blood Pressure 132/80 O2 Sat by Pulse 98 Oximetry (%) 01/01/20 09:30 Temperature 97.1 F L Pulse Rate 112 H Respiratory 18 Rate Blood Pressure 133/80 O2 Sat by Pulse Oximetry (%) two organisms isolated; E. Coli with second organism pending. pt currently on Bactrim ds x [address] Gupta started on 12/29/19 Awaiting second organism identification and sensitivity test.
[2020-01-01] MEDS ORDERED: PT OWN MED DRAWER 7, Y5N ONE (16:16)
[2020-01-01] MEDS: AMITRIPTYLINE HCL 25 MG TABLET PO SCH (21:34)
[2020-01-01] MEDS: THIAMINE HCL 100 MG TABLET (FP) PO SCH (21:34)
[2020-01-01] MEDS: QUEtiapine FUMARATE 400 MG TABLET PO SCH (21:35)
[2020-01-01] MEDS: MELATONIN 5 MG TABLETS PO SCH (21:35)
[2020-01-02] MEDS: GABAPENTIN 300 MG CAPSULE PO SCH ×3 (06:47→21:36)
[2020-01-02] MEDS ORDERED: PT OWN MED DRAWER 7, Y5N ONE (06:47)
[2020-01-02] MEDS ORDERED: METHADONE HCL 10 MG TABLET PO SCH (07:05)
[2020-01-02] MEDS: METHADONE 120 MG, METHADONE 5 MG PO SCH (07:27)
[2020-01-02] MEDS ORDERED: METHADONE HCL 40 MG DISPERSABLE TABLET ONE (07:27)
[2020-01-02] MEDS ORDERED: METHADONE HCL 5 MG TABLET ONE (07:27)
[2020-01-02] MEDS: PRENATAL VITAMINS W/ FOLIC ACID TABLET (FP) PO SCH (10:02)
[2020-01-02] MEDS: NICOTINE 7 MG/24 HOURS TOPICAL PATCH TD SCH (10:02)
[2020-01-02] MEDS: cloNIDine HCL 0.1 MG TABLET PO SCH ×2 (10:02→21:36)
[2020-01-02] MEDS: ACETAMINOPHEN 325 MG TABLET (FP) PO PRN (10:03)
[2020-01-02] MEDS: NICOTINE POLACRILEX 2 MG GUM BUC PRN (10:05)
[2020-01-02] MEDS: BACITRACIN 0.9 GM PACKET TP SCH (10:44)
[2020-01-02] MEDS: QUEtiapine FUMARATE 400 MG TABLET PO SCH (21:35)
[2020-01-02] MEDS: THIAMINE HCL 100 MG TABLET (FP) PO SCH (21:35)
[2020-01-02] MEDS: AMITRIPTYLINE HCL 25 MG TABLET PO SCH (21:36)
[2020-01-02] MEDS: MELATONIN 5 MG TABLETS PO SCH (21:36)
[2020-01-03] MEDS ORDERED: METHADONE HCL 5 MG TABLET ONE (03:54)
[2020-01-03] MEDS ORDERED: METHADONE HCL 40 MG DISPERSABLE TABLET ONE (03:54)
[2020-01-03] MEDS ORDERED: PT OWN MED DRAWER 7, Y5N ONE ×2 (04:03→10:08)
[2020-01-03] MEDS ORDERED: METHADONE HCL 10 MG TABLET PO SCH (06:00)
[2020-01-03] MEDS: GABAPENTIN 300 MG CAPSULE PO SCH ×3 (06:37→21:32)
[2020-01-03] MEDS: METHADONE 120 MG, METHADONE 5 MG PO SCH (06:37)
--- NOTE | 2020-01-03 10:01 | PN ---
S Progress Note Note: Microbiology urine lab result: Microbiology 12/29/19 17:03 Urine - Urine Clean Catch Urine Culture - Final Escherichia Coli Esbl Tire Retreader Jasmina Robles Pt now on Levaquin since 01/01/20 which is sensitive to both organisms.
[2020-01-03] MEDS: cloNIDine HCL 0.1 MG TABLET PO SCH ×2 (10:06→21:30)
[2020-01-03] MEDS: NICOTINE 7 MG/24 HOURS TOPICAL PATCH TD SCH (10:08)
[2020-01-03] MEDS: NICOTINE POLACRILEX 2 MG GUM BUC PRN (10:09)
[2020-01-03] MEDS: PRENATAL VITAMINS W/ FOLIC ACID TABLET (FP) PO SCH (10:09)
[2020-01-03] MEDS: THIAMINE HCL 100 MG TABLET (FP) PO SCH (21:30)
[2020-01-03] MEDS: QUEtiapine FUMARATE 400 MG TABLET PO SCH (21:30)
[2020-01-03] MEDS: AMITRIPTYLINE HCL 25 MG TABLET PO SCH (21:31)
[2020-01-03] MEDS: MELATONIN 5 MG TABLETS PO SCH (21:32)
[2020-01-04] MEDS ORDERED: PT OWN MED DRAWER 7, Y5N ONE ×3 (02:46→19:50)
[2020-01-04] MEDS ORDERED: METHADONE HCL 5 MG TABLET ONE (05:47)
[2020-01-04] MEDS ORDERED: METHADONE HCL 40 MG DISPERSABLE TABLET ONE (05:48)
[2020-01-04] MEDS: GABAPENTIN 300 MG CAPSULE PO SCH ×3 (06:02→21:28)
[2020-01-04] MEDS: METHADONE 120 MG, METHADONE 5 MG PO SCH (06:02)
[2020-01-04] MEDS: NICOTINE 7 MG/24 HOURS TOPICAL PATCH TD SCH (09:55)
[2020-01-04] MEDS: cloNIDine HCL 0.1 MG TABLET PO SCH ×2 (09:55→21:28)
[2020-01-04] MEDS: PRENATAL VITAMINS W/ FOLIC ACID TABLET (FP) PO SCH (09:56)
[2020-01-04] MEDS: NICOTINE POLACRILEX 2 MG GUM BUC PRN (09:56)
[2020-01-04] MEDS: AMITRIPTYLINE HCL 25 MG TABLET PO SCH (21:28)
[2020-01-04] MEDS: THIAMINE HCL 100 MG TABLET (FP) PO SCH (21:28)
[2020-01-04] MEDS: MELATONIN 5 MG TABLETS PO SCH (21:29)
[2020-01-04] MEDS: QUEtiapine FUMARATE 400 MG TABLET PO SCH (21:30)
[2020-01-04] MEDS: SUVOREXANT 10 MG TABLET PO PRN (21:31)
[2020-01-05] MEDS ORDERED: METHADONE HCL 5 MG TABLET ONE (05:31)
[2020-01-05] MEDS ORDERED: PT OWN MED DRAWER 7, Y5N ONE (05:32)
[2020-01-05] MEDS ORDERED: METHADONE HCL 40 MG DISPERSABLE TABLET ONE (05:32)
[2020-01-05] MEDS: METHADONE 120 MG, METHADONE 5 MG PO SCH (06:21)
[2020-01-05] MEDS: GABAPENTIN 300 MG CAPSULE PO SCH ×3 (06:22→21:19)
[2020-01-05] MEDS: NICOTINE 7 MG/24 HOURS TOPICAL PATCH TD SCH (10:04)
[2020-01-05] MEDS: cloNIDine HCL 0.1 MG TABLET PO SCH ×2 (10:04→21:19)
[2020-01-05] MEDS: PRENATAL VITAMINS W/ FOLIC ACID TABLET (FP) PO SCH (10:05)
[2020-01-05] MEDS: SUVOREXANT 10 MG TABLET PO PRN (21:19)
[2020-01-05] MEDS: THIAMINE HCL 100 MG TABLET (FP) PO SCH (21:19)
[2020-01-05] MEDS: AMITRIPTYLINE HCL 25 MG TABLET PO SCH (21:19)
[2020-01-05] MEDS: MELATONIN 5 MG TABLETS PO SCH (21:20)
[2020-01-05] MEDS: QUEtiapine FUMARATE 400 MG TABLET PO SCH (21:21)
[2020-01-06] MEDS ORDERED: METHADONE HCL 5 MG TABLET ONE (05:28)
[2020-01-06] MEDS ORDERED: METHADONE HCL 40 MG DISPERSABLE TABLET ONE (05:29)
[2020-01-06] MEDS: METHADONE 120 MG, METHADONE 5 MG PO SCH (06:36)
[2020-01-06] MEDS: GABAPENTIN 300 MG CAPSULE PO SCH ×3 (06:36→21:08)
[2020-01-06] MEDS: PRENATAL VITAMINS W/ FOLIC ACID TABLET (FP) PO SCH (09:51)
[2020-01-06] MEDS: NICOTINE 7 MG/24 HOURS TOPICAL PATCH TD SCH (09:51)
[2020-01-06] MEDS: cloNIDine HCL 0.1 MG TABLET PO SCH ×2 (09:51→21:08)
[2020-01-06] MEDS: NICOTINE POLACRILEX 2 MG GUM BUC PRN (09:52)
[2020-01-06] MEDS: THIAMINE HCL 100 MG TABLET (FP) PO SCH (21:08)
[2020-01-06] MEDS: QUEtiapine FUMARATE 400 MG TABLET PO SCH (21:08)
[2020-01-06] MEDS: AMITRIPTYLINE HCL 25 MG TABLET PO SCH (21:08)
[2020-01-06] MEDS: MELATONIN 5 MG TABLETS PO SCH (21:10)
[2020-01-06] MEDS: SUVOREXANT 10 MG TABLET PO PRN (21:10)
[2020-01-07] MEDS ORDERED: METHADONE HCL 40 MG DISPERSABLE TABLET ONE (05:27)
[2020-01-07] MEDS ORDERED: METHADONE HCL 5 MG TABLET ONE (05:27)
[2020-01-07] MEDS: METHADONE 120 MG, METHADONE 5 MG PO SCH (06:24)
[2020-01-07] MEDS: GABAPENTIN 300 MG CAPSULE PO SCH ×3 (06:24→21:25)
[2020-01-07] MEDS: NICOTINE 7 MG/24 HOURS TOPICAL PATCH TD SCH (10:04)
[2020-01-07] MEDS: PRENATAL VITAMINS W/ FOLIC ACID TABLET (FP) PO SCH (10:04)
[2020-01-07] MEDS: cloNIDine HCL 0.1 MG TABLET PO SCH ×2 (10:04→21:25)
[2020-01-07] MEDS: NICOTINE POLACRILEX 2 MG GUM BUC PRN (10:06)
[2020-01-07] MEDS ORDERED: PT OWN MED DRAWER 7, Y5N ONE (19:32)
[2020-01-07] MEDS: SUVOREXANT 10 MG TABLET PO PRN (21:25)
[2020-01-07] MEDS: THIAMINE HCL 100 MG TABLET (FP) PO SCH (21:25)
[2020-01-07] MEDS: AMITRIPTYLINE HCL 25 MG TABLET PO SCH (21:25)
[2020-01-07] MEDS: QUEtiapine FUMARATE 400 MG TABLET PO SCH (21:25)
[2020-01-07] MEDS: MELATONIN 5 MG TABLETS PO SCH (21:26)
[2020-01-08] MEDS ORDERED: METHADONE HCL 5 MG TABLET ONE (03:21)
[2020-01-08] MEDS ORDERED: PT OWN MED DRAWER 7, Y5N ONE (03:22)
[2020-01-08] MEDS ORDERED: METHADONE HCL 40 MG DISPERSABLE TABLET ONE (03:22)
[2020-01-08] MEDS: METHADONE 120 MG, METHADONE 5 MG PO SCH (07:13)
[2020-01-08] MEDS: GABAPENTIN 300 MG CAPSULE PO SCH ×3 (07:14→21:21)
[2020-01-08] MEDS: NICOTINE 7 MG/24 HOURS TOPICAL PATCH TD SCH (09:45)
[2020-01-08] MEDS: cloNIDine HCL 0.1 MG TABLET PO SCH ×2 (09:45→21:22)
[2020-01-08] MEDS: PRENATAL VITAMINS W/ FOLIC ACID TABLET (FP) PO SCH (09:46)
--- NOTE | 2020-01-08 15:30 | PN ---
S Progress Note Note: c/o itchy neck. Vital Signs - 24 hr 01/07/20 01/07/20 01/08/20 20:46 21:35 07:21 Temperature 97.5 F L Pulse Rate 101 H 102 H Respiratory 16 Rate Blood Pressure 118/83 114/80 O2 Sat by Pulse 100 100 Oximetry (%) 01/08/20 08:50 Temperature Pulse Rate 116 H Respiratory Rate Blood Pressure 132/86 O2 Sat by Pulse Oximetry (%) Alert o x 3 nad oob ambulating with steady gait Skin;small area of red macular rash on back of neck Skin irritation hydrocortisone cream 1% apply to affected area bid x 5 days
[2020-01-08] MEDS: THIAMINE HCL 100 MG TABLET (FP) PO SCH (21:22)
[2020-01-08] MEDS: AMITRIPTYLINE HCL 25 MG TABLET PO SCH (21:22)
[2020-01-08] MEDS: MELATONIN 5 MG TABLETS PO SCH (21:22)
[2020-01-08] MEDS: SUVOREXANT 10 MG TABLET PO PRN (21:24)
[2020-01-08] MEDS: HYDROCORTISONE 1% TOPICAL CREAM 30 GM TUBE TP SCH (21:53)
[2020-01-08] MEDS: QUEtiapine FUMARATE 400 MG TABLET PO SCH (21:53)
[2020-01-09] MEDS ORDERED: METHADONE HCL 5 MG TABLET ONE (06:29)
[2020-01-09] MEDS ORDERED: METHADONE HCL 40 MG DISPERSABLE TABLET ONE (06:29)
[2020-01-09] MEDS: METHADONE 120 MG, METHADONE 5 MG PO SCH (06:32)
[2020-01-09] MEDS: GABAPENTIN 300 MG CAPSULE PO SCH ×3 (06:33→21:16)
[2020-01-09] MEDS: cloNIDine HCL 0.1 MG TABLET PO SCH ×2 (09:44→21:16)
[2020-01-09] MEDS: PRENATAL VITAMINS W/ FOLIC ACID TABLET (FP) PO SCH (09:45)
[2020-01-09] MEDS: NICOTINE 7 MG/24 HOURS TOPICAL PATCH TD SCH (09:45)
[2020-01-09] MEDS: HYDROCORTISONE 1% TOPICAL CREAM 30 GM TUBE TP SCH ×2 (09:46→21:18)
[2020-01-09] MEDS: AMITRIPTYLINE HCL 25 MG TABLET PO SCH (21:16)
[2020-01-09] MEDS: SUVOREXANT 10 MG TABLET PO PRN (21:16)
[2020-01-09] MEDS: THIAMINE HCL 100 MG TABLET (FP) PO SCH (21:16)
[2020-01-09] MEDS: QUEtiapine FUMARATE 400 MG TABLET PO SCH (21:17)
[2020-01-09] MEDS: MELATONIN 5 MG TABLETS PO SCH (21:18)
[2020-01-10] MEDS ORDERED: METHADONE HCL 40 MG DISPERSABLE TABLET ONE (03:04)
[2020-01-10] MEDS ORDERED: METHADONE HCL 5 MG TABLET ONE (03:04)
[2020-01-10] MEDS: METHADONE 120 MG, METHADONE 5 MG PO SCH (06:49)
[2020-01-10] MEDS: GABAPENTIN 300 MG CAPSULE PO SCH ×3 (06:49→21:27)
[2020-01-10] MEDS ORDERED: PT OWN MED DRAWER 7, Y5N ONE ×2 (08:47→19:23)
[2020-01-10] MEDS: PRENATAL VITAMINS W/ FOLIC ACID TABLET (FP) PO SCH (09:23)
[2020-01-10] MEDS: cloNIDine HCL 0.1 MG TABLET PO SCH ×2 (09:23→21:27)
[2020-01-10] MEDS: NICOTINE 7 MG/24 HOURS TOPICAL PATCH TD SCH (09:24)
[2020-01-10] MEDS: HYDROCORTISONE 1% TOPICAL CREAM 30 GM TUBE TP SCH ×2 (09:24→21:29)
[2020-01-10] MEDS: NICOTINE POLACRILEX 2 MG GUM BUC PRN (09:24)
[2020-01-10] MEDS: THIAMINE HCL 100 MG TABLET (FP) PO SCH (21:27)
[2020-01-10] MEDS: AMITRIPTYLINE HCL 25 MG TABLET PO SCH (21:27)
[2020-01-10] MEDS: SUVOREXANT 10 MG TABLET PO PRN (21:27)
[2020-01-10] MEDS: QUEtiapine FUMARATE 400 MG TABLET PO SCH (21:28)
[2020-01-10] MEDS: MELATONIN 5 MG TABLETS PO SCH (21:29)
[2020-01-11] MEDS ORDERED: METHADONE HCL 5 MG TABLET ONE (06:05)
[2020-01-11] MEDS ORDERED: METHADONE HCL 40 MG DISPERSABLE TABLET ONE (06:06)
[2020-01-11] MEDS: GABAPENTIN 300 MG CAPSULE PO SCH ×3 (06:23→21:34)
[2020-01-11] MEDS: METHADONE 120 MG, METHADONE 5 MG PO SCH (06:23)
[2020-01-11] MEDS: NICOTINE 7 MG/24 HOURS TOPICAL PATCH TD SCH (09:51)
[2020-01-11] MEDS: cloNIDine HCL 0.1 MG TABLET PO SCH ×2 (09:51→21:34)
[2020-01-11] MEDS: PRENATAL VITAMINS W/ FOLIC ACID TABLET (FP) PO SCH (09:51)
[2020-01-11] MEDS: HYDROCORTISONE 1% TOPICAL CREAM 30 GM TUBE TP SCH ×2 (09:51→21:35)
[2020-01-11] MEDS: NICOTINE POLACRILEX 2 MG GUM BUC PRN (09:52)
--- NOTE | 2020-01-11 11:22 | PN ---
[facility] Progress Note Note: Pt reports nipple piecing and c/o slight soreness to nipple. Denies drainage or bleeding. Vital Signs - 24 hr 01/10/20 01/10/20 01/10/20 13:26 20:42 21:15 Temperature Pulse Rate 87 Respiratory Rate Blood Pressure 129/78 O2 Sat by Pulse 96 100 Oximetry (%) 01/11/20 01/11/20 06:20 09:40 Temperature 96.9 F L Pulse Rate 95 H 94 H Respiratory 18 Rate Blood Pressure 122/68 122/75 O2 Sat by Pulse 100 Oximetry (%) Alert o x 3 nad oob ambulating with steady gait Breast not examined-deferred s/p nipple piercing(pt's verbal hx) Bacitracin ointment apply as directed
[2020-01-11] MEDS: BACITRACIN 0.9 GM PACKET TP SCH ×2 (12:07→21:35)
[2020-01-11] MEDS: QUEtiapine FUMARATE 400 MG TABLET PO SCH (21:34)
[2020-01-11] MEDS: AMITRIPTYLINE HCL 25 MG TABLET PO SCH (21:34)
[2020-01-11] MEDS: MELATONIN 5 MG TABLETS PO SCH (21:34)
[2020-01-11] MEDS: THIAMINE HCL 100 MG TABLET (FP) PO SCH (21:35)
[2020-01-11] MEDS: SUVOREXANT 10 MG TABLET PO PRN (21:36)
[2020-01-12] MEDS ORDERED: METHADONE HCL 40 MG DISPERSABLE TABLET ONE (03:15)
[2020-01-12] MEDS ORDERED: METHADONE HCL 5 MG TABLET ONE (03:15)
[2020-01-12] MEDS: METHADONE 120 MG, METHADONE 5 MG PO SCH (06:36)
[2020-01-12] MEDS: GABAPENTIN 300 MG CAPSULE PO SCH ×3 (06:37→22:01)
[2020-01-12] MEDS: cloNIDine HCL 0.1 MG TABLET PO SCH ×2 (09:36→22:00)
[2020-01-12] MEDS: NICOTINE 7 MG/24 HOURS TOPICAL PATCH TD SCH (09:36)
[2020-01-12] MEDS: BACITRACIN 0.9 GM PACKET TP SCH ×2 (09:36→22:02)
[2020-01-12] MEDS: PRENATAL VITAMINS W/ FOLIC ACID TABLET (FP) PO SCH (09:37)
[2020-01-12] MEDS: HYDROCORTISONE 1% TOPICAL CREAM 30 GM TUBE TP SCH ×2 (09:37→22:02)
[2020-01-12] MEDS: NICOTINE POLACRILEX 2 MG GUM BUC PRN (09:39)
[2020-01-12] MEDS: AMITRIPTYLINE HCL 25 MG TABLET PO SCH (22:00)
[2020-01-12] MEDS ORDERED: PT OWN MED DRAWER 7, Y5N ONE (22:00)
[2020-01-12] MEDS: QUEtiapine FUMARATE 400 MG TABLET PO SCH (22:01)
[2020-01-12] MEDS: MELATONIN 5 MG TABLETS PO SCH (22:02)
[2020-01-12] MEDS: THIAMINE HCL 100 MG TABLET (FP) PO SCH (22:03)
[2020-01-12] MEDS: SUVOREXANT 10 MG TABLET PO PRN (22:03)
[2020-01-13] MEDS ORDERED: METHADONE HCL 5 MG TABLET ONE (03:13)
[2020-01-13] MEDS ORDERED: METHADONE HCL 40 MG DISPERSABLE TABLET ONE (03:14)
[2020-01-13] MEDS: METHADONE 120 MG, METHADONE 5 MG PO SCH (06:57)
[2020-01-13] MEDS: GABAPENTIN 300 MG CAPSULE PO SCH ×3 (06:58→21:17)
[2020-01-13] MEDS: NICOTINE 7 MG/24 HOURS TOPICAL PATCH TD SCH (09:52)
[2020-01-13] MEDS: BACITRACIN 0.9 GM PACKET TP SCH ×2 (09:52→21:16)
[2020-01-13] MEDS: cloNIDine HCL 0.1 MG TABLET PO SCH ×2 (09:52→21:16)
[2020-01-13] MEDS: PRENATAL VITAMINS W/ FOLIC ACID TABLET (FP) PO SCH (09:53)
[2020-01-13] MEDS: HYDROCORTISONE 1% TOPICAL CREAM 30 GM TUBE TP SCH (09:53)
[2020-01-13] MEDS: NICOTINE POLACRILEX 2 MG GUM BUC PRN (09:53)
[2020-01-13] MEDS: AMITRIPTYLINE HCL 25 MG TABLET PO SCH (21:17)
[2020-01-13] MEDS: MELATONIN 5 MG TABLETS PO SCH (21:17)
[2020-01-13] MEDS: THIAMINE HCL 100 MG TABLET (FP) PO SCH (21:17)
[2020-01-13] MEDS: QUEtiapine FUMARATE 400 MG TABLET PO SCH (21:17)
[2020-01-13] MEDS: SUVOREXANT 10 MG TABLET PO PRN (21:20)
[2020-01-14] MEDS ORDERED: METHADONE HCL 5 MG TABLET ONE (03:19)
[2020-01-14] MEDS ORDERED: METHADONE HCL 40 MG DISPERSABLE TABLET ONE (03:19)
[2020-01-14] MEDS: METHADONE 120 MG, METHADONE 5 MG PO SCH (06:52)
[2020-01-14] MEDS: GABAPENTIN 300 MG CAPSULE PO SCH ×3 (06:52→21:14)
[2020-01-14] MEDS: NICOTINE 7 MG/24 HOURS TOPICAL PATCH TD SCH (10:01)
[2020-01-14] MEDS: BACITRACIN 0.9 GM PACKET TP SCH ×2 (10:01→21:14)
[2020-01-14] MEDS: cloNIDine HCL 0.1 MG TABLET PO SCH ×2 (10:02→21:16)
[2020-01-14] MEDS: PRENATAL VITAMINS W/ FOLIC ACID TABLET (FP) PO SCH (10:02)
[2020-01-14] MEDS: NICOTINE POLACRILEX 2 MG GUM BUC PRN ×2 (10:02→15:54)
[2020-01-14] MEDS ORDERED: PT OWN MED DRAWER 7, Y5N ONE (15:40)
[2020-01-14] MEDS: THIAMINE HCL 100 MG TABLET (FP) PO SCH (21:13)
[2020-01-14] MEDS: SUVOREXANT 10 MG TABLET PO PRN (21:14)
[2020-01-14] MEDS: AMITRIPTYLINE HCL 25 MG TABLET PO SCH (21:14)
[2020-01-14] MEDS: QUEtiapine FUMARATE 400 MG TABLET PO SCH (21:15)
[2020-01-14] MEDS: MELATONIN 5 MG TABLETS PO SCH (21:16)
[2020-01-15] MEDS ORDERED: METHADONE HCL 5 MG TABLET ONE (05:47)
[2020-01-15] MEDS ORDERED: METHADONE HCL 40 MG DISPERSABLE TABLET ONE (05:48)
[2020-01-15] MEDS: METHADONE 120 MG, METHADONE 5 MG PO SCH (06:40)
[2020-01-15] MEDS: GABAPENTIN 300 MG CAPSULE PO SCH ×3 (06:40→21:01)
[2020-01-15] MEDS: cloNIDine HCL 0.1 MG TABLET PO SCH ×2 (09:48→21:03)
[2020-01-15] MEDS: NICOTINE 7 MG/24 HOURS TOPICAL PATCH TD SCH (09:49)
[2020-01-15] MEDS: BACITRACIN 0.9 GM PACKET TP SCH ×2 (09:49→21:01)
[2020-01-15] MEDS: NICOTINE POLACRILEX 2 MG GUM BUC PRN ×2 (09:49→14:09)
[2020-01-15] MEDS: PRENATAL VITAMINS W/ FOLIC ACID TABLET (FP) PO SCH (09:49)
[2020-01-15] MEDS: THIAMINE HCL 100 MG TABLET (FP) PO SCH (21:00)
[2020-01-15] MEDS: AMITRIPTYLINE HCL 25 MG TABLET PO SCH (21:01)
[2020-01-15] MEDS: SUVOREXANT 10 MG TABLET PO PRN (21:01)
[2020-01-15] MEDS: QUEtiapine FUMARATE 400 MG TABLET PO SCH (21:02)
[2020-01-15] MEDS: MELATONIN 5 MG TABLETS PO SCH (21:03)
[2020-01-16] MEDS ORDERED: METHADONE HCL 5 MG TABLET ONE (03:25)
[2020-01-16] MEDS ORDERED: METHADONE HCL 40 MG DISPERSABLE TABLET ONE (03:26)
[2020-01-16] MEDS: GABAPENTIN 300 MG CAPSULE PO SCH ×3 (06:46→21:31)
[2020-01-16] MEDS: METHADONE 120 MG, METHADONE 5 MG PO SCH (06:46)
[2020-01-16] MEDS: BACITRACIN 0.9 GM PACKET TP SCH ×2 (09:47→21:31)
[2020-01-16] MEDS: cloNIDine HCL 0.1 MG TABLET PO SCH ×2 (09:47→21:31)
[2020-01-16] MEDS: NICOTINE 7 MG/24 HOURS TOPICAL PATCH TD SCH (09:48)
[2020-01-16] MEDS: PRENATAL VITAMINS W/ FOLIC ACID TABLET (FP) PO SCH (09:49)
[2020-01-16] MEDS: THIAMINE HCL 100 MG TABLET (FP) PO SCH (21:31)
[2020-01-16] MEDS: AMITRIPTYLINE HCL 25 MG TABLET PO SCH (21:31)
[2020-01-16] MEDS: SUVOREXANT 10 MG TABLET PO PRN (21:31)
[2020-01-16] MEDS: QUEtiapine FUMARATE 400 MG TABLET PO SCH (21:32)
[2020-01-16] MEDS: MELATONIN 5 MG TABLETS PO SCH (21:33)
[2020-01-17] MEDS ORDERED: METHADONE HCL 5 MG TABLET ONE (03:56)
[2020-01-17] MEDS ORDERED: METHADONE HCL 40 MG DISPERSABLE TABLET ONE (03:57)
[2020-01-17] MEDS: METHADONE 120 MG, METHADONE 5 MG PO SCH (07:04)
[2020-01-17] MEDS: GABAPENTIN 300 MG CAPSULE PO SCH ×3 (07:04→21:36)
[2020-01-17] MEDS: cloNIDine HCL 0.1 MG TABLET PO SCH ×2 (09:57→21:40)
[2020-01-17] MEDS: PRENATAL VITAMINS W/ FOLIC ACID TABLET (FP) PO SCH (09:57)
[2020-01-17] MEDS: BACITRACIN 0.9 GM PACKET TP SCH ×2 (09:57→21:35)
[2020-01-17] MEDS: NICOTINE 7 MG/24 HOURS TOPICAL PATCH TD SCH (09:57)
[2020-01-17] MEDS: NICOTINE POLACRILEX 2 MG GUM BUC PRN (09:58)
[2020-01-17] MEDS: SUVOREXANT 10 MG TABLET PO PRN (21:35)
[2020-01-17] MEDS: THIAMINE HCL 100 MG TABLET (FP) PO SCH (21:35)
[2020-01-17] MEDS: AMITRIPTYLINE HCL 25 MG TABLET PO SCH (21:36)
[2020-01-17] MEDS: QUEtiapine FUMARATE 400 MG TABLET PO SCH (21:36)
[2020-01-17] MEDS: MELATONIN 5 MG TABLETS PO SCH (21:37)
[2020-01-18] MEDS ORDERED: METHADONE HCL 5 MG TABLET ONE (03:19)
[2020-01-18] MEDS ORDERED: METHADONE HCL 40 MG DISPERSABLE TABLET ONE (03:19)
[2020-01-18] MEDS: METHADONE 120 MG, METHADONE 5 MG PO SCH (06:31)
[2020-01-18] MEDS: GABAPENTIN 300 MG CAPSULE PO SCH ×3 (06:31→21:47)
[2020-01-18] MEDS: cloNIDine HCL 0.1 MG TABLET PO SCH ×2 (09:59→21:47)
[2020-01-18] MEDS: NICOTINE 7 MG/24 HOURS TOPICAL PATCH TD SCH (09:59)
[2020-01-18] MEDS: BACITRACIN 0.9 GM PACKET TP SCH ×2 (09:59→22:13)
[2020-01-18] MEDS: PRENATAL VITAMINS W/ FOLIC ACID TABLET (FP) PO SCH (10:00)
[2020-01-18] MEDS ORDERED: PT OWN MED DRAWER 7, Y5N ONE (19:46)
[2020-01-18] MEDS: AMITRIPTYLINE HCL 25 MG TABLET PO SCH (21:46)
[2020-01-18] MEDS: QUEtiapine FUMARATE 400 MG TABLET PO SCH (21:46)
[2020-01-18] MEDS: THIAMINE HCL 100 MG TABLET (FP) PO SCH (21:47)
[2020-01-18] MEDS: SUVOREXANT 10 MG TABLET PO PRN (21:48)
[2020-01-18] MEDS: MELATONIN 5 MG TABLETS PO SCH (21:49)
[2020-01-19] MEDS ORDERED: METHADONE HCL 40 MG DISPERSABLE TABLET ONE (05:25)
[2020-01-19] MEDS ORDERED: METHADONE HCL 5 MG TABLET ONE (05:25)
[2020-01-19] MEDS: GABAPENTIN 300 MG CAPSULE PO SCH ×3 (06:22→21:16)
[2020-01-19] MEDS: METHADONE 120 MG, METHADONE 5 MG PO SCH (06:22)
[2020-01-19] MEDS: cloNIDine HCL 0.1 MG TABLET PO SCH ×2 (09:59→21:18)
[2020-01-19] MEDS: PRENATAL VITAMINS W/ FOLIC ACID TABLET (FP) PO SCH (10:00)
[2020-01-19] MEDS: BACITRACIN 0.9 GM PACKET TP SCH ×2 (10:00→21:19)
[2020-01-19] MEDS: NICOTINE 7 MG/24 HOURS TOPICAL PATCH TD SCH (10:00)
[2020-01-19] MEDS: SUVOREXANT 10 MG TABLET PO PRN (21:16)
[2020-01-19] MEDS: THIAMINE HCL 100 MG TABLET (FP) PO SCH (21:16)
[2020-01-19] MEDS: QUEtiapine FUMARATE 400 MG TABLET PO SCH (21:17)
[2020-01-19] MEDS: AMITRIPTYLINE HCL 25 MG TABLET PO SCH (21:17)
[2020-01-19] MEDS: MELATONIN 5 MG TABLETS PO SCH (21:19)
[2020-01-20] MEDS ORDERED: METHADONE HCL 5 MG TABLET ONE (05:26)
[2020-01-20] MEDS ORDERED: METHADONE HCL 40 MG DISPERSABLE TABLET ONE (05:27)
[2020-01-20] MEDS: METHADONE 120 MG, METHADONE 5 MG PO SCH (06:06)
[2020-01-20] MEDS: GABAPENTIN 300 MG CAPSULE PO SCH ×3 (06:06→21:19)
[2020-01-20] MEDS: cloNIDine HCL 0.1 MG TABLET PO SCH ×2 (09:37→21:21)
[2020-01-20] MEDS: NICOTINE 7 MG/24 HOURS TOPICAL PATCH TD SCH (09:38)
[2020-01-20] MEDS: BACITRACIN 0.9 GM PACKET TP SCH ×2 (09:38→21:20)
[2020-01-20] MEDS: NICOTINE POLACRILEX 2 MG GUM BUC PRN (09:38)
[2020-01-20] MEDS: PRENATAL VITAMINS W/ FOLIC ACID TABLET (FP) PO SCH (09:38)
--- NOTE | 2020-01-20 12:16 | PN ---
[facility] Progress Note Note: Psychiatric nurse practitioner note: Patient scheduled for discharge tomorrow. A 30 day prescription of Seroquel 800mg HS + Elavil 50mg HS was electronically sent to [facility] [id number].
[2020-01-20] MEDS: THIAMINE HCL 100 MG TABLET (FP) PO SCH (21:18)
[2020-01-20] MEDS: AMITRIPTYLINE HCL 25 MG TABLET PO SCH (21:19)
[2020-01-20] MEDS: QUEtiapine FUMARATE 400 MG TABLET PO SCH (21:20)
[2020-01-20] MEDS: MELATONIN 5 MG TABLETS PO SCH (21:21)
[2020-01-20] MEDS ORDERED: SUVOREXANT 15 MG TABLET PO PRN (22:00)
[2020-01-21] MEDS ORDERED: METHADONE 120 MG, METHADONE 5 MG PO SCH (06:00)
[2020-01-21] MEDS ORDERED: METHADONE HCL 40 MG DISPERSABLE TABLET ONE (06:20)
[2020-01-21] MEDS ORDERED: METHADONE HCL 5 MG TABLET ONE (06:20)
[2020-01-21] MEDS: GABAPENTIN 300 MG CAPSULE PO SCH (06:32)
[2020-01-21 07:16] VITALS: BP 116/79; PULSE 91; TEMP 97.5
[2020-01-21] MEDS: cloNIDine HCL 0.1 MG TABLET PO SCH (09:06)
[2020-01-21] MEDS: NICOTINE 7 MG/24 HOURS TOPICAL PATCH TD SCH (09:07)
[2020-01-21] MEDS: BACITRACIN 0.9 GM PACKET TP SCH (09:07)
[2020-01-21] MEDS: PRENATAL VITAMINS W/ FOLIC ACID TABLET (FP) PO SCH (09:22)
--- NOTE | 2020-01-21 15:25 | DS ---
[facility] Rehab Discharge Summary - [facility] Rehab Discharge Summary Admission Date: 12/19/19 Discharge Date: 01/21/20 - History Present History: Alcohol dependence, MMTP, Sedative dependence Pertinent Past History: Migraines HTN(?withdrawal sx) Hep C Bipolar Disorder PTSD - Discharge Physical Exam Vital Signs: Vital Signs Temperature 97.5 F L 01/21/20 07:14 Pulse Rate 91 H 01/21/20 07:14 Respiratory Rate 18 01/21/20 07:14 Blood Pressure 116/79 01/21/20 07:14 O2 Sat by Pulse Oximetry (%) 99 01/21/20 07:14 General:WDWN female, Alert o x 3, nad Cardiac:s1 s2,rrr lungs:ctab abdomen:soft,flat, +bs,nt,nd MSK/Skin:Active FROM, all limbs; oob ambulating with steady gait; no edema, skin intact. Pertinent Admission Physical Exam Findings: Laboratory Tests 12/19/19 12/19/19 12/19/19 11:46 12:50 12:50 WBC 7.8 RBC 4.04 Hgb 12.5 Hct 37.4 MCV 92.7 MCH 30.9 MCHC 33.4 RDW 13.6 Plt Count 233 D MPV 9.1 Sodium Potassium Chloride Carbon Dioxide Anion Gap BUN Creatinine Est GFR (CKD-EPI)AfAm Est GFR (CKD-EPI)NonAf Random Glucose Calcium Total Bilirubin AST ALT Alkaline Phosphatase Total Protein Albumin Urine Color Urine Appearance Urine pH Ur Specific [place] Urine Protein Urine Glucose (UA) Urine Ketones Urine Blood Urine Nitrite Urine Bilirubin Urine Urobilinogen Ur Leukocyte Esterase Urine WBC (Auto) Urine RBC (Auto) Urine Casts (Auto) U Epithel Cells (Auto) U Sm Round Cell (Auto) Urine Bacteria (Auto) POC Urine HCG, Qual Negative Syphilis Serology COVID-19 (NAHID) HIV Ag/Ab Combo Qual Negative 12/19/19 12/19/19 12/19/19 12:50 12:50 14:00 WBC RBC Hgb Hct MCV MCH MCHC RDW Plt Count MPV Sodium 137 Potassium 4.4 Chloride 104 Carbon Dioxide 26 Anion Gap 7 L BUN 15.8 Creatinine 1.8 H Est GFR (CKD-EPI)AfAm 42.12 Est GFR (CKD-EPI)NonAf 36.34 Random Glucose 90 Calcium 8.8 Total Bilirubin 0.3 AST 57 H ALT 84 H Alkaline Phosphatase 96 Total Protein 7.8 Albumin 3.7 Urine Color Urine Appearance Urine pH Ur Specific [place] Urine Protein Urine Glucose (UA) Urine Ketones Urine Blood Urine Nitrite Urine Bilirubin Urine Urobilinogen Ur Leukocyte Esterase Urine WBC (Auto) Urine RBC (Auto) Urine Casts (Auto) U Epithel Cells (Auto) U Sm Round Cell (Auto) Urine Bacteria (Auto) POC Urine HCG, Qual Syphilis Serology Non-reactive COVID-19 (NAHID) Not detected HIV Ag/Ab Combo Qual 12/24/19 12/24/19 12/25/19 07:40 07:40 13:25 WBC RBC Hgb Hct MCV MCH MCHC RDW Plt Count MPV Sodium 134 L Potassium 4.2 Chloride 99 Carbon Dioxide 27 Anion Gap 8 BUN 18.9 H Creatinine 1.0 Est GFR (CKD-EPI)AfAm 85.72 Est GFR (CKD-EPI)NonAf 73.96 Random Glucose 104 Calcium 9.8 Total Bilirubin AST 41 H ALT 54 Alkaline Phosphatase Total Protein Albumin Urine Color Yellow Urine Appearance Cloudy Urine pH 6.5 Ur Specific [place] 1.019 Urine Protein Negative Urine Glucose (UA) Negative Urine Ketones Negative Urine Blood Negative Urine Nitrite Positive H Urine Bilirubin Negative Urine Urobilinogen 0.2 Ur Leukocyte Esterase Trace Urine WBC (Auto) 78 Urine RBC (Auto) 8 Urine Casts (Auto) 4 U Epithel Cells (Auto) >36 U Sm Round Cell (Auto) Wbcs Urine Bacteria (Auto) >9,000 POC Urine HCG, Qual Syphilis Serology COVID-19 (NAHID) HIV Ag/Ab Combo Qual 12/29/19 17:03 WBC RBC Hgb Hct MCV MCH MCHC RDW Plt Count MPV Sodium Potassium Chloride Carbon Dioxide Anion Gap BUN Creatinine Est GFR (CKD-EPI)AfAm Est GFR (CKD-EPI)NonAf Random Glucose Calcium Total Bilirubin AST ALT Alkaline Phosphatase Total Protein Albumin Urine Color Yellow Urine Appearance Cloudy Urine pH 6.0 Ur Specific [place] 1.019 Urine Protein Negative Urine Glucose (UA) Negative Urine Ketones Negative Urine Blood 1+ H Urine Nitrite Positive H Urine Bilirubin Negative Urine Urobilinogen 1.0 Ur Leukocyte Esterase 2+ H Urine WBC (Auto) 845 Urine RBC (Auto) 34 Urine Casts (Auto) 4 U Epithel Cells (Auto) 4 U Sm Round Cell (Auto) Urine Bacteria (Auto) >9,000 POC Urine HCG, Qual Syphilis Serology COVID-19 (NAHID) HIV Ag/Ab Combo Qual - Treatment Discharge Condition: Discharge condition good, Rehabilitated safely, Responded well, Outpatient referral accepted Hospital Course: CD aftercare referral accepted to [facility] - Medication Discharge Medications: Ambulatory Orders Methadone [Dolophine -] 125 mg PO DAILY 01/27/17 cloNIDine HCL [Catapres -] 0.2 mg PO BID 01/27/17 Clonidine HCl [Catapres] 0.3 mg PO BID 08/28/19 Amitriptyline HCl [Elavil -] 25 mg PO HS #30 tablet 09/24/19 Quetiapine Fumarate [Seroquel -] 800 mg PO HS #60 tab 09/24/19 Amitriptyline HCl [Elavil -] 50 mg PO HS #60 tablet 01/20/20 Quetiapine Fumarate [Seroquel -] 800 mg PO HS #60 tablet 01/20/20 Gabapentin 300 mg PO TID #90 cap 01/21/20 - Medication-Assisted Treatment (MAT) Medication-Assisted Treatment (MAT): No - Discharge Instructions Diet, activity, other medical instructions: Diet:KANWAL Activity: oob ad joanna Other medical instructions:follow up with medical management with your provider Dr. Blake Carbajal as needed. - Diagnosis (1) Hepatitis-C Status: Chronic Qualifiers: Viral hepatitis chronicity: unspecified (2) Sedative dependence Status: Chronic (3) Nicotine dependence Status: Chronic Qualifiers: Nicotine product type: cigarettes Substance use status: uncomplicated Qualified Code(s): F17.210 - Nicotine dependence, cigarettes, uncomplicated (4) HTN (hypertension) Status: Chronic Qualifiers: Hypertension type: unspecified Qualified Code(s): I10 - Essential (primary) hypertension (5) Alcohol dependence Status: Chronic Qualifiers: Substance use status: uncomplicated Qualified Code(s): F10.20 - Alcohol dependence, uncomplicated - Follow-up Referral Minutes to complete discharge: 25 - AMA Did Patient Leave Against Medical Advice: No
== END 2020-01-21 09:12 | disposition home or self-care (01) | DRG 895 ==
LOC: YASAS 10:26 → Y6N 13:06 → Y3E 12-24 11:24
PROVIDERS: ADMIT Allergy & Immunology; ATTEND Allergy & Immunology
PROC: HZ2ZZZZ Detoxification Services for Substance Abuse Treatment (ICD-10-PCS; 2019-12-19)
PROC: HZ42ZZZ Group Counseling for Substance Abuse Treatment, Cognitive-Behavioral (ICD-10-PCS; principal; 2019-12-24)
DX: F10.20 Alcohol dependence, uncomplicated (principal); F11.20 Opioid dependence, uncomplicated; F13.20 Sedative, hypnotic or anxiolytic dependence, uncomplicated; F19.282 Other psychoactive substance dependence with psychoactive substance-induced sleep disorder; N17.9 Acute kidney failure, unspecified; F17.210 Nicotine dependence, cigarettes, uncomplicated; F25.9 Schizoaffective disorder, unspecified; F19.24 Other psychoactive substance dependence with psychoactive substance-induced mood disorder; F31.9 Bipolar disorder, unspecified; F43.10 Post-traumatic stress disorder, unspecified; I10 Essential (primary) hypertension; G40.909 Epilepsy, unspecified, not intractable, without status epilepticus; G43.909 Migraine, unspecified, not intractable, without status migrainosus; B18.2 Chronic viral hepatitis C; K21.9 Gastro-esophageal reflux disease without esophagitis; L98.8 Other specified disorders of the skin and subcutaneous tissue; R21 Rash and other nonspecific skin eruption; R74.01 Elevation of levels of liver transaminase levels; R79.89 Other specified abnormal findings of blood chemistry; M25.571 Pain in right ankle and joints of right foot; Z91.81 History of falling; Z62.810 Personal history of physical and sexual abuse in childhood; Z91.410 Personal history of adult physical and sexual abuse; Z56.0 Unemployment, unspecified; Z91.013 Allergy to seafood
CPT/HCPCS: 36415; 73610-TC-RT-FY; 80048; 80053; 81003; 81025; 84450; 84460; 85027; 86780; 87086; 87186; 87389; J0735; U0003